=== PATIENT | female | born 1950 | race Caucasian/White ===

== ENCOUNTER 2018-04-19 16:10 | Emergency (ER) | payer MEDICARE, OTHER ==
--- OUTSIDE RECORDS SUMMARY | 2018-04-19 16:13 | XMS REPORT ---
:1950 Author Organization [facility] Address [address] [place] [address] Care Team Providers Name Role Phone RENZO MELGAR Primary Care Provider Unavailable RENZO MELGAR M.D. Unavailable Unavailable Problems This patient has no known problems. Allergies, Adverse Reactions, Alerts This patient has no known allergies or adverse reactions. Medications This patient has no known medications. Encounters Start End Encounter Admission Attending Care Care Encounter Date/Time Date/Time Type Type Clinicians Facility Department ID 2018-02-04 2018-02-04 Outpatient C [facility] [id number] 10:19:00 10:19:00 Juan MULLER Results Test Description Test Time Test Comments Text Results Atomic Results Result Comments Sed Rate ESR ([place]) 2017-09-03 02:32:00 Test Item Value Reference Range Comments ESR (test code=HESR) 24 mm/Hr 0-20 Thyroid Stimulating Hormone (TSH)2017-09-02 23:41:00 Test Item Value Reference Range Comments TSH (test code=TSH) 3.68 mIU/mL 0.270-4.200 Thyroxine (T4)2017-09-02 23:41:00 Test Item Value Reference Range Comments T4, Total (test code=TT4) 7.3 ug/dL 4.6-12.0 Lipid [id number] 23:34:00 Test Item Value Reference Range Comments Cholesterol (test 172 mg/dL 0-200 code=CHOL) Triglycerides (test 129 mg/dL 9-200 code=TRIG) HDL (test code=HDL) 39 mg/dL 50-60 Chol/HDL (test 4.4 Ratio 0.0-4.4 code=CHOLPHDL) LDL, Calculated (test 107 0-130 (NOTE)RISK OF HEART code=LDLC) DISEASEPublished by Faro[place] Heart AssociationAnalyte Optimal Boderline Increased RiskCHOL <200 200-239 >240TRIG <150 150-199 >200HDL Male: >60 <40HDL Female: >60 <50LDL <100 130-159 >160LDL NEAR OPTIMAL IS 100-129 VLDL (test code=VLDL) 26 mg/dL 5-40 LDL/HDL (test code=LDLPHDL) 3 Comprehensive Metabolic [id number] 23:34:00 Test Item Value Reference Range Comments Sodium (test code=NA) 138 mmol/L 135-145 Potassium (test code=K) 4.1 mmol/L 3.5-5.1 Chloride (test code=CL) 99 mmol/L 98-105 Carbon Dioxide (test 28 mmol/L 22-29 code=CO2) Glucose (test code=GLU) 135 mg/dL 70-115 Blood Urea Nitrogen (test 38 mg/dL 8-23 code=BUN) Creatinine (test 1.5 mg/dL 0.5-0.9 code=CREAT) Calcium (test code=CA) 9.7 mg/dL 8.3-10.5 Prot Total (test code=TP) 6.4 g/dL 6.4-8.3 Albumin (test code=ALB) 3.9 g/dL 3.5-5.2 A/G Ratio (test 1.6 Ratio code=AGRATIO) Globulin (test code=GLOB) 2.5 2.9-3.1 Bili Total (test 0.3 mg/dL 0.1-0.9 code=TBIL) Alk Phos (test 92 U/L 35-104 code=APHOS) AST (test code=AST) 24 U/L 1-32 ALT (test code=ALT) 21 U/L 1-33 BUN/Creatinine Ratio 25.3 (test code=BCRATIO) Anion Gap (test 11 mmol/L 7-16 code=AGAP) Estimated GFR (test 37 mL/min/1.73m2 eGFR (estimated Glomerular code=GFR) Filtration Rate) is an estimated value,calculated from the patient's serum creatinine using the MDRD equation.It is NOT the patient's actual GFR. The eGFR provides a more clinicallyuseful measure of kidney disease than serum creatinine alone.This calculation takes sex and race into account, if the informationis provided. If the race is not provided, and the patient isAfrican-Faroese, multiply by 1.212. If sex is not provided, and thepatient is female, multiply by 0.742. Results for patients <18 years ofage have not been validated by the MDRD study and should be interpretedwith caution.eGFR Result Interpretation:eGFR > or=60 is in the Normal RangeeGFR < 60 may mean kidney diseaseeGFR < 15 may mean kidney failureRanges recommended by the National Kidney Foundation,http://nkdep.nih .gov T3 [id number] 23:06:00 Test Item Value Reference Range Comments T3, Uptake (test code=T3U) 34 % 28-41 CBC with [id number] 22:32:00 Test Item Value Reference Range Comments WBC (test code=WBC) 8.5 K/cumm 4.4-10.5 RBC (test code=RBC) 4.32 M/cumm 3.75-5.20 Hemoglobin (test code=HGB) 12.7 gm/dL 12.2-14.8 Hematocrit (test code=HCT) 40.0 % 36.5-44.4 MCV (test code=MCV) 92.6 fL 80-100 MCH (test code=MCH) 29.3 pg 27.0-32.5 MCHC (test code=MCHC) 31.7 g/dL 32.0-37.5 RDW (test code=RDW) 13.4 % 11.5-14.5 Platelet Count (test code=PLTCT) 221 K/cumm 140-440 MPV (test code=MPV) 9.8 fL Diff Method (test code=DIFFM) Auto Neutrophil (test code=NEUT) 74.7 % 36-70 Lymphocyte (test code=LYMPH) 16.0 % 12-44 Monocyte (test code=MONO) 5.5 % 0-11 Eosinophil (test code=EOS) 3.2 % 0-7 Basophil (test code=BASO) 0.6 % 0-2 Neutro Abs (test code=ANEUT) 6.3 K/cumm 1.6-7.4 Lymph Abs (test code=ALYMPH) 1.4 K/cumm 0.5-4.6 Shannon Abs (test code=AMONO) 0.5 K/cumm 0.0-1.2 Eos Abs (test code=AEOS) 0.27 K/cumm 0.00-0.74 Baso Abs (test code=ABASO) 0.1 K/cumm 0.00-0.21
--- OUTSIDE RECORDS SUMMARY | 2018-04-19 16:13 | XMS REPORT | Clinical Summary ---
:1950 Author Organization [facility] Address [address] [place] [address] Care Team Providers Name Role Phone Gia Hayes [facility] Primary Care Provider Allergies No Known Allergies Current Medications Prescription Sig. Disp. Refills Start End Date Status Date aspirin (ECOTRIN) Take 81 mg by Active 81 MG enteric mouth daily. coated tablet atorvastatin Take 40 mg by Active (LIPITOR) 40 MG mouth daily. tablet levothyroxine Take 25 mcg by Active (SYNTHROID, mouth every LEVOXYL) 25 mcg morning. tablet magnesium oxide Take 250 mg by Active 250 mg tablet mouth daily. nitroglycerin Place 0.4 mg Active (NITROSTAT) 0.4 MG under the tongue SL tablet every 5 (five) minutes as needed for chest pain. omeprazole Take 40 mg by Active (PriLOSEC) 40 MG mouth daily. capsule primidone Take 50 mg by Active (MYSOLINE) 50 MG mouth 4 (four) tablet times a day. levETIRAcetam Take 750 mg by Active (KEPPRA) 750 MG mouth 2 (two) tablet times a day. ondansetron Take 4 mg by Active (ZOFRAN) 4 MG mouth every 8 tablet (eight) hours as needed for nausea or vomiting. sertraline Take 50 mg by Active (ZOLOFT) 50 MG mouth daily. tablet MULTIVITAMIN ORAL Take by mouth Active daily. budesonide-formote Inhale 2 puffs 2 10.2 Inhaler 0 Active rol (SYMBICORT) (two) times a 8 80-4.5 day. mcg/actuation inhaler ipratropium Take 2.5 mL (0.5 75 mL 6 01/15/20 Active (ATROVENT) 0.02 % mg total) by 8 19 nebulizer solution nebulization 4 (four) times a day. simvastatin Take 5 mg by Active (ZOCOR) 5 MG mouth nightly. tablet gabapentin Take 100 mg by Active (NEURONTIN) 100 mg mouth 2 (two) capsule times a day. budesonide Take 2 mL (0.5 mg 360 mL 2 09/07/20 Active (PULMICORT) 0.5 total) by 8 18 mg/2 mL nebulizer nebulization 2 solution (two) times a day for 180 days. budesonide Take 2 mL (0.5 mg 60 mL 6 01/15/20 Discontinued (PULMICORT) 0.5 total) by 8 18 mg/2 mL nebulizer nebulization once solution daily for 183 days. ipratropium Take 2.5 mL (0.5 75 mL 6 01/15/20 Discontinued (ATROVENT) 0.02 % mg total) by 8 18 nebulizer solution nebulization 4 (four) times a day. budesonide Take 2 mL (0.5 mg 60 mL 6 03/09/20 Discontinued (PULMICORT) 0.5 total) by 8 18 mg/2 mL nebulizer nebulization once solution daily for 183 days. budesonide Take 2 mL (0.5 mg 360 mL 2 03/09/20 Discontinued (PULMICORT) 0.5 total) by 8 18 mg/2 mL nebulizer nebulization 2 solution (two) times a day for 180 days. budesonide Take 2 mL (0.5 mg 360 mL 2 03/11/20 Discontinued (PULMICORT) 0.5 total) by 8 18 mg/2 mL nebulizer nebulization 2 solution (two) times a day for 180 days. budesonide Take 2 mL (0.5 mg 360 mL 2 03/11/20 Discontinued (PULMICORT) 0.5 total) by 8 18 mg/2 mL nebulizer nebulization 2 solution (two) times a day for 180 days. Active Problems Problem Noted Date Reactive airway disease 03/09/2018 Movement disorder 03/09/2018 Extrinsic asthma without complication 02/09/2018 Gastroesophageal reflux disease 12/31/2017 Chronic seasonal allergic rhinitis due to pollen 12/31/2017 Weight loss 12/31/2017 Dyspnea on exertion Encounters Date Type Specialty Care Team Description 03/11/2018 Orders Only Pulmonology Maty Long MA 03/09/2018 Office Visit Pulmonology Leobardo Lainez, Severe persistent reactive airway disease without complication (Primary Dx); Movement disorder; Chronic seasonal allergic rhinitis due to pollen; Gastroesophageal reflux disease, esophagitis presence not specified 03/03/2018 Orders Only Pulmonology Emre Pearson MD 02/21/2018 Orders Only Pulmonology Manuel Harmon MD 02/18/2018 Orders Only Pulmonology Dimitry Baldwin MD 02/09/2018 Office Visit Pulmonology Leobardo Lainez, Dyspnea on exertion ( Primary Dx); Chronic seasonal allergic rhinitis due to pollen; Extrinsic asthma without complication, unspecified asthma severity, unspecified whether persistent; Gastroesophageal reflux disease, esophagitis presence not specified 02/08/2018 Telephone Pulmonology Maty Long MA 02/01/2018 Orders Only Pulmonology Diana, Moderate persistent ARMIDA Da Silva reactive airway disease without complication 01/21/2018 Telephone Pulmonology Maty Long MA 01/19/2018 Telephone Pulmonology Maty Long MA 01/19/2018 Telephone Pulmonology Rekha Ortiz MA 01/12/2018 Orders Only Pulmonology Leobardo Lainez, Moderate persistent reactive airway disease without complication (Primary Dx); Chronic seasonal allergic rhinitis due to pollen; Dyspnea on exertion 01/11/2018 Orders Only Pulmonology Maty Long MA Dyspnea on exertion 12/31/2017 Clinical Support Pulmonology Agnieszka Lucero Dyspnea on exertion 12/31/2017 Clinical Support Pulmonology Agnieszka Lucero Dyspnea on exertion 12/31/2017 Office Visit Pulmonology Leobardo Lainez, Dyspnea on exertion ( Primary Dx); Gastroesophageal reflux disease, esophagitis presence not specified; Chronic seasonal allergic rhinitis due to pollen; Weight loss after 04/18/2017 Immunizations Name Dates Previously Given Next Due FLUZONE HIGH-DOSE PF 07/16/2017 Pneumococcal Polysaccharide 03/07/2018 Tdap 03/07/2018 Family History Medical History Relation Name Comments Diabetes Father Heart failure Father Diabetes Mother Heart failure Mother Relation Name Status Comments Father Mother Social History Tobacco Use Types Packs/Day Years Used Date Never Smoker Smokeless Tobacco: Never Used Alcohol Use Drinks/Week oz/Week Comments No Sex Assigned at Date Recorded Not on file Last Filed Vital Signs Vital Sign Reading Time Taken Blood Pressure 120/60 03/09/2018 10:10 AM CDT Pulse 83 03/09/2018 10:10 AM CDT Temperature 36.9 C (98.5 F) 02/09/2018 11:00 AM CDT Respiratory Rate - - Oxygen Saturation 98% 03/09/2018 10:10 AM CDT Inhaled Oxygen Concentration - - Weight 59.4 kg (131 lb) 03/09/2018 10:10 AM CDT Height - - Body Mass Index - - Plan of Treatment Date Type Specialty Care Team Description 05/11/2018 [place] [address] [facility] [address] [place] [address] [phone] Health Maintenance Due Date Last Done Comments CERVICAL CANCER SCREENING 1973 BREAST CANCER SCREENING 2002 COLON CANCER SCREENING 2002 SHINGRIX VACCINE (#1) 2002 ZOSTER VACCINE 2012 PNEUMOCOCCAL-13 2017 INFLUENZA VACCINE 06/15/2018 07/16/2017, 07/16/2017 (Previously completed) PNEUMOCOCCAL POLYSACCHARIDE VACCINE Completed 03/07/2018 AGE 65 AND OVER Procedures Procedure Name Priority Date/Time Associated Diagnosis Comments CV RIGHT HEART CATH Routine 02/04/2018 12:00 AM CDT SELECTIVE CORONARY COLONOSCOPY-EXTERNAL Routine 10/15/2017 12:00 AM [employer]PER[employer] after 04/18/2017 Results Cv right heart cath with coronary angiography (02/04/2018)Case Request GI (12/17)Miscellaneous Lab Result (11/19/2017) Specimen Performing Laboratory Blood Surgical pathology request (10/20/2017) Specimen Performing Laboratory Tissue COLONOSCOPY-EXTERNAL (10/15/2017)NM Brain Scan W Vascular Flow (09/21/2017)MRI Brain Wo Contrast (08/17/2017)after 04/18/2017 Insurance Payer Benefit Plan / Group Subscriber ID Type Phone Address MEDICAID MEDICAID xxxxxxxxx Medicaid [facility] MEDICARE AARP MEDICARE COMPLETE MCR xxxxxxxxx HMO Home: [phone] BRUNIL[address]IETO [id number]
[2018-04-19] MEDS ORDERED: MEPERIDINE HCL 25 MG/0.5 ML ONE ×2 (16:46→16:53)
[2018-04-19] MEDS ORDERED: NA CHLORIDE 0.9% 500 ML ONE (16:46)
[2018-04-19] MEDS ORDERED: ONDANSETRON 4 MG/2 ML VIAL ONE (16:56)
--- NOTE | 2018-04-19 17:14 | RAD REPORT ---
EXAM DESCRIPTION: CT - Head Brain Wo Cont - 04/19/2018 5:06 pm CLINICAL HISTORY: Headache COMPARISON: 03/15/2017 TECHNIQUE: All CT scans are performed using dose optimization technique as appropriate and may inclu de automated exposure control or mA/KV adjustment according to patient size. FINDINGS: No intracranial hemorrhage, hydrocephalus or extra-axial fluid collection.No areas of brai n edema or evidence of midline shift. The paranasal sinuses and mastoids are clear. Two screws are noted in the frontal calvarium. Vertebra l arteries are calcified. IMPRESSION: No acute intracranial abnormality.
--- NOTE | 2018-04-19 18:55 | EDPHYS ---
Physician Documentation [facility] Name: Kailey Mcdermott Age: 67 yrs Sex: Female : 1950 Arrival Date: 04/19/2018 Time: 16:14 Bed 6 Private MD: Out, [facility] ED Physician Ted Yap HPI: 04/19 17:01 This 67 yrs old Female presents to ER via Ambulatory with complaints of rn headache. Historical: - Allergies: 16:23 No Known Allergies; aj - Home Meds: 16:23 aspirin 81 mg Oral TbEC 1 tab once daily [Active]; Keppra 750 mg Oral tab 1 tab 2 times aj per day [Active]; levothyroxine 25 mcg tab once daily [Active]; gabapentin oral oral [Active]; Zocor Oral [Active]; Primidone Oral [Active]; - PMHx: 16:23 Anxiety; benign tremors; GERD; Hernia; High Cholesterol; Hypertension; Hypothyroidism; aj narrowed throat; Seizures; - PSHx: 16:23 Deep brain stimulator; aj - Immunization history:: Adult Immunizations up to date. - Social history:: Smoking status: Patient/guardian denies using tobacco. - Ebola Screening: : Patient negative for fever greater than or equal to 101.5 degrees Fahrenheit, and additional compatible Ebola Virus Disease symptoms Patient denies exposure to infectious person Patient denies travel to an Ebola-affected area in the 21 days before illness onset No symptoms or risks identified at this time. - Family history:: not pertinent. - Hospitalizations: : No recent hospitalization is reported. ROS: 18:09 Constitutional: Negative for fever, chills, and weight loss, Eyes: Negative for injury, rn pain, redness, and discharge, Neck: Negative for injury, pain, and swelling, Cardiovascular: Negative for chest pain, palpitations, and edema, Respiratory: Negative for shortness of breath, cough, wheezing, and pleuritic chest pain, Abdomen/GI: Negative for abdominal pain, nausea, vomiting, diarrhea, and constipation, Back: Negative for injury and pain, MS/Extremity: Negative for injury and deformity, Skin: Negative for injury, rash, and discoloration, Neuro: Negative for numbness, tingling, and seizure. Exam: 18:09 Constitutional: This is a well developed, well nourished patient who is awake, alert, rn and in no acute distress. Head/Face: Normocephalic, 4 sutured surgical wounds on scalp, no active bleeding, no crepitus or sign of infection Eyes: Pupils equal round and reactive to light, extra-ocular motions intact. Lids and lashes normal. Conjunctiva and sclera are non-icteric and not injected. Cornea within normal limits. Periorbital areas with no swelling, redness, or edema. Neuro: Awake and alert, GCS 15, oriented to person, place, time, and situation. Cranial nerves II-XII grossly intact. Motor strength 4+/5 in all extremities. Sensory grossly intact. Vital Signs: 16:23 BP 145 / 79; Pulse 91; Resp 16; Temp 98.7; Pulse Ox 95% ; Weight 58.06 kg; Height 5 ft. aj 8 in. (172.72 cm); 17:23 BP 148 / 76; Pulse 57; Resp 17; Pulse Ox 95% on R/A; tw2 18:24 BP 148 / 77; Pulse 78; Resp 16; Pulse Ox 95% on R/A; tw2 16:23 Body Mass Index 19.46 (58.06 kg, 172.72 cm) aj Simpson Coma Score: 18:09 Eye Response: spontaneous(4). Verbal Response: oriented(5). Motor Response: obeys rn commands(6). Total: 15. MDM: 16:35 Patient medically screened. rn 18:09 Differential diagnosis: migraine, post-surgical pain, post-surgical complication. Data rn reviewed: vital signs, nurses notes, radiologic studies, CT scan, and as a result, I will discharge patient. Counseling: I had a detailed discussion with the patient and/or guardian regarding: the historical points, exam findings, and any diagnostic results supporting the discharge/admit diagnosis, radiology results, the need for outpatient follow up, to return to the emergency department if symptoms worsen or persist or if there are any questions or concerns that arise at home. 18:11 Special discussion: I discussed with the patient/guardian in detail that at this point rn there is no indication for admission to the hospital. It is understood, however, that if the symptoms persist or worsen the patient needs to return immediately for re-evaluation. 04/19 16:42 Order name: CT Head Brain wo Cont; Complete Time: 17:25 rn 06/05 16:42 Order name: IV Start; Complete Time: 16:59 rn Administered Medications: 16:50 Drug: NS 0.9% 500 ml Route: IV; Rate: bolus; Site: right antecubital; tw2 16:53 Drug: Demerol 25 mg Route: IVP; Site: right antecubital; tw2 16:57 Drug: Zofran 4 mg Route: IVP; Site: right antecubital; 2 Disposition: 04/19/18 18:54 Discharged to Home. Impression: Headache, Post-operative pain. - Condition is Stable. - Discharge Instructions: General Headache Without Cause. - Prescriptions for Zofran ODT 4 mg Oral tablet,disintegrating - place 1 tablet by TRANSLINGUAL route every 8-10 hours As needed; 20 tablet. Tylenol- Codeine #3 300-30 mg Oral Tablet - take 1 tablet by ORAL route every 6 hours As needed; 20 tablet. - Medication Reconciliation Form, Thank You Letter, Antibiotic Education, Prescription Opioid Use form. - Follow up: Private Physician; When: As needed; Reason: Recheck today's complaints, Re-evaluation by your physician. - Problem is new. - Symptoms have improved. Signatures: Dispatcher [employer] EDMS Migel Grimm RN RN sg Myers, Amanda RN Ted Storey MD MD rn Wise, Tara, RN RN tw2 Corrections: (The following items were deleted from the chart) 19:04 18:54 04/19/2018 18:54 Discharged to Home. Impression: Headache; Post-operative pain. sg Condition is Stable. Forms are Medication Reconciliation Form, Thank You Letter, Antibiotic Education, Prescription Opioid Use. Follow up: Private Physician; When: As needed; Reason: Recheck today's complaints, Re-evaluation by your physician. Problem is new. Symptoms have improved. rn
--- NOTE | 2018-04-19 18:55 | ER ---
Nurse's Notes [facility] Name: Kailey Mcdermott Age: 67 yrs Sex: Female : 1950 Arrival Date: 04/19/2018 Time: 16:14 Bed 6 Private MD: Out, [facility] Diagnosis: Headache;Post-operative pain Presentation: 04/19 16:20 Presenting complaint: Patient states: Deep brain stimulator placed this AM. Reports aj small amount of bleeding from insertion sites with pain to site on left side of head. Transition of care: patient was not received from another setting of care. Onset of symptoms was April 19, 2018. Risk Assessment: Do you want to hurt yourself or someone else? Patient reports no desire to harm self or others. Care prior to arrival: None. 16:20 Method Of Arrival: Ambulatory aj 16:20 Acuity: MERYL 3 aj 18:26 Initial Sepsis Screen: Does the patient meet any 2 criteria? No. Patient's initial tw2 sepsis screen is negative. Does the patient have a suspected source of infection? No. Patient's initial sepsis screen is negative. Triage Assessment: 16:23 General: Appears in no apparent distress. comfortable, Behavior is calm, cooperative, aj appropriate for age. Pain: Complains of pain in face and scalp. Neuro: Level of Consciousness is awake, alert, obeys commands, Oriented to person, place, time, situation, Appropriate for age. Respiratory: Airway is patent Respiratory effort is even, unlabored, Respiratory pattern is regular, symmetrical. GI: Reports nausea. Derm: Skin is intact, is healthy with good turgor, Skin is pink, warm \\T\\ dry. normal. Historical: - Allergies: 16:23 No Known Allergies; aj - Home Meds: 16:23 aspirin 81 mg Oral TbEC 1 tab once daily [Active]; Keppra 750 mg Oral tab 1 tab 2 times aj per day [Active]; levothyroxine 25 mcg tab once daily [Active]; gabapentin oral oral [Active]; Zocor Oral [Active]; Primidone Oral [Active]; - PMHx: 16:23 Anxiety; benign tremors; GERD; Hernia; High Cholesterol; Hypertension; Hypothyroidism; aj narrowed throat; Seizures; - PSHx: 16:23 Deep brain stimulator; aj - Immunization history:: Adult Immunizations up to date. - Social history:: Smoking status: Patient/guardian denies using tobacco. - Ebola Screening: : Patient negative for fever greater than or equal to 101.5 degrees Fahrenheit, and additional compatible Ebola Virus Disease symptoms Patient denies exposure to infectious person Patient denies travel to an Ebola-affected area in the 21 days before illness onset No symptoms or risks identified at this time. - Family history:: not pertinent. - Hospitalizations: : No recent hospitalization is reported. Screenin:26 Abuse screen: Denies threats or abuse. Nutritional screening: No deficits noted. tw2 Tuberculosis screening: No symptoms or risk factors identified. Fall Risk None identified. Assessment: 15:23 General: Appears uncomfortable, Behavior is calm, cooperative, appropriate for age. tw2 Pain: Complains of pain in scalp. Neuro: Level of Consciousness is awake, alert, obeys commands, Oriented to person, place, time, situation. Cardiovascular: Denies chest pain, shortness of breath, Heart tones S1 S2 Capillary refill < 3 seconds Patient's skin is warm and dry. Respiratory: Airway is patent Respiratory effort is even, unlabored, Respiratory pattern is regular, symmetrical, Breath sounds are clear. GI: Abdomen is flat, Bowel sounds present X 4 quads. Reports nausea. : No signs and/or symptoms were reported regarding the genitourinary system. EENT: No signs and/or symptoms were reported regarding the EENT system. Derm: "i had probes placed in my scalp today and they sent me home with no discharge papers". Musculoskeletal: Range of motion: intact in all extremities. 17:23 Reassessment: Patient appears in no apparent distress at this time. No changes from tw2 previously documented assessment. Patient and/or family updated on plan of care and expected duration. Pain level reassessed. Patient is alert, oriented x 3, equal unlabored respirations, skin warm/dry/pink. 18:24 Reassessment: Patient appears in no apparent distress at this time. No changes from tw2 previously documented assessment. Patient and/or family updated on plan of care and expected duration. Pain level reassessed. Patient is alert, oriented x 3, equal unlabored respirations, skin warm/dry/pink. Patient states feeling better. Vital Signs: 16:23 BP 145 / 79; Pulse 91; Resp 16; Temp 98.7; Pulse Ox 95% ; Weight 58.06 kg; Height 5 ft. aj 8 in. (172.72 cm); 17:23 BP 148 / 76; Pulse 57; Resp 17; Pulse Ox 95% on R/A; tw2 18:24 BP 148 / 77; Pulse 78; Resp 16; Pulse Ox 95% on R/A; tw2 16:23 Body Mass Index 19.46 (58.06 kg, 172.72 cm) aj [place] Coma Score: 18:09 Eye Response: spontaneous(4). Verbal Response: oriented(5). Motor Response: obeys rn commands(6). Total: 15. ED Course: 16:14 Patient arrived in ED. sb2 16:15 Out, [facility] is Private Physician. sb2 16:22 Triage completed. aj 16:23 Arm band placed on right wrist. Patient placed in an exam room. aj 16:24 Placed in gown. Bed in low position. Side rails up X2. Adult w/ patient. Cardiac tw2 monitor on. Pulse ox on. NIBP on. Warm blanket given. 16:27 Migel Grimm, RN is Primary Nurse. sg 16:35 Ted Yap MD is Attending Physician. rn 16:[address] 16:50 Inserted saline lock: 22 gauge in right antecubital area, using aseptic technique. tw2 Blood collected. 17:06 CT Head Brain wo Cont In Process Unspecified. EDMS 17:06 CT completed. Patient tolerated procedure well. Patient moved back from CT. vr 18:27 No provider procedures requiring assistance completed. tw2 Administered Medications: 16:50 Drug: NS 0.9% 500 ml Route: IV; Rate: bolus; Site: right antecubital; tw2 16:53 Drug: Demerol 25 mg Route: IVP; Site: right antecubital; tw2 16:57 Drug: Zofran 4 mg Route: IVP; Site: right antecubital; tw2 Outcome: 18:54 Discharge ordered by . rn 19:04 Patient left the ED. sg Signatures: Dispatcher [employer] EDMS Migel Grimm RN RN sg Myers, Amanda, RN RN aj Jones, Susan sj Nieto, Roman, MD MD rn Davis, Victoria Raquel Valentine RN RN tw2 Cecilia Gaines sb2
[2018-04-19 20:13] VITALS: TEMP 98.7; O2SAT 95
[2018-04-19 20:15] VITALS: BP 148/77
== END 2018-04-19 19:04 | disposition home or self-care (01) ==
LOC: ER 16:10
DX: R51 Headache (principal); I10 Essential (primary) hypertension; E03.9 Hypothyroidism, unspecified; R56.9 Unspecified convulsions; E78.00 Pure hypercholesterolemia, unspecified
CPT/HCPCS: 70450; 96374; 96375; 99285; J2175 ×2; J2405

== ENCOUNTER 2020-07-07 20:04 | Inpatient (IN) | payer OTHER ==
--- OUTSIDE RECORDS SUMMARY | 2020-07-07 20:05 | XMS REPORT | Clinical Summary ---
:1950 Author Organization [facility] Address [address] [place] [address] Care Team Providers Name Role Phone Gia Hayes LIS Primary Care Provider Allergies No Known Allergies Medications Medication Sig Dispensed Refills Start Date End Date Status aspirin (ECOTRIN) 81 Take 81 mg by 0 Active MG enteric coated mouth daily. tablet atorvastatin (LIPITOR) Take 40 mg by 0 Active 40 MG tablet mouth daily. levothyroxine Take 25 mcg by 0 A ctive (SYNTHROID, LEVOXYL) mouth every 25 mcg tablet morning. magnesium oxide 250 mg Take 250 mg by 0 Active tablet mouth daily. nitroglycerin Place 0.4 mg under 0 Active (NITROSTAT) 0.4 MG SL the tongue every 5 tablet (five) minutes as needed for chest pain. omeprazole (PriLOSEC) Take 40 mg by 0 Active 40 MG capsule mouth daily. primidone (MYSOLINE) Take 50 mg by 0 Active 50 MG tablet mouth 4 (four) times a day. levETIRAcetam (KEPPRA) Take 750 mg by 0 Active 750 MG tablet mouth 2 (two) times a day. ondansetron (ZOFRAN) 4 Take 4 mg by mouth 0 Active MG tablet every 8 (eight) hours as needed for nausea or vomiting. sertraline (ZOLOFT) 50 Take 50 mg by 0 Active MG tablet mouth daily. MULTIVITAMIN ORAL Take by mouth 0 Active daily. simvastatin (ZOCOR) 5 Take 5 mg by mouth 0 Active MG tablet nightly. gabapentin (NEURONTIN) Take 100 mg by 0 Active 100 mg capsule mouth 2 (two) times a day. ipratropium (ATROVENT) Take 2.5 mL (0.5 75 mL 3 12/07/2018 0.02 % nebulizer mg total) by 0 solutionIndications: nebulization 4 Severe persistent (four) times a day reactive airway as needed for disease without wheezing or complication, Chronic shortness of seasonal allergic breath. rhinitis due to pollen, Gastroesophageal reflux disease, esophagitis presence not specified Active Problems Problem Noted Date S/P deep brain stimulator placement 05/12/2018 Reactive airway disease 03/09/2018 Movement disorder 03/09/2018 Extrinsic asthma without complication 02/09/2018 Gastroesophageal reflux disease 12/31/2017 Chronic seasonal allergic rhinitis due to pollen 12/31 Weight loss 12/31/2017 Dyspnea on exertion Immunizations Name Administration Dates Next Due FLUZONE HIGH-DOSE PF 07/16/2017 Pneumococcal Conjugate 13-Valent 12/07/2018 Pneumococcal Polysaccharide 03/07/2018 Tdap 03/07/2018 Family History Medical History Relation Name Comments Diabetes Father Heart failure Father Diabetes Mother Heart failure Mother Relation Name Status Comments Father Mother Social History Tobacco Use Types Packs/Day Years Used Date Never Smoker Smokeless Tobacco: Never Used Alcohol Use Drinks/Week oz/Week Comments No Sex Assigned at Date Recorded Not on file Job Start Date Occupation Industry Not on file Not on file Not on file Travel History Travel Start Travel End No recent travel history available. Last Filed Vital Signs Not on file Plan of Treatment Health Maintenance Due Date Last Done Comments BREAST CANCER SCREENING 2002 COLONOSCOPY SCREENING 2002 SHINGLES VACCINES (#1) 2002 INFLUENZA VACCINE 08/15/2020 07/16/2017, 07/16/2017 (Previo usly completed) 65+ PNEUMOCOCCAL VACCINE Completed 12/07/2018, 03/07/2018 Results Not on fileafter 07/07/2019 Insurance Payer Benefit Plan / Subscriber ID Effective Dates Phone Addre ss Type Group MEDICAID MEDICAID xxxxxxxxx 2017-Present Med icaid AETNA MEDICARE AETNA MEDICARE xxxxxxxx 2018-Present HMO HMO/PPO [facility] Advance Directives For more information, please contact: [phone] 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
--- OUTSIDE RECORDS SUMMARY | 2020-07-07 20:06 | XMS REPORT | Summary of Care ---
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 [place], [place] [id number] [phone] Allergies No Known Allergiesdocumented as of this encounter (statuses as of 04/09/2020) Medications Medication Sig Dispensed Refills Start Date End Date Status aspirin 81 mg EC tablet Take 81 mg by 0 Active mouth. gabapentin 100 mg Take 100 mg by 0 Active capsule mouth. levETIRAcetam 750 mg 0 12/08/2019 Active tablet levothyroxine 25 mcg Take 25 mcg by 0 Active tablet mouth. Magnesium Oxide 250 mg Take 250 mg by 0 Active magnesium Tab mouth. Nitrofurantoin&Nit. 0 12/28/2019 Active Macrocryst 100 mg capsule omeprazole 40 mg Take 40 mg by 0 Active capsule mouth. primidone 50 mg tablet Take 50 mg by 0 Active mouth. SERTraline 50 mg tablet Take 50 mg by 0 Active mouth. simvastatin 5 mg tablet Take 5 mg by 0 Active mouth. topiramate 50 mg tablet 0 12/08/2019 Active traMADol 50 mg tablet 0 12/02/2019 Active dicyclomine 20 mg 0 03/25/2020 A ctive tablet alendronate 70 mg 0 02/20/2020 A ctive tablet cyclosporine (RESTASIS Place in each 0 Active OPHTHALMIC) eye. cholecalciferol, Take 1,000 Units 0 Active vitamin D3, (VITAMIN by mouth daily. D3) 25 mcg (1,000 unit) tablet ondansetron 4 mg Take 4 mg by 0 Active disintegrating tablet mouth every 8 (eight) hours as needed. nitroglycerin 0.[address] 0.4 mg 0 Active sublingual tablet under the tongue every 5 (five) minutes as needed for Chest pain. cephALEXin 250 mg Take 1 capsule 28 capsule 0 04/05/2020 Active capsuleIndications: by mouth every 6 Recurrent UTI (six) hours. documented as of this encounter (statuses as of 04/09/2020) Active Problems No known active problemsdocumented as of this encounter (statuses as of 04/09/2020) Social History Tobacco Use Types Packs/Day Years Used Date Never Smoker Smokeless Tobacco: Never Used Alcohol Use Drinks/Week oz/Week Comments Never Alcohol Habits Answer Date Recorded How often do you have a drink containing alcohol? Never 03/25/2020 How many drinks containing alcohol do you have on a typical Not asked day when you are drinking? How often do you have six or more drinks on one occasion? No t asked Sex Assigned at Date Recorded Not on file Job Start Date Occupation Industry Not on file Not on file Not on file Travel History Travel Start Travel End No recent travel history available. COVID-19 Exposure Response Date Recorded In the last month, have you been in contact with No / Unsure 04/05/2020 3:06 PM CDT someone who was confirmed or suspected to have Coronavirus / COVID-19? documented as of this encounter Last Filed Vital Signs Not on filedocumented in this encounter Plan of Treatment Date Type Specialty Care Team Description 04/11/2020 Nurse Visit Urology Nurse, Adc Surgery Gu Name Type Priority Associated Diagnoses Order S chedule CT ABDOMEN PELVIS WO IMAGING Routine Recurrent U TI Expected: 04/09/2020, CONTRAST Incomplete bladder Expires: 04/09/2021 emptying Health Maintenance Due Date Last Done Comments HEPATITIS C (HCV) SCREEN 1950 DTaP,Tdap,and Td Vaccines (1 - Tdap) 1963 Breast Cancer Screening (MAMMOGRAM) 1992 COLONOSCOPY 2002 Zoster Recombinant Vaccine (SHINGRIX) (1 of 2) 2002 Medicare Wellness Visit 2017 Osteoporosis Screening 2017 PNEUMOCOCCAL VACCINES 65+ (1 of 2 - PCV13) 2017 INFLUENZA VACCINE (Season Ended) 2020 07/16/2017 documented as of this encounter Results Not on filedocumented in this encounter Visit Diagnoses Diagnosis Recurrent UTI - Primary Urinary tract infection, site not specif ied Incomplete bladder emptying documented in this encounter Insurance Payer Benefit Plan / Subscriber ID Effective Dates Phone Addre ss Type Group MEDICARE MEDICARE PART xxxxxxxxxxx 2017-Kennedi [id number] [place] [id number] [facility] MEDICAID OF xxxxxxxxx 2018-Gunnar [phone] Medicaid [place] [id number] [place] [address] documented as of this encounter
--- OUTSIDE RECORDS SUMMARY | 2020-07-07 20:06 | XMS REPORT | Continuity of Care Document ---
:1950 Author Organization Formerly [facility] t Address [address] [place] [address] Care Team Providers Name Role Phone TALIA Primary Care Physician Unavailable Doctor Unassigned, Name Attending Clinician Unavailable Mike GUZMÁN, L Attending Clinician RENZO MELGAR M.D. Attending Clinician Unavailable RENZO MELGAR M.D. 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 4-25 Method i 00:00: st 00 Extrinsic Extrinsic Disease Active [facility] ston asthma asthma 3-28 [facility] without without 00:00: st complicati complicati 00 on on Gastroesop Gastroesop Disease Active [place] hageal hageal 2-16 [facility] reflux reflux 00:00: st disease disease 00 Chronic Chronic Disease Active [place] seasonal seasonal 2-16 Method i allergic allergic 00:00: st rhinitis rhinitis 00 due to due to pollen pollen Weight Weight Disease Active [place] loss loss 2-16 Methodi 00:00: st 00 Right Right Diagnosis Active [facility] sci[facility]atic [facility] pain nerve pain Me alex[facility] Pain, Pain, Diagnosis Active [facility] joint, joint, [facility] - hip, right hip, right Me moria l [facility] Pain, Pain, Diagnosis Active [facility] joint, joint, [facility] - knee, knee, Memoria right right l [facility] Dyspnea on Dyspnea on Disease Active [place] exertion exertion Method i st Allergies, Adverse Reactions, Alerts Allergy Allergy Status Severity Reaction(s) Onset Inactive Treating Comm ents Source Name Type Date Date Clinician No Known DA Active U 2011-11 [facility] All[facility]ie 12[facility]08 [place] [facility] Family History Family Member Diagnosis Comments Start Date Stop Date Source Natural father Diabetes [facility] thodi Natural father Heart failure [place] Caodaism [facility] mother Heart [facility] Social History Social Habit Start Date Stop Date Quantity Comments Source Sex Assigned At [facility] ethodist Alcohol intake 2018-12-07 2018-12-07 [facility] 00[facility]00:00 non-drinker of alcohol (finding) Smoking Status Start Date Stop Date Source Never smoker [place] [facility] Medications Ordered Filled Start Stop Current Ordering Indication Dosage Frequency Signature Comments Components Source Medication Medication Date Date Medication? Clinician (SIG) Name Name aspirin Yes 81mg QD Take 81 mg [place] (ECOTRIN) 23 by mouth Method i 81 MG 11:31: daily. st enteric 12 coated tablet atorvastati Yes 40mg QD Take 40 mg [place] n (LIPITOR) 23 by mouth Meth emmanuel 40 MG 11:31: daily. st tablet 12 levothyroxi Yes 25ug QD Take 25 [facility] ston ne 1-23 mcg by [facility] (SYNTHROID, 11:31: mouth st LEVOXYL) 25 12 every mcg tablet morning. magnesium Yes 250mg QD Take 250 [place] ston oxide 250 1-23 mg by [facility]i mg tablet 11:31: mouth st 12 daily. nitroglycer Yes .4mg Place 0.4 [place] in 1-23 mg under [facility] (NITROSTAT) 11:31: the tongue st 0.4 MG SL 12 every 5 tablet (five) minutes as needed for chest pain. omeprazole 2019-0 Yes 40mg QD Take 40 mg [place] (PriLOSEC) 23 by mouth Metho di 40 MG 11:31: daily. st capsule 12 primidone 2019-0 Yes 50mg Q.25D Take 50 mg [place] (MYSOLINE) -23 by mouth 4 Met hodi 50 MG 11:31: (four) st tablet 12 times a day. levETIRAcet 2019-0 Yes 750mg Q.5D Take 750 [place] am (KEPPRA) 1-23 mg by Methodi 750 MG 11:31: mouth 2 st tablet 12 (two) times a day. ondansetron 2019-0 Yes 4mg Q8H Take 4 mg [place] (ZOFRAN) 4 23 by mouth Metho di MG tablet 11:31: every 8 st 12 (eight) hours as needed for nausea or vomiting. sertraline 2019-0 Yes 50mg QD Take 50 mg [place] (ZOLOFT) 50 23 by mouth Meth emmanuel MG tablet 11:31: daily. st 12 MULTIVITAMI 2019-0 Yes QD Take by Juanjo ston N ORAL 23 mouth Methodi 11:31: daily. st 12 simvastatin 2019-0 Yes 5mg QD Take 5 mg [place] (ZOCOR) 5 23 by mouth Method i MG tablet 11:31: nightly. st 12 gabapentin 2019-0 Yes 100mg Q.5D Take 100 [place] (NEURONTIN) 1-23 mg by Methodi 100 mg 11:31: mouth 2 st capsule 12 (two) times a day. ipratropium 20190 2020- No Gastroesoph .5mg Q.25D Take 2.5 [place] (ATROVENT) 23 23 ageal mL (0.5 mg M ethodi 0.02 % 00:00: 23:59 reflux total) by st nebulizer 00 :00 disease, nebulizati solution esophagitis on 4 presence (four) not times a specified day as needed for wheezing or shortness of breath. Alendronate Alendronate Yes Greg not [facility] Sodium Sodium Gonsalves defined [facility] Levothyroxi Levothyroxi Yes Greg not [facility] ne Sodium ne Sodium Gonsalves defined [facility] Ondansetron Ondansetron Yes Greg not [facility] Gonsalves defined [facility] Simvastatin Simvastatin Yes Greg not [facility]alves defined [facility] Sertraline Sertraline Yes Greg not [facility] HCl HCl Gonsalves defined [facility] Gabapentin Gabapentin Yes Greg not [facility]ons[facility] Naproxen Naproxen Yes Greg not [facility] Primidone Primidone Yes Greg not [facility] Levetiracet Levetiracet Yes Greg not [facility] am am Gonsalves defined [facility] Ciprofloxac Ciprofloxac Yes Greg not [facility] in HCl in HCl [facility]onsalves defined [facility] Diphenoxyla Diphenoxyla Yes Greg not [facility] te-Atropine te-Atropine Gonsalves defined [facility] Immunizations Ordered Immunization Filled Immunization Date Status Commen ts Source Name Name Pneumococcal 2018-12-07 Completed [place] Conjugate 13-Valent 00:00:00 [facility] dist Pneumococcal 2018-03-07 Completed [place] Polysaccharide 00:00:00 Caodaism Tdap 2018-03-07 Completed [place] 00:00:00 Caodaism FLUZONE HIGH-DOSE PF 2017-07-16 Completed [facility] ton 00:00:00 Caodaism Procedures This patient has no known procedures. Plan of Care Planned Activity Planned Date Details Comments Source Future Scheduled 2020-08-15 INFLUENZA VACCINE [place] [facility] Test 00:00:00 [code = INFLUENZA VACCINE] Future Scheduled 2002 BREAST CANCER [facility] thodist Test 00:00:00 SCREENING [code = BREAST CANCER SCREENING] Future Scheduled 2002 COLONOSCOPY SCREENING [facility] Caodaism Test 00:00:00 [code = COLONOSCOPY SCREENING] Future Scheduled 2002 SHINGLES VACCINES [place] [facility] Test 00:00:00 (#1) [code = SHINGLES VACCINES (#1)] Encounters Start End Encounter Admission Attending Care Care Encounter Source Date/Time Date/Time Type Type Clinicians Facility Department ID 2020-06-06 2020-06-06 Orders Doctor DAVEY [id number] 15 00:00:00 00:00:00 Only Unassigned, JUNI [id number] [facility] [id number] 2020-03-25 2020-03-25 Office ERIKA Mckeon [id number] 14:10:07 15:22:21 Visit En [facility] [id number] Surgical [id number] Specialti [id number] es [address] [place] 2019-06-22 2019-06-22 Outpatient Sahara [place] [id number] 08:00:00 08:00:00 t [facility] 2018-02-04 2018-02-04 [facility] [id number] 10:19:00 10:19:00 [facility] Test Description Test Time Test Comments Results Result Comments Source COMPREHENSIVE METABOLIC PANEL 2020-05-12 09:59:00 Test Item Value Reference Range Interpretation Comme nts SODIUM (test code = NA) 140 mmol/L 134-147 N POTASSIUM (test code = K) 4.3 mmol/L 3.4-5.0 N CHLORIDE (test code = CL) 108 mmol/L 100-108 N CARBON DIOXIDE (test code = CO2) 29 mmol/L 21-32 N ANION GAP (test code = GAP) 3.0 GAP calc 4.0-15.0 L GLUCOSE (test code = GLU) 138 MG/DL 70-110 H BLOOD UREA NITROGEN (test code = BUN) 24 MG/DL 7-18 H GLOMERULAR FILTRATION RATE (test code = GFR) 40 estGFR >60 L CREATININE (test code = CREAT) 1.4 MG/DL 0.6-1.0 H TOTAL PROTEIN (test code = PROT) 6.2 G/DL 6.4-8.2 L ALBUMIN (test code = ALB) 2.5 G/DL 3.4-5.0 L GLOBULIN (test code = GLOB) 3.7 GM/dL ALBUMIN/GLOBULIN RATIO (test code = A/G) 0.7 RATIO 1.2-2.2 L CALCIUM (test code = CA) 8.2 MG/DL 8.5-10.1 L BILIRUBIN TOTAL (test code = BILT) 0.20 MG/DL 0.2-1.2 N SGOT/AST (test code = AST) 15 Unit/L 15-37 N SGPT/ALT (test code = ALT) 13 Unit/L 12-78 N ALKALINE PHOSPHATASE TOTAL (test code = ALKP) 92 Unit/L 45-117 N CBC W/AUTO [id number] 09:46:00 Test Item Value Reference Range Interpretation Comments WHITE BLOOD CELL (test code = 5.6 K/mm3 3.5-11.0 N WBC) RED BLOOD CELL (test code = 4.20 M/mm3 4.70-6.10 L RBC) HEMOGLOBIN (test code = HGB) 11.7 G/DL 10.4-14.9 N HEMATOCRIT (test code = HCT) 37.5 % 31.5-44.1 N MEAN CELL VOLUME (test code = 89.3 Fl 84.5-98.6 N MCV) MEAN CELL HGB (test code = MCH) 27.9 pg 27.0-34.2 N MEAN CELL HGB CONCETRATION 31.2 G/DL 31.5-34.0 L (test code = MCHC) RED CELL DISTRIBUTION WIDTH 13.2 SD 11.5-14.5 N (test code = RDW) PLATELET COUNT (test code = 226 K/mm3 150-450 N PLT) MEAN PLATELET VOLUME (test code 10.70 fL 7.0-10.5 H = MPV) NEUTROPHIL % (test code = NT%) 71.9 % 40-76 N LYMPHOCYTE % (test code = LY%) 12.5 % 20.5-51.1 L MONOCYTE % (test code = MO%) 6.6 % 1.7-9.3 N EOSINOPHIL % (test code = EO%) 7.8 % 0.0-6.0 H BASOPHIL % (test code = BA%) 0.7 % 0.0-2.0 N NUCLEATED RBC % (test code = 0.0 /100WBC% 0.0-1.0 N NRBC%) NEUTROPHIL # (test code = NT#) 4.0 K/mm3 1.8-7.6 N IMMATURE GRANULOCYTE # (test 0.03 x10 3/uL 0.00-0.03 N code = IG#) LYMPHOCYTE # (test code = LY#) 0.7 K/mm3 0.6-3.2 N MONOCYTE # (test code = MO#) 0.4 K/mm3 0.3-1.1 N EOSINOPHIL # (test code = EO#) 0.4 K/mm3 0.0-0.4 N BASOPHIL # (test code = BA#) 0.0 K/mm3 0.0-0.1 N NUCLEATED RBC # (test code = 0.0 K/mm3 0.0-0.1 N NRBC#) MANUAL DIFF REQUIRED (test code NO DIFF/SCN CRITERIA = MDIFF) GLUCOSE BEDSIDE [id number] 20:26:00 Test Item Value Reference Range Interpretation Comments GLUCOSE BEDSIDE TESTING (test code = 75 mg/dL 70-110 N GLUBED) GLUCOSE BEDSIDE [id number] 17:40:00 Test Item Value Reference Range Interpretation Comments GLUCOSE BEDSIDE TESTING (test code = 93 mg/dL 70-110 N GLUBED) BASIC METABOLIC [id number] 06:12:00 Test Item Value Reference Range Interpretation Comments SODIUM (test code = NA) 140 mmol/L 134-147 N POTASSIUM (test code = K) 4.4 mmol/L 3.4-5.0 N CHLORIDE (test code = CL) 107 mmol/L 100-108 N CARBON DIOXIDE (test code = CO2) 28 mmol/L 21-32 N ANION GAP (test code = GAP) 5.0 GAP calc 4.0-15.0 N GLUCOSE (test code = GLU) 100 MG/DL 70-110 N BLOOD UREA NITROGEN (test code = 28 MG/DL 7-18 H BUN) GLOMERULAR FILTRATION RATE (test 37 estGFR >60 L code = GFR) CREATININE (test code = CREAT) 1.5 MG/DL 0.6-1.0 H CALCIUM (test code = CA) 8.7 MG/DL 8.5-10.1 N CBC W/AUTO [id number] 06:03:00 Test Item Value Reference Range Interpretation Comments WHITE BLOOD CELL (test code = 7.8 K/mm3 3.5-11.0 N WBC) RED BLOOD CELL (test code = 4.22 M/mm3 4.70-6.10 L RBC) HEMOGLOBIN (test code = HGB) 11.7 G/DL 10.4-14.9 N HEMATOCRIT (test code = HCT) 37.3 % 31.5-44.1 N MEAN CELL VOLUME (test code = 88.4 Fl 84.5-98.6 N MCV) MEAN CELL HGB (test code = MCH) 27.7 pg 27.0-34.2 N MEAN CELL HGB CONCETRATION 31.4 G/DL 31.5-34.0 L (test code = MCHC) RED CELL DISTRIBUTION WIDTH 13.1 SD 11.5-14.5 N (test code = RDW) PLATELET COUNT (test code = 213 K/mm3 150-450 N PLT) MEAN PLATELET VOLUME (test code 10.90 fL 7.0-10.5 H = MPV) NEUTROPHIL % (test code = NT%) 74.5 % 40-76 N LYMPHOCYTE % (test code = LY%) 12.1 % 20.5-51.1 L MONOCYTE % (test code = MO%) 7.2 % 1.7-9.3 N EOSINOPHIL % (test code = EO%) 5.1 % 0.0-6.0 N BASOPHIL % (test code = BA%) 0.6 % 0.0-2.0 N NUCLEATED RBC % (test code = 0.0 /100WBC% 0.0-1.0 N NRBC%) NEUTROPHIL # (test code = NT#) 5.8 K/mm3 1.8-7.6 N IMMATURE GRANULOCYTE # (test 0.04 x10 3/uL 0.00-0.03 H code = IG#) LYMPHOCYTE # (test code = LY#) 0.9 K/mm3 0.6-3.2 N MONOCYTE # (test code = MO#) 0.6 K/mm3 0.3-1.1 N EOSINOPHIL # (test code = EO#) 0.4 K/mm3 0.0-0.4 N BASOPHIL # (test code = BA#) 0.1 K/mm3 0.0-0.1 N NUCLEATED RBC # (test code = 0.0 K/mm3 0.0-0.1 N NRBC#) MANUAL DIFF REQUIRED (test code NO DIFF/SCN CRITERIA = MDIFF) Coronavirus 2019 nCoV [id number] 00:39:00 Test Item Value Reference Range Interpretation Comments Coronavirus 2019 nCoV Negative NEGATIVE Per ma nufacturer, Bedside (test code = negativ e results should COVNONPUIBED) be treated aspresumptive a nd, if inconsistent wi th clinical signs andsymptoms or necessary for p atient management, cm uld betested with a n alternative mol ecular assay. Negative resultsdo not p reclude SARS-CoV-2 infe ction and should not be usedas the sole basis for patient man agement decisions. Neg ative results should be considered in t he context of apat ient's recent exposure s, history, prese nce of clinicalsigns a nd symptoms consis tent with COVID-19. - XR CHEST 2 [id number] 18:58:00 Name: CARMEN BARNETT [facility]ly [facility] : 1950 Age/S: 70 / F [address] [address] Unit #: [id number] Loc: [place] [address] Phys: Candi Burris MD Acct: [id number] Dis Date: 20200512 Status: DIS IN PHONE #: [phone] Exam Date: 05/10/2020 1840 FAX #: Reason: syncope EXAMS: CPT: [id number] XR CHEST 2 V 65028 Fluoro Time: DAP (Gy m2): Air Kerma (mGy): Location code: H5 Chest 1 view Indication: syncope. Comparison: 05/10/2020 Findings: The heart and mediastinum are not remarkable. Pacemaker device projects over the left heart, leads extending into the left jugular region. Costophrenic angles are clear. Lungs are clear. Bone is unremarkable for age. Impression: 1. No radiographic evidence of acute cardiopulmonary disease. The area of the irregular density projecting over the left chest on prior exam is covered by the elec tronic device on the current exam. at 1858 Reported and signed by: Jose Corona M.D. CC: Candi Burris MD PAGE 1 Signed Report [facility] 1950 Age/S: 70 / F [address] [address] Unit #: [id number] Loc: [place] [address] Phys: Candi Burris MD Acct: [id number] Dis Date: 20200512 Status: DIS IN PHONE #: [phone] Exam Date: 05/10/20201839 FAX #: Reason: syncope EXAMS: CPT: [id number] XR CHEST 2 V 53438 Fluoro Time: DAP (Gy m2): Air Kerma (mGy): <Continued> Technologist: Justino Borjas, RT(R)(CT); ... Trnscb Date/Time: 05/10/2020 (1857) [email or web address] Orig Print D/T: S: 05/10/2020 (1901) PAGE 2 Signed Report- XR CHEST 2 [id number] 18:58:00 Name: CARMEN BARNETT [facility]ly [facility] : 1950 Age/S: 70 / F [address] [address] Unit #: [id number] Loc: [place] [address] Phys: Candi Burris MD Acct: [id number] Dis Date: Status: REG ER PHONE #: [phone] Exam Date: 05/10/20201839 FAX #: Reason: syncope EXAMS: CPT: [id number] XR CHEST 2 V 27940 Fluoro Time: DAP (Gy m2): Air Kerma (mGy): Location code: H5 Chest 1 view Indication: syncope. Comparison: 05/10/2020 Findings: The heart and mediastinum are not remarkable. Pacemaker device projects over the left heart, leads extending into the left jugular region. Costophrenic angles are clear. Lungs are clear. Bone is unremarkable for age. Impression: 1. No radiographic evidence of acute cardiopulmonary disease. The area of the irregular density projecting over the left chest on prior exam is covered by the electronic device on the current exam. at 1858 Reported and signed by: Jose Corona M.D. CC: Candi Burris MD PAGE 1 Signed Report Name: Lizet BARNETT : 1950 Age/S: 70 / F [address] [address] Unit #: [id number] Loc: [place] [address] Phys: Candi Burris MD Acct: [id number] Dis Date: Status: REG ER PHONE #: [phone] Exam Date: 05/10/2020 1840 FAX #: Reason: syncope EXAMS: CPT: [id number] XR CHEST 2 V 13690 Fluoro Time: DAP (Gy m2): Air Kerma (mGy): <Continued> Technologist: Justino Borjas, RT(R)(CT); ... Trnscb Date/Time: 05/10/2020 (1857) [email or web address] Orig Print D/T: S: 05/10/2020 (1901) PAGE 2 Signed [id number] 18:25:00 Test Item Value Reference Range Interpretation Comments TROPONIN-I (test < 0.015 NG/ML 0.000-0.045 N Negative: </= 0.045 code = TROPI) Positive: >/= 0.046 Correlation wit h serial results, other cardiac markers, and cl inical findings is nec essary to determine the c linical significance of this result. Quantit ative results using d ifferent methodologies s hould not be compared to one another as nume rical results may kris yby method. Completed by Nursing: DANO RFLX MICR CULT IF [id number] 18:04:00 Test Item Value Reference Range Interpretation Comments UA COLOR (test code = LIGHT YELLOW YEL/STRAW COLU) discript UA APPEARANCE (test code SLIGHTLY CLOUDY CLEAR = APPU) discript UA GLUCOSE DIPSTICK (test NEGATIVE mg/dL NEG code = DGLUU) UA BILIRUBIN DIPSTICK NEG mg/dL NEG (test code = BILU) UA KETONE DIPSTICK (test NEGATIVE mg/dL NEG code = KETU) UA SPECIFIC GRAVITY (test 1.010 SG 1.005-1.030 code = SGU) UA BLOOD DIPSTICK (test 2+ mg/DL NEG A code = GEORGE) UA PH DIPSTICK (test code 7.5 pH UNITS 5.0-7.0 A = BRYCE) UA PROTEIN DIPSTICK (test NEGATIVE mg/dL NEG code = PROU) UA UROBILINIOGEN DIPSTICK NORMAL mg/dL <2.0 (test code = URO) UA NITRITE DIPSTICK (test NEGATIVE SCREEN NEG code = YAMILKA) UA LEUKOCYTE ESTERASE 2+ Leuk/mcL NEGATIVE A DIPSTICK (test code = LEUU) UA WBC (test code = WBCU) 10-20 #WBC/HPF 0-3 A UA RBC (test code = RBCU) 5-10 #RBC/HPF 0-3 A UA BACTERIA (test code = 1+ /HPF NONE-TRACE A BACU) UA SQUAMOUS CELLS (test TRACE /HPF NONE code = SQU) UA CULTURE NEEDED? (test YES,WBC>10 & EPI<25 Culture CHK code = UACULT) Criteria SOURCE OF URINE: MIDSTREAMIndication for culture: Suprapubic PainBASIC METABOLIC [id number] 17:05:00 Test Item Value Reference Range Interpretation Comments SODIUM (test code = NA) 137 mmol/L 134-147 N POTASSIUM (test code = K) 4.4 mmol/L 3.4-5.0 N CHLORIDE (test code = CL) 106 mmol/L 100-108 N CARBON DIOXIDE (test code = CO2) 24 mmol/L 21-32 N ANION GAP (test code = GAP) 7.0 GAP calc 4.0-15.0 N GLUCOSE (test code = GLU) 154 MG/DL 70-110 H BLOOD UREA NITROGEN (test code = 29 MG/DL 7-18 H BUN) GLOMERULAR FILTRATION RATE (test 32 estGFR >60 L code = GFR) CREATININE (test code = CREAT) 1.7 MG/DL 0.6-1.0 H CALCIUM (test code = CA) 8.8 MG/DL 8.5-10.1 N CBC W/AUTO [id number] 16:54:00 Test Item Value Reference Range Interpretation Comments WHITE BLOOD CELL (test code = 7.4 K/mm3 3.5-11.0 N WBC) RED BLOOD CELL (test code = 4.31 M/mm3 4.70-6.10 L RBC) HEMOGLOBIN (test code = HGB) 12.1 G/DL 10.4-14.9 N HEMATOCRIT (test code = HCT) 37.7 % 31.5-44.1 N MEAN CELL VOLUME (test code = 87.5 Fl 84.5-98.6 N MCV) MEAN CELL HGB (test code = MCH) 28.1 pg 27.0-34.2 N MEAN CELL HGB CONCETRATION 32.1 G/DL 31.5-34.0 N (test code = MCHC) RED CELL DISTRIBUTION WIDTH 13.1 SD 11.5-14.5 N (test code = RDW) PLATELET COUNT (test code = 261 K/mm3 150-450 N PLT) MEAN PLATELET VOLUME (test code 11.10 fL 7.0-10.5 H = MPV) NEUTROPHIL % (test code = NT%) 71.2 % 40-76 N LYMPHOCYTE % (test code = LY%) 15.7 % 20.5-51.1 L MONOCYTE % (test code = MO%) 6.4 % 1.7-9.3 N EOSINOPHIL % (test code = EO%) 5.5 % 0.0-6.0 N BASOPHIL % (test code = BA%) 0.8 % 0.0-2.0 N NUCLEATED RBC % (test code = 0.0 /100WBC% 0.0-1.0 N NRBC%) NEUTROPHIL # (test code = NT#) 5.3 K/mm3 1.8-7.6 N IMMATURE GRANULOCYTE # (test 0.03 x10 3/uL 0.00-0.03 N code = IG#) LYMPHOCYTE # (test code = LY#) 1.2 K/mm3 0.6-3.2 N MONOCYTE # (test code = MO#) 0.5 K/mm3 0.3-1.1 N EOSINOPHIL # (test code = EO#) 0.4 K/mm3 0.0-0.4 N BASOPHIL # (test code = BA#) 0.1 K/mm3 0.0-0.1 N NUCLEATED RBC # (test code = 0.0 K/mm3 0.0-0.1 N NRBC#) MANUAL DIFF REQUIRED (test code NO DIFF/SCN CRITERIA = MDIFF) - XR [id number] 16:35:00 Name: HARI BARNETTRA HOLLOWAY Formerly [facility] : 1950 Age/S: 70 / F [address] [facility] [place] Unit #: [id number] Loc: [place] [address] Phys: Candi Burris MD Acct: [id number] Dis Date: 20200512 Status: DIS IN PHONE #: [phone] Exam Date: 05/10/2020 1620 FAX #: Reason: pelvic pain EXAMS: CPT: [id number] XR PELVIS 64680 Fluoro Time: DAP (Gy m2): Air Kerma (mGy): Location code: H5 Pelvis: Single frontal view Indication: pelvic pain. Comparison: None Findings: No evidence of acute fracture. 3 right hip and lag screws. The sacroiliac joints and pubic symphysis are unremarkable. Hip joints are unremarkable. Visualized aspects of the sacrum are normal in appearance. The lowermost lumbar spine is unremarkable. Soft tissues are normal in appearance. Noabnormal masses or calcifications are seen. Impression: 1. No evidence of acute pathology. at 1635 Reported and signed by: Jose Corona M.D. CC: Candi Burris MD PAGE 1 Signed Report Name: NAA BRIONESCARMEN AMIE [facility]ly [facility] : 1950 Age/S: 70 / F [address] [facility] Unit #: [id number] Loc: [place] [address] Phys: Candi Burris MD Acct: [id number] Dis Date: 20200512 Status: DIS IN PHONE #: [phone] Exam Date: 05/10/2020 1620 FAX #: Reason: pelvic pain EXAMS: CPT: [id number] XR PELVIS 81034 Fluoro Time: DAP (Gy m2): Air Kerma (mGy): <Continued> Technologist: RT Stephen(R)(CT) Trnscb Date/Time: 05/10/2020 (1635) Mary Orig Print D/T: S: 05/10/2020 (1631) PAGE 2 Signed Report- XR [id number] 16:35:00 Name: CARMEN BARNETT [facility]ly [facility] : 1950 Age/S: 70 / F [address] [facility] Unit #: [id number] Loc: [place] [address] Phys: Candi Burris MD Acct: [id number] Dis Date: Status: PRE ER PHONE #: [phone] Exam Date: 05/10/2020 1620 FAX #: Reason: pelvic pain EXAMS: CPT: [id number] XR PELVIS 07073 Fluoro Time: DAP (Gy m2): Air Kerma (mGy): Location code: H5 Pelvis: Single frontal view Indication: pelvic pain. Comparison: None Findings: No evidence of acute fracture. 3 right hip and lag screws. The sacroiliac joints and pubic symphysis are unremarkable. Hip joints are unremarkable. Visualized aspects of the sacrum are normal in appearance. The lowermost lumbar spine is unremarkable. Soft tissues are normal in appearance. Noabnormal masses or calcifications are seen. Impression: 1. No evidence of acute pathology. at 1635 Reported and signed by: Jose Corona M.D. CC: Candi Burris MD PAGE 1 Signed Report Name: CARMEN NARAYANAN [facility]ly [facility] : 1950 Age/S: 70 / F [id number] [place] [address] Unit #: [id number] Loc: [place] [address] Phys: Candi Burris MD Acct: [id number] Dis Date: Status: PRE ER PHONE #: [phone] Exam Date: 05/10/2020 1620 FAX #: Reason: pelvic pain EXAMS: CPT: [id number] XR PELVIS [id number] Fluoro Time: DAP (Gy m2): Air Kerma (mGy): <Continued> Technologist: Dean Cruz RT(R)(CT) Trnscb Date/Time: 05/10/2020 (1635) [email or web address] Orig Print D/T: S: 05/10/2020 (7436) PAGE 2 Signed Report- XR FEMUR MIN 2 VWS [id number] 16:31:00 Name: CARMEN BARNETT [facility] : 1950 Age/S: 70 / F [id number] Unit #: [id number] Loc: [place] [address] Phys: Candi Burris MD Acct: [id number] Dis Date: [id number] Status: DIS IN PHONE #: [phone] Exam Date: 05/10/2020 1624 FAX #: Reason: fall ? syncopal episode EXAMS: CPT: [id number] XR FEMUR MIN [address] [place] [id number] Fluoro Time: DAP (Gy m2): Air Kerma (mGy): EXAMINATION: - XR FEMUR MIN 2 VWS RT. LOCATION: B2. HISTORY: fall ? syncopal episode. COMPARISON: None. TECHNIQUE: AP and lateral views of the right femur were obtained. FINDINGS: There is a remote- appearing fracture of the right femoral neck with sclerosis along the fracture line and evidence of prior internal fixation. There is no evidence of hardware failure or loosening. Soft tissue structures appear intact. IMPRESSION: Remote-appearing fracture of the right femoral neck with sclerosis along the fracture line and evidence of prior internal fixation. at 1631 Reported and signed by: Blue Sinha M.D. CC: Candi Burris MD PAGE 1 Signed Report [facility] [place] : 0 1950 Age/S: 70 / F [address] [facility] Unit #: [id number] Loc: [place] [address] Phys: Candi Burris MD Acct: [id number] Dis Date: 20200512 Status: DIS IN PHONE #: [phone] Exam Date: 05/10/2020 1624 FAX #: Reason: fall ? syncopal episode EXAMS: CPT: [id number] XR FEMUR MIN 2 [place] [address] Fluoro Time: DAP (Gy m2): Air Kerma (mGy): <Continued> Technologist: Dean Cruz RT(R)(CT) Trnscb Date/Time: 05/10/2020 (1631) [email or web address] Orig Print D/T: S: 05/10/2020 (1634) PAGE 2 Signed Report- XR FEMUR MIN 2 VWS [id number] 16:31:00 Name: CARMEN BARNETT [place] : 1950 Age/S: 70 / F [address] [facility] Unit #: [id number] Loc: [place] [address] Phys: Candi Burris MD Acct: [id number] Dis Date: Status: PRE ER PHONE #: [phone] Exam Date: 05/10/2020 1622 FAX #: Reason: fall ? syncopal episode EXAMS: CPT: [id number] XR FEMUR MIN [address] [place] [address] Fluoro Time: DAP (Gy m2): Air Kerma (mGy): EXAMINATION: - XR FEMUR MIN 2 VWS RT. LOCATION: B2. HISTORY: fall ? syncopal episode. COMPARISON: None. TECHNIQUE: AP and lateral views of the right femur were obtained. FINDINGS: There is a remote-appearing fracture of the right femoral neck with sclerosis along the fracture line and evidence of prior internal fixation. There is no evidence of hardware failure or loosening. Soft tissue structures appear intact. IMPRESSION: Remote-appearing fracture of the right femoral neck with sclerosis along the fracture line and evidence of prior internal fixation. at 1631 Reported and signed by: Blue Sinha M.D. CC: Candi Burris MD PAGE 1 Signed Report Name: CARMEN BARNETT [place] : 1950 Age/S: 70 / F [id number] [place] [address] Unit #: [id number] Loc: [place] [address] Phys: Candi Burris MD Acct: [id number] Dis Date: Status: PRE ER PHONE #: [phone] Exam Date: 05/10/2020 162 FAX #: Reason: fall ? syncopal episode EXAMS: CPT: [id number] XR FEMUR MIN [address] [place] [address] Fluoro Time: DAP (Gy m2): Air Kerma (mGy): <Continued> Technologist: Dean Cruz RT(R)(CT) Trnscb Date/Time: 05/10/2020 (1631) [email or web address] Orig Print D/T: S: 05/10/2020 (1338) PAGE 2 Signed Report- XR CHEST 1 [id number] 16:30:00 Name: CARMEN BARNETT [place] : 1950 Age/S: 70 / F [address] [facility] Unit #: [id number] Loc: [place] [address] Phys: Candi Burris MD Acct: [id number] Dis Date: 20200512 Status: DIS IN PHONE #: [phone] Exam Date: 05/10/20205 FAX #: Reason: chest pain EXAMS: CPT: [id number] XR CHEST 1 V 90446 Fluoro Time: DAP (Gy m2): Air Kerma (mGy): Location code: H5 Chest 1 view Indication: chest pain. Comparison: None Findings: Cardiomegaly. Pacing device projects over the left chest. Leads extend into the left neck. Costophrenic angles are clear. No evidence of pulmonary infiltrate. Limited inspiration. Symmetrical biapical pleural thickening. Irregular density projects over the left retrocardiac region and measures approximately 33 x 23 mm. Bone is unremarkable for age. Impression: 1. Cardiomegaly. Pacemaker. 2. Irregular 33 x 23 mm left retrocardiac density may lie within the heart, pericardium, pleura, or lung. Consider lateral view to evaluate further. at 1630 Reported and signed by: Jose Corona M.D. CC: El Burris MD PAGE 1 Signed Report Name: CARMEN BARNETT [place] : 1950ge/S: 70 / F [address] [facility] Unit #: [id number] Loc: [place] [address] Phys: Candi Burris MD Acct: [id number] Dis Date: 20200512 Status: DIS IN PHONE#: [phone] Exam Date: 05/10/2020 1615 FAX #: Reason: chest pain EXAMS: CPT: [id number] XR CHEST 1 V 95089 Fluoro Time: DAP (Gy m2): Air Kerma (mGy): <Continued> Technologist: Dean Cruz RT(R)(CT) Trnscb Date/Time: 05/10/2020 (1630) [email or web address] Orig Print D/T: S: 05/10/2020 (7393) PAGE 2 Signed Report- XR CHEST 1 [id number] 16:30:00 [facility] [place] : 1950 Age/S: 70 / F [address] [address] [facility] Unit #: [id number] Loc: [place] [address] Phys: Candi Burris MD Acct: [id number] Dis Date: Status: PRE ER PHONE #: [phone] Exam Date: 05/10/2020 1613 FAX #: Reason: chest pain EXAMS: CPT: [id number] XR CHEST 1 V 57595 Fluoro Time: DAP (Gy m2): Air Kerma (mGy): Location code: H5 Chest 1 view Indication: chest pain. Comparison: None Findings: Cardiomegaly. Pacing device projects over the left chest. Leads extend into the left neck. Costophrenic angles are clear. No evidence of pulmonary infiltrate. Limited inspiration. Symmetrical biapical pleural thickening. Irregular density projects over the left retrocardiac region and measures approximately 33 x 23 mm. Bone is unremarkable for age. Impression: 1. Cardiomegaly. Pacemaker. 2. Irregular 33 x 23 mm left retrocardiac density may lie within the heart, pericardium, pleura, or lung. Consider lateral view to evaluate further. at 1630 Reported and signed by: Jose Corona M.D. CC: El Burris MD PAGE 1 Signed Report Name: CARMEN BARNETT [place] : 1950ge/S: 70 / F [address] [address] [facility] Unit #: [id number] Loc: [place] [address] Phys: Candi Burris MD Acct: [id number] Dis Date: Status: PRE ER PHONE#: [phone] Exam Date: 05/10/2020 1615 FAX #: Reason: chest pain EXAMS: CPT: [id number] XR CHEST 1 V 92686 Fluoro Time: DAP (Gy m2): Air Kerma (mGy): <Continued> Technologist: Dean Cruz RT(R)(CT) Trnscb Date/Time: 05/10/2020 (1629) [email or web address] Orig Print D/T: S: 05/10/2020 (4822) PAGE 2 Signed Report- CT HEAD/BRAIN W/O [id number] 16:14:00 Name: CARMEN BARNETT : 1950 Age/S: 70 / F [address] [address] [facility] Unit #: [id number] Loc: [place] [address] Phys: Candi Burris MD Acct: [id number] Dis Date: 05/12/2020 Status: DIS IN PHONE #: [phone] Exam Date: 05/10/2020 1605 FAX #: Reason: headache EXAMS: CPT: [id number] CT HEAD/BRAIN W/O CONT 78896 EXAM: - CTHEAD/BRAIN W/O CONT Location code:C3 HISTORY: 70 years -old Female with headache TECHNIQUE: Axial CT images from the skull base to the vertex without intr avenous contrast. Coronal and sagittal reformatted images were created from the data set. One or more of the following dose reduction techniques were used: Automated exposurecontrol, adjustment of the mA and/or kV according to patient size, and/or utilization of iterative reconstruction technique. COMPARISON: 10/08/2012 FINDINGS: Intracranial: Bifrontal approach neurostimulator devices have been placed since prior study. No evidence of acute infarction, intracranial hemorrhage, mass or mass effect, or abnormal extra-axial fluid collection. The ventricular system and sulci are prominent compatible cerebral volume loss. There is mild diminished attenuation involving the periventricular and subcortical white matter compatible with mild microvascular chronic ischemic changes. The density in the larger dural sinuses is grossly normal. Vascular calcifications are noted. Bones: There is no evidence of acute displaced calvarial fracture. Sinuses: The visualized portions of the paranasal sinuses demonstrate no significant opacification.The mastoid air cells are clear. Orbits/Soft Tissues: The visualized orbits show no significant abnormalities. The visualized soft tissues are unremarkable. IMPRESSION: 1. Bifrontal approach stimulator devices are noted. No intracranial hemorrhage or other acute intracranial abnormality. PAGE 1 Signed Report (CONTINUED) Name: CARMEN BARNETT [place] : 1950 Age/S: 70 / F [address] [address] [facility] Unit #: [id number] Loc: [place] [address] Phys: Candi Burris MD Acct: [id number] Dis Date: 05/12/2020 Status: DIS IN PHONE #: [phone] Exam Date: 05/10/2020 1602 FAX #: Reason: headache EXAMS: CPT: [id number] CT HEAD/BRAIN W/O CONT 78782 <Continued> at 1614 Reported and signed by: Dhaval Hernandez M.D. CC: Candi Burris MD Technologist:Dean Cruz, RT(R)(CT); ... CTDI: DLP: Trnscb Date/Time: 05/10/2020 (1614) [email or web address] Orig Print D/T: S: 05/10/2020 (1617) PAGE2 Signed Report- CT HEAD/BRAIN W/O [id number] 16:14:00 Name: CARMEN BARNETT [facility] : 1950 Age/S: 70 / F [address] [address] Unit #: [id number] Loc: [place] [address] Phys: Candi Burris MD Acct: [id number] Dis Date: Status: PRE ER PHONE #: [phone] Exam Date: 05/10/2020 1607 FAX #: Reason: headache EXAMS: CPT: [id number] CT HEAD/BRAIN W/O CONT 03044 EXAM: - CTHEAD/BRAIN W/O CONT Location code:C3 HISTORY: 70 years -old Female with headache TECHNIQUE: Axial CT images from the skull base to the vertex without intravenous contrast. Coronal and sagittal reformatted images were created from the data set. One or more of the following dose reduction techniques were used: Automated exposurecontrol, adjustment of the mA and/or kV according to patient size, and/or utilization of iterative reconstruction technique. COMPARISON: 10/08/2012 FINDINGS: Intracranial: Bifrontal approach neurostimulator devices have been placed since prior study. No evidence of acute infarction, intracranial hemorrhage, mass or mass effect, or abnormal extra-axial fluid collection. The ventricular system and sulci are prominent compatible cerebral volume loss. There is mild diminished attenuation involving the periventricular and subcortical white matter compatible with mild microvascular chronic ischemic changes. The density in the larger dural sinuses is grossly normal. Vascular calcifications are noted. Bones: There is no evidence of acute displaced calvarial fracture. Sinuses: The visualized portions of the paranasal sinuses demonstrate no significant opacification.The mastoid air cells are clear. Orbits/Soft Tissues: The visualized orbits show no significant abnormalities. The visualized soft tissues are unremarkable. IMPRESSION: 1. Bifrontal approach stimulator devices are noted. No intracranial hemorrhage or other acute intracranial abnormality. PAGE 1 Signed Report (CONTINUED) Name: CARMEN BARNETT [facility] : 1950 Age/S: 70 / F [address] [address] Unit #: [id number] Loc: [place] [address] Phys: Candi Burris MD Acct: [id number] Dis Date: Status: PRE ER PHONE #: [phone] Exam Date: 05/10/2020 1604 FAX #: Reason: headache EXAMS: CPT: [id number] CT HEAD/BRAIN W/O CONT 09077 <Continued> at 1614 Reported and signed by: Dhaval Hernandez M.D. CC: Candi Burris MD Technologist:RT Stephen(R)(CT); ... CTDI: DLP: Trnscb Date/Time: 05/10/2020 (1614) [email or web address] Orig Print D/T: S: 05/10/2020 (5167) PAGE2 Signed ReportBASIC METABOLIC [id number] 13:48:00 Test Item Value Reference Range Interpretation Comments SODIUM (test code = NA) 141 mmol/L 134-147 N POTASSIUM (test code = K) 4.4 mmol/L 3.4-5.0 N CHLORIDE (test code = CL) 106 mmol/L 100-108 N CARBON DIOXIDE (test code = CO2) 28 mmol/L 21-32 N ANION GAP (test code = GAP) 7.0 GAP calc 4.0-15.0 N GLUCOSE (test code = GLU) 96 MG/DL 70-110 N BLOOD UREA NITROGEN (test code = 29 MG/DL 7-18 H BUN) GLOMERULAR FILTRATION RATE (test 32 estGFR >60 L code = GFR) CREATININE (test code = CREAT) 1.7 MG/DL 0.6-1.0 H CALCIUM (test code = CA) 8.8 MG/DL 8.5-10.1 N [id number] 13:48:00 Test Item Value Reference Range Interpretation Comments MAGNESIUM (test code = MAG) 1.8 MG/DL 1.8-2.4 N CBC W/AUTO [id number] 13:33:00 Test Item Value Reference Range Interpretation Comments WHITE BLOOD CELL (test code = 7.7 K/mm3 3.5-11.0 N WBC) RED BLOOD CELL (test code = 4.23 M/mm3 4.70-6.10 L RBC) HEMOGLOBIN (test code = HGB) 11.8 G/DL 10.4-14.9 N HEMATOCRIT (test code = HCT) 38.6 % 31.5-44.1 N MEAN CELL VOLUME (test code = 91.3 Fl 84.5-98.6 N MCV) MEAN CELL HGB (test code = MCH) 27.9 pg 27.0-34.2 N MEAN CELL HGB CONCETRATION 30.6 G/DL 31.5-34.0 L (test code = MCHC) RED CELL DISTRIBUTION WIDTH 13.2 SD 11.5-14.5 N (test code = RDW) PLATELET COUNT (test code = 240 K/mm3 150-450 N PLT) MEAN PLATELET VOLUME (test code 11.70 fL 7.0-10.5 H = MPV) NEUTROPHIL % (test code = NT%) 74.2 % 40-76 N LYMPHOCYTE % (test code = LY%) 13.1 % 20.5-51.1 L MONOCYTE % (test code = MO%) 7.3 % 1.7-9.3 N EOSINOPHIL % (test code = EO%) 4.3 % 0.0-6.0 N BASOPHIL % (test code = BA%) 0.7 % 0.0-2.0 N NUCLEATED RBC % (test code = 0.0 /100WBC% 0.0-1.0 N NRBC%) NEUTROPHIL # (test code = NT#) 5.7 K/mm3 1.8-7.6 N IMMATURE GRANULOCYTE # (test 0.03 x10 3/uL 0.00-0.03 N code = IG#) LYMPHOCYTE # (test code = LY#) 1.0 K/mm3 0.6-3.2 N MONOCYTE # (test code = MO#) 0.6 K/mm3 0.3-1.1 N EOSINOPHIL # (test code = EO#) 0.3 K/mm3 0.0-0.4 N BASOPHIL # (test code = BA#) 0.1 K/mm3 0.0-0.1 N NUCLEATED RBC # (test code = 0.0 K/mm3 0.0-0.1 N NRBC#) MANUAL DIFF REQUIRED (test code NO DIFF/SCN CRITERIA = MDIFF) Sed Rate ESR ([place])2017-09-03 02:32:00 Test Item Value Reference Range Interpretation Comments ESR (test code = HESR) 24 mm/Hr 0-20 H Thyroid Stimulating Hormone (TSH)2017-09-02 23:41:00 Test Item Value Reference Range Interpretation Comments TSH (test code = TSH) 3.68 mIU/mL 0.270-4.200 N Thyroxine (T4)2017-09-02 23:41:00 Test Item Value Reference Range Interpretation Comments T4, Total (test code = TT4) 7.3 ug/dL 4.6-12.0 N Lipid [id number] 23:34:00 Test Item Value Reference Range Interpretation Comments Cholesterol (test 172 mg/dL 0-200 N code = CHOL) Triglycerides (test 129 mg/dL 9-200 N code = TRIG) HDL (test code = 39 mg/dL 50-60 L HDL) Chol/HDL (test code 4.4 Ratio 0.0-4.4 N = CHOLPHDL) LDL, Calculated 107 0-130 N (NOTE)RISK O F HEART (test code = LDLC) DISEASEPu blished by [place] Heart AssociationAnal yte Optim al Boderline Increased RiskC HOL <200 200-239 >240TRI G <150 150-199 >200HDL Male: >60 <40HDL Female: >60 <50 LDL < 100 130-15 9 >160 LDL NEAR OPTIMAL IS 100- 129 VLDL (test code = 26 mg/dL 5-40 N VLDL) LDL/HDL (test code = 3 LDLPHDL) Comprehensive Metabolic [id number] 23:34:00 Test Item Value Reference Range Interpretation Comments Sodium (test code = 138 mmol/L 135-145 N NA) Potassium (test 4.1 mmol/L 3.5-5.1 N code = K) Chloride (test code 99 mmol/L 98-105 N = CL) Carbon Dioxide 28 mmol/L 22-29 N (test code = CO2) Glucose (test code 135 mg/dL 70-115 H = GLU) Blood Urea Nitrogen 38 mg/dL 8-23 H (test code = BUN) Creatinine (test 1.5 mg/dL 0.5-0.9 H code = CREAT) Calcium (test code 9.7 mg/dL 8.3-10.5 N = CA) Prot Total (test 6.4 g/dL 6.4-8.3 N code = TP) Albumin (test code 3.9 g/dL 3.5-5.2 N = ALB) A/G Ratio (test 1.6 Ratio code = AGRATIO) Globulin (test code 2.5 2.9-3.1 L = GLOB) Bili Total (test 0.3 mg/dL 0.1-0.9 N code = TBIL) Alk Phos (test code 92 U/L 35-104 N = APHOS) AST (test code = 24 U/L 1-32 N AST) ALT (test code = 21 U/L 1-33 N ALT) BUN/Creatinine 25.3 Ratio (test code = BCRATIO) Anion Gap (test 11 mmol/L 7-16 N code = AGAP) Estimated GFR (test 37 eGFR (es timated code = GFR) mL/min/1.73m2 Glomerular Dimas tration Rate) is an est imated value,calculate d from the patient's s puneet creatinine usin g the MDRD equation.I t is NOT the patient 's actual GFR. The eGFR provides a more clinicallyusefu l measure of kidn ey disease than se rum creatinine alone.This calculation rashel es sex and race into account, if the informationis provided. If th e race is not provided , and the patient isAfrican-Ameri can, multiply by 1.2 12. If sex is not prov ided, and thepatient is female, multipl y by 0.742. Results for patients <18 ye ars ofage have not been validated by th e MDRD study and gin d be interpretedwith caution.eGFR Re sult Interpretation: eGFR > or = 60 is in t he Normal RangeeGF R < 60 may mean kidney diseaseeGFR < 1 5 may mean kidney failureRange s recommended by the National Kidney Foundation,http ://nkd ep.nih.gov T3 [id number] 23:06:00 Test Item Value Reference Range Interpretation Comments T3, Uptake (test code = T3U) 34 % 28-41 N CBC with [id number] 22:32:00 Test Item Value Reference Range Interpretation Comments WBC (test code = WBC) 8.5 K/cumm 4.4-10.5 N RBC (test code = RBC) 4.32 M/cumm 3.75-5.20 N Hemoglobin (test code = HGB) 12.7 gm/dL 12.2-14.8 N Hematocrit (test code = HCT) 40.0 % 36.5-44.4 N MCV (test code = MCV) 92.6 fL 80-100 N MCH (test code = MCH) 29.3 pg 27.0-32.5 N MCHC (test code = MCHC) 31.7 g/dL 32.0-37.5 L RDW (test code = RDW) 13.4 % 11.5-14.5 N Platelet Count (test code = 221 K/cumm 140-440 N PLTCT) MPV (test code = MPV) 9.8 fL Diff Method (test code = DIFFM) Auto Neutrophil (test code = NEUT) 74.7 % 36-70 H Lymphocyte (test code = LYMPH) 16.0 % 12-44 N Monocyte (test code = MONO) 5.5 % 0-11 N Eosinophil (test code = EOS) 3.2 % 0-7 N Basophil (test code = BASO) 0.6 % 0-2 N Neutro Abs (test code = ANEUT) 6.3 K/cumm 1.6-7.4 N Lymph Abs (test code = ALYMPH) 1.4 K/cumm 0.5-4.6 N Jenkins Abs (test code = AMONO) 0.5 K/cumm 0.0-1.2 N Eos Abs (test code = AEOS) 0.27 K/cumm 0.00-0.74 N Baso Abs (test code = ABASO) 0.1 K/cumm 0.00-0.21 N - CT HEAD/BRAIN W/O [id number] 10:07:00 FAX: Agusto Hurst MD [place]: St: [facility] Name: CARMEN BARNETT [facility] : 1950 Age/S: 62/F [address] [facility] Unit: [id number] Loc: [place], [place]: [place] [address] Acct: [id number] Dis Date: Status: [facility] PHONE #: [phone] Exam Date: 10/08/20121958 FAX #: [phone] Reason: seizure EXAMS: CPT CODE: [id number] CT HEAD/BRAIN W/O CONT 53694 CT HEAD WITHOUT CONTRAST. HISTORY: seizure COMPARISON: No comparison is available. FINDINGS: No intracranial abnormalities such as hemorrhage, mass, mass effect, hydrocephalus, midline shift, extra-axial fluid collection or secondary signs of an acute infarct are noted. Atherosclerotic calcifications affect the carotid siphons. The calvarium and skull base are intact. The paranasal sinus and mastoid air cells are clear. IMPRESSION: No evidence of acute intracranial abnormality. at 1007 Reported and signed by: Dave Charlton M.D. CC: Agusto Hurst MD Technologist: DAO GALINDO Trnscrd Dt/Tm: 10/09/2012 (1007) [email or web address] Orig Print D/T: S: 10/09/2012 (1010 PAGE 1 Signed Report
--- OUTSIDE RECORDS SUMMARY | 2020-07-07 20:06 | XMS REPORT | Summary of Care ---
:1950 Author Organization [facility] Address [address] [place] [address] Care Team Providers Name Role Phone Pcp, Does Not Have A Primary Care Provider Reason for Visit Reason Comments Results Encounter Details Date Type Department Care Team Description 04/09/2020 Telephone [facility] Urology- Deloris Cooper STUDIO ASSISTANT Results [place] [address] [facility] [address] [place] [address] [place] [address] [phone] Allergies No Known Allergiesdocumented as of this [...] Team Description 04/11/2020 Nurse Visit Urology Nurse, [facility] Surgery Gu Health Maintenance Due Date Last Done Comments [...] Results Not on filedocumented in this encounter Insurance Payer Benefit Plan / Subscriber ID Effective Dates Phone Addre ss Type Group MEDICARE MEDICARE PART xxxxxxxxxxx 2017-[place] [phone] Medicare A & B t 2 [id number] [place] [id number] [place] MEDICAID OF xxxxxxxxx 2018-Prese [phone] [address] Medicaid [place] nt 0 [id number] [place] [address] documented as of this encounter
--- OUTSIDE RECORDS SUMMARY | 2020-07-07 20:06 | XMS REPORT | Summary of Care ---
:1950 Author Organization [facility] - Health Address [address] [place] [address] Care Team Providers Name Role Phone Pcp, Does Not Have A Primary Care Provider Encounter Details Date Type Department Care Team Description 04/09/2020 Orders Only [facility] Doctor Unassigned, No [address] [facility] [address] [address] [place] [address] Allergies No Known Allergiesdocumented as of this [...] Team Description 04/11/2020 Nurse Visit Urology Nurse, [facility] Surgery Gu Health Maintenance Due Date Last Done Comments HEPATITIS C (HCV) SCREEN 1950 DTaP,Tdap,and Td Vaccines (1 - Tdap) 1963 Breast Cancer Screening (MAMMOGRAM) 1992 COLONOSCOPY 2002 Zoster Recombinant Vaccine (SHINGRIX) (1 of 2) 2002 Medicare Wellness Visit 2017 Osteoporosis Screening 2017 PNEUMOCOCCAL VACCINES 65+ (1 of 2 - PCV13) 2017 INFLUENZA VACCINE (Season Ended) 2020 07/16/2017 documented as of this encounter Procedures Procedure Name Priority Date/Time Associated Diagnosis 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 Medicare A & B t 2 [id number] [place] [id number] [place] MEDICAID OF xxxxxxxxx 2018-[place] [phone] [address] Medicaid [place] nt 0 [id number] [place] [address] documented as of this encounter
--- OUTSIDE RECORDS SUMMARY | 2020-07-07 20:06 | XMS REPORT | Summary of Care ---
:1950 Author Organization [facility] Address [address] [place] [address] Care Team Providers Name Role Phone Pcp, Does Not Have A Primary Care Provider Reason for Visit Reason Comments Results Encounter Details Date Type Department Care Team Description 04/09/2020 Telephone [facility] Urology- Deloris Cooper NAVAL AIRCREWMAN MECHANICAL Results [place] [address] [facility] [address] [place] [address] [place] [address] [phone] Allergies No Known Allergiesdocumented as of this [...] Team Description 04/11/2020 Nurse Visit Urology Nurse, [facility] Surgery Gu Health Maintenance Due Date Last [...] BOX Medicare A & B t 2 [id number] [place] [id number] [place] MEDICAID OF xxxxxxxxx 2018-Prese [phone] [address] Medicaid [place] nt 0 [id number] [place] [address] documented as of this encounter
--- OUTSIDE RECORDS SUMMARY | 2020-07-07 20:07 | XMS REPORT | Summary of Care ---
:1950 [address] [facility] - Health Address [address] [place] [address] Care Team Providers Name Role Phone Pcp, Does Not Have A Primary Care Provider Encounter Details Date Type Department Care Team Description 06/06/[address] [facility] Doctor Unassigned, No [address] [facility] [place] [address] [address] [place] [address] Allergies No Known Allergiesdocumented as of this encounter (statuses as of 06/12/2020) Medications Medication Sig Dispensed Refills Start Date [...] as of this encounter (statuses as of 06/12/2020) Active Problems No known active problemsdocumented as of this encounter (statuses as of 06/12/2020) Social History Tobacco Use Types Packs/Day Years [...] Travel End No recent travel history available. documented as of this encounter Last Filed Vital Signs Not on filedocumented in this encounter Plan of Treatment Health Maintenance Due Date Last Done Comments HEPATITIS C (HCV) SCREEN 1950 DTaP,Tdap,and Td Vaccines (1 - Tdap) 1963 Breast Cancer Screening (MAMMOGRAM) 1992 COLONOSCOPY 2002 Zoster Recombinant Vaccine (SHINGRIX) (1 of 2) 2002 Medicare Wellness Visit 2017 Osteoporosis Screening 2017 PNEUMOCOCCAL VACCINES 65+ (1 of 2 - PCV13) 2017 INFLUENZA VACCINE (#1) 2020 07/16/2017 Depression Screening 04/05/2021 04/05/2020 documented as of this encounter Procedures Procedure Name Priority Date/Time Associated Diagnosis Comme nts HOME HEALTH - OTHER Routine 06/06/2020 12:01 AM CDT documented in this encounter Results Not on filedocumented in this encounter Insurance Payer Benefit Plan / Subscriber ID Effective Dates Phone Addre ss Type Group MEDICARE MEDICARE PART xxxxxxxxxxx 2017-Kennedi [phone] [address] Medicare A & B t 2 [id number] [place] [id number] [facility] MEDICAID OF xxxxxxxxx 2018-Prese [phone] [address] Medicaid [place] nt 0 [id number] [place] [address] documented as of this encounter
--- OUTSIDE RECORDS SUMMARY | 2020-07-07 20:07 | XMS REPORT | Summary of Care ---
:1950 Author Organization [facility] Address [address] [place] [address] Care Team Providers Name Role Phone Pcp, Does Not Have A Primary Care Provider Reason for Visit Reason Comments Rx Concern/Question Encounter Details Date Type Department Care Team Description 04/22/2020 Telephone [facility] Urology- Dorina Harper MD Rx Concern/Question [address] [place] [address] [address] [address] [place], [place] [phone] [address] [phone] Allergies No Known Allergiesdocumented as of this encounter (statuses as of 04/22/2020) Medications Medication Sig Dispensed Refills Start Date [...] as of this encounter (statuses as of 04/22/2020) Active Problems No known active problemsdocumented as of this encounter (statuses as of 04/22/2020) Social History Tobacco Use Types Packs/Day Years [...] been in contact with No / Unsure 04/09/2020 3:39 PM CDT someone who was confirmed or [...] 2017 INFLUENZA VACCINE (Season Ended) 2020 07/16/2017 Depression Screening 04/05/2021 04/05/2020 documented as of this encounter Results Not on filedocumented in this encounter Insurance Payer Benefit Plan / Subscriber ID Effective Dates Phone Addre ss Type Group MEDICARE MEDICARE PART xxxxxxxxxxx 2017-[place] [phone] [address] Medicare A & B t 2 [id number] [place] [id number] [facility] MEDICAID OF xxxxxxxxx 2018-[place] [phone] [address] Medicaid [place] 0 [id number] [place] [address] documented as of this encounter
--- OUTSIDE RECORDS SUMMARY | 2020-07-07 20:07 | XMS REPORT | Summary of Care ---
:1950 Author Organization [facility] Address [address] [place] [address] Care Team Providers Name Role Phone Pcp, Does Not Have A Primary Care Provider Reason for Visit Reason Comments NURSE VISIT cath collection Encounter Details Date Type Department Care Team Description 04/11/2020 Nurse Visit [facility] Urology- Dorina Harper MD [address] [place] [address]. [place] [address] Recurrent UTI (Primary Dx); [place] Nurse, [facility] Incomplete bladder emptying [address] [facility] [address] [place] [address] Allergies No Known Allergiesdocumented as of this encounter (statuses as of 04/19/2020) Medications Medication Sig Dispensed Refills Start Date [...] as of this encounter (statuses as of 04/19/2020) Active Problems No known active problemsdocumented as of this encounter (statuses as of 04/19/2020) Social History Tobacco Use Types Packs/Day Years [...] of this encounter Last Filed Vital Signs Vital Sign Reading Time Taken Comments Blood Pressure 108/69 04/11/2020 11:00 AM CDT Pulse 88 04/11/2020 11:00 AM CDT Temperature 36.2 C (97.1 F) 04/11/2020 11:00 AM CDT Respiratory Rate 18 04/11/2020 11:00 AM CDT Oxygen Saturation - - Inhaled Oxygen Concentration - - Weight 59.6 kg (131 lb 6.4 oz) 04/11/2020 11:00 AM CDT Height - - Body Mass Index 21.21 04/05/2020 3:04 PM CDT documented in this encounter Progress Notes Mary Cazares RN - 04/11/2020 11:15 AM CDTScaleb Mcdermott is a 69 year old female comes to clinic with assistive device; cane for cath col lection. Pt comes alone . Pt in NAD w/ pain reported 0/10. Pt preferred language is Maltese. Pt. denies fall in last 12 months. Allergies and medications reviewed and updated. documented in this encounter Plan of Treatment Health [...] Name Priority Date/Time Associated Diagnosis Comme nts URINE CULTURE Routine 04/11/2020 11:46 AM Results for this CDT procedure are i n the results section . documented in this encounter Results URINE CULTURE (04/11/2020 11:46 AM CDT) URINE CULTURE >100,000 CFU/mL [facility] Pseudomonas SERVICES aeruginosa Specimen Urine - URINE, CLEAN CATCH Organism Antibiotic Method Susceptibility Pseudomonas Ceftazidime SUSCEPTIBILITY TESTING 4: Suscep tible aeruginosa Pseudomonas Ciprofloxacin SUSCEPTIBILITY TESTING <=0.25: S usceptible aeruginosa Pseudomonas Levofloxacin SUSCEPTIBILITY TESTING <=0.12: S usceptible aeruginosa Pseudomonas Piperacillin/Tazobacta SUSCEPTIBILITY TESTING 16 : Susceptible aeruginosa m Pseudomonas Tobramycin SUSCEPTIBILITY TESTING <=1: Susc eptible aeruginosa Performing Organization Address City/State/Zipcode Phone Number [facility] CLIA: [id number], [address] [place] [address] [address] [facility] documented in this encounter Visit Diagnoses Diagnosis Recurrent UTI - Primary Urinary tract infection, site not specif ied Incomplete bladder emptying documented in this encounter Insurance Payer Benefit Plan / Subscriber ID Effective Dates Phone Addre ss Type Group MEDICARE MEDICARE PART xxxxxxxxxxx 2017-Kennedi [phone] [address] Medicare A & B t 2 [id number] [place] [id number] [facility] MEDICAID OF xxxxxxxxx 2018-Gunnar [phone] [address] Medicaid [facility] 0 [id number] [place] [address] (Work) documented as of this encounter
--- OUTSIDE RECORDS SUMMARY | 2020-07-07 20:07 | XMS REPORT | Summary of Care ---
:1950 Author Organization [facility] Address [address] [place] [address] Care Team Providers Name Role Phone Pcp, Does Not Have A Primary Care Provider Reason for Visit Reason Comments Notification Michelle from [employer] is requesting the weight bearing status and orders for the patient Encounter Details Date Type Department Care Team Description 04/10/2020 Telephone [facility] Orthopaedic En Mckeon otification (Michelle Surgery- Rosa Solorzano MD from [employer] [address] Reba valverde is requesting the weight [address] [place] [address] [place], [place] orders for the patient) [phone] Allergies No Known Allergiesdocumented as of this encounter (statuses as of 04/12/2020) Medications Medication Sig Dispensed Refills Start Date [...] as of this encounter (statuses as of 04/12/2020) Active Problems No known active problemsdocumented as of this encounter (statuses as of 04/12/2020) Social History Tobacco Use Types Packs/Day Years [...] BOX Medicare A & B t 2 [id number] [place] [phone] [facility] MEDICAID OF xxxxxxxxx 2018-[place] [phone] [address] Medicaid [place] 0 [id number] [place] [address] documented as of this encounter
--- OUTSIDE RECORDS SUMMARY | 2020-07-07 20:07 | XMS REPORT | Summary of Care ---
:1950 Author Organization [facility] Address [address] [place] [address] Care Team Providers Name Role Phone Pcp, Does Not Have A Primary Care Provider Reason for Referral Radiology Services (Routine) Status Reason Specialty Diagnoses / Referred By Referred To Procedures Contact Contact New Request Diagnostic Diagnoses Pain En Mckeon Radiology Procedures XR HIP 1 VW BILATERAL MD Rashad [address] [place] [address] Reason for Visit Reason Comments Follow-up s/p S/P IM Nail to the Right Femur on 01/17/20 Encounter Details Date Type Department Care Team Description 03/25/2020 Office Visit [facility] Orthopaedic En Mckeon L , Pain (Primary Dx) Surgery- Rosa GUZMÁN [address] [facility] [address] [place] [address] [place], [place] [phone] [address] Allergies No Known Allergiesdocumented as of this encounter (statuses as of 04/26/2020) Medications Medication Sig Dispensed Refills Start Date End Date Status aspirin 81 mg EC Take 81 mg 0 Ac tive tablet by mouth. gabapentin 100 mg Take 100 0 Ac tive capsule mg by mouth. levETIRAcetam 750 0 12/08/2019 A ctive mg tablet levothyroxine 25 Take 25 0 Act jelena mcg tablet mcg by mouth. Magnesium Oxide 250 Take 250 0 Active mg magnesium Tab mg by mouth. Nitrofurantoin&Nit. 0 12/28/2019 Active Macrocryst 100 mg capsule omeprazole 40 mg Take 40 mg 0 Ac tive capsule by mouth. primidone 50 mg Take 50 mg 0 Act jelena tablet by mouth. SERTraline 50 mg Take 50 mg 0 Ac tive tablet by mouth. simvastatin 5 mg Take 5 mg 0 Act jelena tablet by mouth. topiramate 50 mg 0 12/08/2019 Ac tive tablet traMADol 50 mg 0 12/02/2019 Acti ve tablet cephALEXin 500 mg 0 12/28/2019 04/05/2020 Discontinued capsule (Alternate therapy) documented as of this encounter (statuses as of 04/26/2020) Active Problems No known active problemsdocumented as of this encounter (statuses as of 04/26/2020) Social History Tobacco Use Types Packs/Day Years [...] Sign Reading Time Taken Comments Blood Pressure 97/65 03/25/2020 2:15 PM CDT Pulse 91 03/25/2020 2:15 PM CDT Temperature - - Respiratory Rate - - Oxygen Saturation - - Inhaled Oxygen Concentration - - Weight 59 kg (130 lb) 03/25/2020 2:15 PM CDT Height 172.7 cm (5' 8") 03/25/2020 2:15 PM CDT Body Mass Index 19.77 03/25/2020 2:15 PM CDT documented in this encounter Progress Notes En Mckeon MD - 03/25/2020 2:00 PM CDT Cc: Chief Complaint Patient presents with Follow-up s/p S/P IM Nail to the Right Femur on 01/17/20 Kailey Mcdermott is a 69 year old female. S/P IM Nail to the Right Femur Allergies Kailey has No Known Allergies. Medications Outpatient Medications Prior to Visit Medication Sig Dispense Refill aspirin 81 mg EC tablet Take 81 mg by mouth. cephALEXin 500 mg capsule gabapentin 100 mg capsule Take 100 mg by mouth. levETIRAcetam 750 mg tablet levothyroxine 25 mcg tablet Take 25 mcg by mouth. Magnesium Oxide 250 mg magnesium Tab Take 250 mg by mouth. Nitrofurantoin&Nit. Macrocryst 100 mg capsule omeprazole 40 mg capsule Take 40 mg by mouth. primidone 50 mg tablet Take 50 mg by mouth. SERTraline 50 mg tablet Take 50 mg by mouth. simvastatin 5 mg tablet Take 5 mg by mouth. topiramate 50 mg tablet traMADol 50 mg tablet No facility-administered medications prior to visit. Histories No past medical history on file. No past surgical history on file. Social History Socioeconomic History Marital status: Spouse name: Not on file Number of children: Not on file Years of education: Not on file Highest education level: Not on file Occupational History Not on file Social Needs Financial resource strain: Not on file Food insecurity: Worry: Not on file Inability: Not on file Transportation needs: Medical: Not on file Non-medical: Not on file Tobacco Use Smoking status: Never Smoker Smokeless tobacco: Never Used Substance and Sexual Activity Alcohol use: Never Frequency: Never Drug use: Not on file Sexual activity: Not on file Lifestyle Physical activity: Days per week: Not on file Minutes per session: Not on file Stress: Not on file Relationships Social connections: Talks on phone: Not on file Gets together: Not on file Attends yazdanism service: Not on file Active member of club or organization: Not on file Attends meetings of clubs or organizations: Not on file Relationship status: Not on file Intimate partner violence: Fear of current or ex partner: Not on file Emotionally abused: Not on file Physically abused: Not on file Forced sexual activity: Not on file Other Topics Concern Not on file Social History Narrative Not on file No family history on file. Review of Systems Constitutional: Positive for activity change. HENT: Negative. Eyes: Negative. Respiratory: Negative. Cardiovascular: Negative. Gastrointestinal: Negative. Genitourinary: Positive for difficulty urinating. Musculoskeletal: Positive for gait problem. Skin: Negative. Psychiatric/Behavioral: Negative. Endocrine: Endocrine negative Vital Signs BP 97/65 | Pulse 91 | Ht 68" (172.7 cm) | Wt 59 kg (130 lb) | BMI 19.77 kg/m Physical Exam Musculoskeletal: General: Well-developed well-nourished oriented to person place and time HEENT normocephalic atraumatic atraumatic pupils equal round reactive to light extraocular muscles intact Cervical thoracic and lumbar spine without focal deficit normal kyphosis and lordosis Chest clear to auscultation and percussion Cardiovascular regular rate and rhythm without gallop rub or murmur soft without organomegaly Normal bowel sounds Neurologic: Focal myotome or dermatomal deficits Vascular: Intact symmetrical bilateral upper and lower extremities Skin without stasis varicosities or breakdown Extremities without cyanosis clubbing or edema Lymphatics no peripheral lymphedema Psych normal mood and affect. Neurovascular function is intact. To include brisk capillary refill warm pink skin active motor function and sensory function intact. Nursing note and vitals reviewed. Assessment/Plan S/P IM Nail to the Right Femur Patient is able to wbat. Fracture healing well. Follow up 6 months. documented in this encounter Plan of Treatment [...] 04/05/2020 documented as of this encounter Results XR HIP 1 VW BILATERAL (03/25/2020 3:04 PM CDT) Specimen Narrative Performed At This result has an attachment that is no t available. Fracture in acceptable position with hardware intact PACS Performing Organization Address City/State/Zipcode Phone Number PACS documented in this encounter Visit Diagnoses Diagnosis Pain - Primary Generalized pain documented in this encounter Insurance Payer Benefit Plan / Subscriber ID Effective Dates Phone Addre ss Type Group MEDICARE MEDICARE PART xxxxxxxxxxx 2017-Kennedi [phone] [address] Medicare A & B t 2 [id number] [place] [id number] [facility] MEDICAID OF xxxxxxxxx 2018-Gunnar [phone] [address] Medicaid [facility] 0 [id number] [place] [address] (Work) documented as of this encounter
--- OUTSIDE RECORDS SUMMARY | 2020-07-07 20:07 | XMS REPORT | Summary of Care ---
:1950 Author Organization [facility] Address [address] [place] [address] Care Team Providers Name Role Phone Pcp, Does Not Have A Primary Care Provider Reason for Referral Radiology Services (Routine) Status Reason Specialty Diagnoses / Referred By Referred To Procedures Contact Contact New Request Diagnostic Diagnoses Pain En Mckeon Radiology Procedures XR HIP 1 VW BILATERAL MD Rashad [address] [place] [address] Reason for Visit Reason Comments Follow-up s/p S/P IM Nail to the Right Femur on 01/17/20 Encounter Details Date Type Department Care Team Description 03/25/2020 Office Visit [facility] Orthopaedic En Mckeon L , Pain (Primary Dx) Surgery- Rosa GUZMÁN [address] [facility] [address] [place] [address] [place], [place] [phone] [address] Allergies No Known Allergiesdocumented as of [...] file Gets together: Not on file Attends christianity service: Not on file Active member of [...] BOX Medicare A & B t 2 [id number] [place] [address] [facility] MEDICAID OF xxxxxxxxx 2018-Gunnar [phone] [address] Medicaid [facility] 0 [id number] [place] [address] (Work) documented as of this encounter
[2020-07-07] MEDS ORDERED: NA CHLORIDE 0.9% 500 ML ONE (20:29)
[2020-07-07 20:55] LABS: Absolute Lymphocytes (CBC) 1.4 K/uL (0.7-4.9); Basophils % 0.7 % (0-1.3); Hematocrit 37.8 % (36.0-45.0); Lymphocytes % 14.9 % (15.3-44.8); MPV 9.4 fL (7.6-11.3)
[2020-07-07 21:15] LABS: ALT/SGPT 13 U/L (12-78); AST/SGOT 16 U/L (15-37); Albumin 2.9 g/dL (3.4-5.0); Alkaline Phosphatase 103 U/L (45-117); BUN Blood Urea Nitrogen 28 mg/dL (7-18); Bicarbonate 25 mmol/L (21-32); Bilirubin Direct 0.1 mg/dL (0-0.2); Bilirubin Total 0.3 mg/dL (0.2-1.0); Glucose Level 100 mg/dL (74-106); Lipase 77 U/L (73-393); Magnesium 1.8 mg/dL (1.8-2.4); Protein, Total 6.9 g/dL (6.4-8.2); Protime INR 1.07; Sodium Level 141 mmol/L (136-145); Troponin (Emerg Dept Use Only) < 0.02 ng/mL (0.0-0.045)
[2020-07-07] MEDS ORDERED: HYDROCODONE/APAP 5/325 MG TAB ONE (21:22)
[2020-07-07 21:33] LABS: Urine Bacteria >50 /HPF (<20); Urine Culture Reflex Order NOT NEEDED; Urine RBC <5 /HPF (NONE SEEN)
[2020-07-07 21:37] LABS: Urine Blood TRACE (NEG); Urine Glucose NEGATIVE (NEG); Urine Protein TRACE (NEG); Urine pH 5.5 (5.0-7.0)
[2020-07-07] MEDS ORDERED: CEFTRIAXONE/SWI 1gm 1 GM/10 ML SYR ONE (21:49)
--- NOTE | 2020-07-07 22:46 | EDPHYS ---
Physician Documentation [facility] Name: Kailey Mcdermott Age: 70 yrs Sex: Female : 1950 Arrival Date: 07/07/2020 Time: 20:10 Bed 5 Private MD: ED Physician Ted Yap HPI: 07/07 20:17 This 70 yrs old Female presents to ER via EMS with complaints of syncope, rn dizziness. 20:17 The patient has experienced syncope. Onset: The symptoms/episode began/occurred just rn prior to arrival. Duration: This was a single episode. Associated injury: The patient did not suffer any apparent associated injury. Current symptoms: Currently, the patient is not experiencing any symptoms. It is unknown whether or not the patient has had similar symptoms in the past. Reports at birthday alliance party, having anxiety, shaking like she usually does around a lot of people. Was seated, thinks passed out, no injury. Reports since leaving hospital a month or 2 ago, has felt weak, no appetite, not eating as well. Also reports mild bladder spasm and discomfort, has indwelling iniguez. Has hx of seizures, takes keppra, no post-ictal period today per EMS or bystanders, patient does not feel like had a seizure.. Historical: - Allergies: 20:16 Bactrim; mg2 20:16 Cipro; mg2 - Home Meds: 20:16 levothyroxine 25 mcg tab once daily [Active]; Keppra 750 mg Oral tab 1 tab 2 times per mg2 day [Active]; 23:16 aspirin 81 mg Oral TbEC 1 tab once daily [Active]; mg2 - PMHx: 20:16 Anxiety; benign tremors; GERD; Hernia; High Cholesterol; Hypothyroidism; narrowed mg2 throat; Hypertension; Seizures; - Immunization history:: Flu vaccine status is unknown. - Social history:: Smoking status: unknown. - Family history:: not pertinent. - Hospitalizations: : No recent hospitalization is reported. ROS: 20:17 Constitutional: Negative for fever, chills, and weight loss, Eyes: Negative for injury, rn pain, redness, and discharge, Cardiovascular: Negative for chest pain, palpitations, and edema, Respiratory: Negative for shortness of breath, cough, wheezing, and pleuritic chest pain, Abdomen/GI: Negative for vomiting, diarrhea, and constipation, : Negative for injury, bleeding, discharge, and swelling, MS/Extremity: Negative for injury and deformity, Skin: Negative for injury, rash, and discoloration, Neuro: Negative for numbness, tingling, and seizure. Exam: 20:17 Constitutional: This is a well developed, well nourished patient who is awake, alert, rn and in no acute distress. Head/Face: Normocephalic, atraumatic. ENT: dry MM Neck: Trachea midline, no masses palpated, and no cervical lymphadenopathy. Supple, full range of motion without nuchal rigidity, or vertebral point tenderness. No Meningismus. Cardiovascular: Regular rate and rhythm. No pulse deficits. Respiratory: No increased work of breathing, no retractions or nasal flaring. Abdomen/GI: soft, non-tender Skin: Warm, dry MS/ Extremity: Pulses equal, no cyanosis. Neurovascular intact. Full, normal range of motion. Equal circumference. Neuro: Awake and alert, GCS 15, oriented to person, place, time, and situation. Cranial nerves II-XII grossly intact. Motor strength 4/5 in all extremities. Sensory grossly intact. + coarse bilateral upper ext tremor 20:57 ECG was reviewed by the Attending Physician. rn Vital Signs: 20:11 BP 140 / 108; Pulse 73; Resp 18; Pulse Ox 99% on R/A; Weight 58.06 kg; Height 5 ft. 8 mg2 in. (172.72 cm); 20:36 Temp 98.4; mg2 21:17 BP 127 / 70; Pulse 88; Resp 18; Pulse Ox 99% ; ea 23:09 BP 137 / 83; Pulse 65; Resp 18; Pulse Ox 95% on R/A; mg2 20:11 Body Mass Index 19.46 (58.06 kg, 172.72 cm) mg2 MDM: 20:14 Patient medically screened. rn 22:43 Differential Diagnosis: cardiac arrhythmia, emotional response, idiopathic syncope, rn seizure, transient ischemic attack, vasovagal episode. Data reviewed: vital signs, nurses notes, lab test result(s), EKG, radiologic studies, CT scan, and as a result, I will admit patient. Counseling: I had a detailed discussion with the patient and/or guardian regarding: the historical points, exam findings, and any diagnostic results supporting the discharge/admit diagnosis, lab results, radiology results, the need for further work-up and treatment in the hospital. Response to treatment: There is no appreciated change of the patient's symptoms at this time, and as a result, I will admit patient. Admission orders: after a detailed discussion of the patient's condition and case, the admit orders are written by me. ED course: Pt still doesn't feel well, will obs overnight in hospital to Dr. Lira for UTI, weakness, syncope vs seizure. Per report, patient out "20 minutes", but EMS unable to verify. Seems more like syncope than seizure. CT head no acute findings. . 22:43 ED course: Anxiety and hyperventilation possibly playing a role as well. . rn 07/07 20:15 Order name: Basic Metabolic Panel; Complete Time: : rn 07/07 20:15 Order name: CBC with Diff; Complete Time: : rn 07/07 20:15 Order name: Hepatic Function; Complete Time: : 07/07 20:15 Order name: Lipase; Complete Time: : rn 07/07 20:15 Order name: Magnesium; Complete Time: : rn 07/07 20:15 Order name: Protime (+inr); Complete Time: : rn 07/07 20:15 Order name: Troponin (emerg Dept Use Only); Complete Time: : rn 07/07 20:16 Order name: Urine Culture rn 07/07 20:16 Order name: Urine Microscopic Only; Complete Time: 21: 07/07 20:16 Order name: Procalcitonin; Complete Time: 21: rn 07/07 20:16 Order name: COVID-19 rn 07/07 20:17 Order name: Blood Culture Adult (2) rn 07/07 20:30 Order name: PTT, Activated Partial Thromb; Complete Time: 21:23 EDMS 07/07 20:15 Order name: EKG; Complete Time: 20:16 rn 07/07 20:15 Order name: Cardiac monitoring; Complete Time: 20:33 rn 07/07 20:15 Order name: EKG - Nurse/Tech; Complete Time: 20:33 rn 07/07 20:15 Order name: IV Saline Lock; Complete Time: 20:36 rn 07/07 20:15 Order name: Labs collected and sent; Complete Time: 20:36 rn 07/07 20:15 Order name: O2 Per Protocol; Complete Time: 20:36 rn 07/07 20:15 Order name: O2 Sat Monitoring; Complete Time: 20:36 rn 07/07 20:16 Order name: Urine Dipstick-Ancillary (obtain specimen); Complete Time: 21:24 rn 07/07 21:33 Order name: Urine Dipstick--Ancillary (enter results); Complete Time: 21:37 mw2 07/07 21:39 Order name: Head Brain Wo Cont EDMS EC:57 Rate is 69 beats/min. Rhythm is regular. QRS [place] is Normal. WV interval is normal. QRS rn interval is normal. QT interval is normal. No Q waves. T waves are Normal. No ST changes noted. Clinical impression: NSR w/ Non-specific ST/T Changes. Interpreted by me. Reviewed by me. Administered Medications: 20:36 Drug: NS 0.9% 500 ml Route: IV; Rate: bolus; Site: right hand; mg2 21:24 Follow up: Response: No adverse reaction; IV Status: Completed infusion; IV Intake: mg2 500ml 22:47 Follow up: Response: No adverse reaction; IV Status: Completed infusion; IV Intake: ea 500ml 21:15 Drug: [employer] 5 mg-325 mg 1 tabs Route: PO; ea 22:47 Follow up: Response: No adverse reaction; RASS: Alert and Calm (0) ea 21:39 Drug: Rocephin 1 grams Route: IV; Rate: calculated rate; Site: right hand; mg2 22:47 Follow up: Response: No adverse reaction; IV Status: Completed infusion ea Disposition: 07/07/20 22:45 Hospitalization ordered by Agustin Lira for Observation. Preliminary diagnosis are Urinary tract infection, site not specified, Weakness, Syncope and collapse. - Bed requested for Telemetry/MedSurg (observation). - Status is Observation. mg2 - Condition is Stable. - Problem is new. - Symptoms are unchanged. Signatures: Dispatcher [employer] EDMS Ted Yap MD MD rn Garcia, Cindy, RN RN cg Antunez, Elena, RN RN ea Gardose, Michele, RN RN mg2 Corrections: (The following items were deleted from the chart) 20:30 20:16 PTT, ACTIVATED+COAG.LAB.BRZ ordered. EDMS EDMS 21:39 20:16 Head Brain Wo Cont+CT.RAD.BRZ ordered. EDNM EDMS 23:37 22:45 Hospitalization Ordered by Agustin Lira MD for Observation. Preliminary cg diagnosis is Urinary tract infection, site not specified; Weakness; Syncope and collapse. Bed requested for Telemetry/MedSurg (observation). Status is Observation. Condition is Stable. Problem is new. Symptoms are unchanged. rn 07/08 00:29 07/07 23:37 07/07/2020 22:45 Hospitalization Ordered by Agustin Lira MD for mg2 Observation. Preliminary diagnosis is Urinary tract infection, site not specified; Weakness; Syncope and collapse. Bed requested for Telemetry/MedSurg (observation). Status is Observation. Condition is Stable. Problem is new. Symptoms are unchanged. cg
--- NOTE | 2020-07-07 22:46 | ER ---
Nurse's Notes [facility] Name: Kailey Mcdermott Age: 70 yrs Sex: Female : 1950 Arrival Date: 07/07/2020 Time: 20:10 Bed 5 Private MD: Diagnosis: Urinary tract infection, site not specified;Weakness;Syncope and collapse Presentation: 07/07 20:11 Chief complaint: EMS states: she was in a birthday democrat today, got upset and passed mg2 out while sitting. on scene patient was AOx4, not post ictal. BGL 135 mg/dl. she is also complaining of bladder spasm, FC in situ, and right leg pain had recent leg FRACTURE. Coronavirus screen: Client denies travel out of the [place] in the last 14 days. At this time, the client does not indicate any symptoms associated with coronavirus-19. Ebola Screen: No symptoms or risks identified at this time. Initial Sepsis Screen: Does the patient meet any 2 criteria? No. Patient's initial sepsis screen is negative. Does the patient have a suspected source of infection? No. Patient's initial sepsis screen is negative. Risk Assessment: Do you want to hurt yourself or someone else? Patient reports no desire to harm self or others. Onset of symptoms was July 07, 2020. 20:11 Method Of Arrival: EMS: [facility] mg2 20:11 Acuity: MERYL 3 mg2 Historical: - Allergies: 20:16 Bactrim; mg2 20:16 Cipro; mg2 - Home Meds: 20:16 levothyroxine 25 mcg tab once daily [Active]; Keppra 750 mg Oral tab 1 tab 2 times per mg2 day [Active]; 23:16 aspirin 81 mg Oral TbEC 1 tab once daily [Active]; mg2 - PMHx: 20:16 Anxiety; benign tremors; GERD; Hernia; High Cholesterol; Hypothyroidism; narrowed mg2 throat; Hypertension; Seizures; - Immunization history:: Flu vaccine status is unknown. - Social history:: Smoking status: unknown. - Family history:: not pertinent. - Hospitalizations: : No recent hospitalization is reported. Screenin:38 Abuse screen: Denies threats or abuse. Denies injuries from another. Nutritional mg2 screening: No deficits noted. Tuberculosis screening: No symptoms or risk factors identified. Fall Risk IV access (20 points). Assessment: 20:37 General: Appears in no apparent distress. comfortable, Behavior is calm, cooperative. mg2 Pain: Complains of pain in right leg. Neuro: Level of Consciousness is awake, alert, obeys commands, Oriented to person, place, time, situation. Neuro: Reports a syncopal episode. Cardiovascular: Capillary refill < 3 seconds Patient's skin is warm and dry. Respiratory: Airway is patent Respiratory effort is even, unlabored, Respiratory pattern is regular, symmetrical. GI: No signs and/or symptoms were reported involving the gastrointestinal system. : No signs and/or symptoms were reported regarding the genitourinary system. EENT: No signs and/or symptoms were reported regarding the EENT system. Derm: Skin is intact, is healthy with good turgor, Skin is pink, warm \T\ dry. normal. Musculoskeletal: Circulation, motion, and sensation intact. Capillary refill < 3 seconds. 21:16 Reassessment: Patient and/or family updated on plan of care and expected duration. Pain ea level reassessed. Patient is alert, oriented x 3, equal unlabored respirations, skin warm/dry/pink. Pt complaining of pain provider notified, medication order obtained, medication administered, pt tolerating well. 21:36 Reassessment: daughter Keron [phone] updated. mg2 22:18 Reassessment: Patient and/or family updated on plan of care and expected duration. Pain ea level reassessed. Patient is alert, oriented x 3, equal unlabored respirations, skin warm/dry/pink. 23:09 Reassessment: Patient appears in no apparent distress at this time. Patient and/or mg2 family updated on plan of care and expected duration. Pain level reassessed. Patient is alert, oriented x 3, equal unlabored respirations, skin warm/dry/pink. 23:32 Reassessment: left a voicemail on the daughter's phone about the plan for admission. mg2 07/08 00:04 Reassessment: primary nurse will call me back for the report. mg2 Vital Signs: 07/07 20:11 BP 140 / 108; Pulse 73; Resp 18; Pulse Ox 99% on R/A; Weight 58.06 kg; Height 5 ft. 8 mg2 in. (172.72 cm); 20:36 Temp 98.4; mg2 21:17 BP 127 / 70; Pulse 88; Resp 18; Pulse Ox 99% ; ea 23:09 BP 137 / 83; Pulse 65; Resp 18; Pulse Ox 95% on R/A; mg2 20:11 Body Mass Index 19.46 (58.06 kg, 172.72 cm) mg2 ED Course: 20:10 Patient arrived in ED. am2 20:11 Jordan Ross, NEGRITA is Primary Nurse. mg2 20:14 Ted Yap MD is Attending Physician. rn 20:15 Triage completed. mg2 20:16 Arm band placed on. mg2 20:30 Missed attempt(s): 22 gauge in right forearm. Bleeding controlled, band aid applied, ea catheter tip intact. 20:38 Patient has correct armband on for positive identification. mg2 20:38 No provider procedures requiring assistance completed. Maintain EMS IV. Dressing mg2 intact. Site clean \T\ dry. Gauge \T\ site: 20 RH. 22:12 Head Brain Wo Cont In Process Unspecified. EDMS 22:45 Agustin Lira MD is Hospitalizing Provider. rn Administered Medications: 20:36 Drug: NS 0.9% 500 ml Route: IV; Rate: bolus; Site: right hand; mg2 21:24 Follow up: Response: No adverse reaction; IV Status: Completed infusion; IV Intake: mg2 500ml 22:47 Follow up: Response: No adverse reaction; IV Status: Completed infusion; IV Intake: ea 500ml 21:15 Drug: [place] 5 mg-325 mg 1 tabs Route: PO; ea 22:47 Follow up: Response: No adverse reaction; RASS: Alert and Calm (0) ea 21:39 Drug: Rocephin 1 grams Route: IV; Rate: calculated rate; Site: right hand; mg2 22:47 Follow up: Response: No adverse reaction; IV Status: Completed infusion ea Intake: 21:24 IV: 500ml; Total: 500ml. mg2 22:47 IV: 500ml; Total: 1000ml. ea Outcome: 22:45 Decision to Hospitalize by Provider. rn 22:46 Instructed on the need for admit, Demonstrated understanding of instructions. ea 07/08 00:29 Patient left the ED. mg2 Signatures: Dispatcher [employer] EDMS Ted Yap MD MD rn Moreno, Amanda am2 Zahira Vu RN RN ea Gardose, Michele, RN RN mg2 Corrections: (The following items were deleted from the chart) 07/07 21:39 20:59 In radiology for Head Brain Wo Cont+CT.RAD.BRZ. EDMS EDMS
--- NOTE | 2020-07-07 23:20 | P.HP ---
Certification for Inpatient Patient admitted to: Observation With expected LOS: <2 Midnights Patient will require the following post-hospital care: None Practitioner: I am a practitioner with admitting privileges, knowledge of patient current condition, hospital course, and medical plan of care. Services: Services provided to patient in accordance with Admission requirements found in Title 42 Section 412.3 of the Code of Federal Regulations Patient History Date of Service: 07/07/20 Primary Care Provider: Keisha Reason for admission: Syncope/UTI History of Present Illness: 62-year-old female with history of seizures, Parkinson's, chronic kidney disease, anxiety, hyperlipidemia, hypothyroidism presented the emergency department an episode of decreased mentation attributed by family to possible seizure activity. Patient states that she did not feel as if this was a seizure. Patient reports that she is at her granddaughter 16-year-old birthday green party and that she does not do well around the groups of people. Patient states that she is emotional and crying prior to the episode where she reportedly lost consciousness and wean down in her chair sideways on to somebody sitting next to her. No postictal state reported by EMS. During her evaluation in the emergency department patient had CT scan of the head which was negative, other labs unremarkable aside from chronic kidney disease, which she has. Patient does have indwelling Vazquez catheter that was placed approximately 1 week ago for urinary retention. Patient found to have urinary tract infection. When I saw the patient in the emergency department she was awake, alert, oriented x4. Patient does not appear septic at this time. Vital signs within normal limits. Will admit under observation for further evaluation and management. Patient reports the last time she had a urinary tract infection she had that the IV antibiotics since she cannot take any oral antibiotics due to allergies and chronic kidney disease. Allergies No Known Allergies Allergy (Verified 04/02/17 03:58) Home Medications: Omeprazole [Prilosec] 40 mg PO DAILY 07/30/16 Aspirin [Aspirin EC 81 MG] 81 mg PO DAILY #30 tablet. 08/04/16 Atorvastatin Calcium [Lipitor] 40 mg PO DAILY AT SUPPER #30 tablet 08/04/16 Ibuprofen 1 tab PO Q4HP PRN 03/16/17 Nitroglycerin [Nitrostat*] 1 tab SL [id number] 03/16/17 traMADol HCL [Ultram*] 1 tab PO Q6HP PRN 03/16/17 Sertraline [Zoloft*] 50 mg PO DAILY #30 tab 03/17/17 levETIRAcetam [Keppra*] 750 mg PO BID #60 tab 03/17/17 Levothyroxine Sodium 25 mcg PO DAILY 04/02/17 Multivit-Min/Iron Fum/Folic AC [Nxgyg-Ekuvvdp-Ipsvrfnn Tablet] 1 tab PO DAILY 04/02/17 Ondansetron HCl [Zofran] 4 mg PO Q4HP 04/02/17 Ciprofloxacin HCl [Cipro 250 MG Tablet*] 250 mg PO BID #14 tab 04/04/17 - Past Medical/Surgical History Diabetic: No -: UTI -: SEIZURES -: HTN -: PARKINSON'S status post deep brain stimulation mostly resolved -: HAND TREMORS -: ANXIETY -: RLS -: ABD PAIN -: CKD stage 3 -: HYSTERECOMY -: CARPAL TUNNEL Psychosocial/ Personal History: Patient currently lives at home with her family - Family History Father -: Heart disease, Diabetes, Kidney disease Mother -: Heart disease, Diabetes Notes: pacemaker Sister -: Diabetes - Social History Smoking Status: Never smoker Alcohol use: No CD- Drugs: No Caffeine use: No Place of Residence: Home Review of Systems 10-point ROS is otherwise unremarkable Genitourinary: Other (Bladder spasming), As per HPI Physical Examination - Physical Exam General: Alert, In no apparent distress, Oriented x3, Other (Patient noted to have tremor.) HEENT: Atraumatic, Normocephalic, PERRLA Neck: Supple Respiratory: Clear to auscultation bilaterally, Normal air movement Cardiovascular: No edema, Normal S1 S2 Capillary refill: <2 Seconds Gastrointestinal: Normal bowel sounds, Soft and benign Musculoskeletal: No swelling, No contractures, No erythema Integumentary: No tenderness/swelling, No erythema Neurological: Normal speech, Normal strength at 5/5 x4 extr, Normal tone - Studies Laboratory Data (last 24 hrs) 07/07/20 20:44: PT 12.6 H, INR 1.07, APTT 24.7 07/07/20 20:44: WBC 9.3, Hgb 12.6, Hct 37.8, Plt Count 166 07/07/20 20:44: Sodium 141, Potassium 4.0, BUN 28 H, Creatinine 1.40 H, Glucose 100, Magnesium 1.8, Total Bilirubin 0.3, AST 16, ALT 13, Alkaline Phosphatase 103, Lipase 77 07/07/20 20:16: APTT Cancelled Assessment and Plan - Plan Assessment Syncope, unknown etiology Urinary tract infection complicated by Vazquez catheter dependence for urinary retention History of seizures Hypothyroidism Hyperlipidemia Anxiety Plan Syncope, unknown etiology: Given the circumstances could likely be related to anxiety. Will obtain echocardiogram and ultrasound of the carotid arteries. Patient to remain on telemetry throughout this hospitalization. Will continue gentle hydration. DVT prophylaxis heparin 5000 units subcutaneous b.i.d.. Urinary tract infection complicated by Vazquez catheter dependence for urinary retention: Urine culture obtained in the emergency department, continue Rocephin at this time. Due to patient's history of CKD and allergies to Cipro she has had to have IV antibiotics in the past for urinary tract infection. Will monitor micro for culture report. History of seizures: Seizure precautions, continue patient's seizure medication. Hypothyroidism: Obtain and continue patient's home medications will check TSH and T4 levels with the morning labs. Hyperlipidemia: Obtain and continue patient's home medications. Anxiety: Continue home meds and added p.r.n. medications for anxiety. Discharge Plan: Home Plan to discharge in: 24 Hours - Advance Directives Does patient have a Living Will: No Does patient have a Durable POA for Healthcare: Yes - Code Status/Comfort Care Code Status Assessed: Yes (Patient is full code) Critical Care: No Time Spent Managing Pts Care (In Minutes): 55
[2020-07-08] MEDS ORDERED: ONDANSETRON 4 MG/2 ML VIAL IV PRN (00:47)
[2020-07-08] MEDS ORDERED: LORazepam 2 MG/ML VIAL IV PRN (00:47)
[2020-07-08] MEDS ORDERED: ACETAMINOPHEN 500 MG TAB PO PRN (00:47)
[2020-07-08] MEDS: NA CHLORIDE 0.9% 1,000 ML IV SCH ×2 (00:47→17:27)
[2020-07-08 01:34] VITALS: BMI 19.5
[2020-07-08] MEDS: levETIRAcetam 500 MG TAB PO SCH ×3 (01:35→20:42)
[2020-07-08 04:39] LABS: Absolute Lymphocytes (CBC) 1.1 K/uL (0.7-4.9); Basophils % 1.4 % (0-1.3); Hematocrit 35.5 % (36.0-45.0); Lymphocytes % 15.3 % (15.3-44.8); MPV 10.2 fL (7.6-11.3)
[2020-07-08 05:02] LABS: Magnesium 1.7 mg/dL (1.8-2.4); Thyroid Stimulating Hormone 3.5 uIU/mL (0.360-3.740)
[2020-07-08] MEDS ORDERED: MAGNESIUM SULFATE 1 gm IVPB 1 GM/100 ML BAG IV ONE (05:05)
[2020-07-08] MEDS ORDERED: LORazepam 2 MG/ML VIAL IV ONE (08:21)
[2020-07-08] MEDS ORDERED: levETIRAcetam 500 MG in NA CHLORIDE 0.9% 100 ML IV ONE (08:23)
--- NOTE | 2020-07-08 08:38 | P.PN ---
Subjective Date of Service: 07/08/20 Patient with persistent seizures; patient given Ativan but continued; given dose of Keppra Review of Systems 10-point ROS is otherwise unremarkable Physical Examination - Vital Signs Temperature: 98.1 F Blood Pressure: 115/59 Pulse: 81 Respirations: 16 Pulse Ox (%): 96 - Physical Exam General: Alert, In no apparent distress, Oriented x3 Respiratory: Clear to auscultation bilaterally, Normal air movement Cardiovascular: Regular rate/rhythm, Normal S1 S2 Gastrointestinal: Normal bowel sounds, Soft and benign, Non-distended, No tenderness Musculoskeletal: No tenderness Neurological: Normal strength at 5/5 x4 extr, Normal tone, Sensation intact, Cranial nerves 3-12 intact - Studies Laboratory Data (last 24 hrs) 07/07/20 20:44: PT 12.6 H, INR 1.07, APTT 24.7 07/07/20 20:44: WBC 9.3, Hgb 12.6, Hct 37.8, Plt Count 166 07/07/20 20:44: Sodium 141, Potassium 4.0, BUN 28 H, Creatinine 1.40 H, Glucose 100, Magnesium 1.8, Total Bilirubin 0.3, AST 16, ALT 13, Alkaline Phosphatase 103, Lipase 77 07/07/20 20:16: APTT Cancelled Microbiology Data (last 24 hrs): 07/07/20 20:38 Blood - Blood Anaerobic Blood Culture - Final 07/07/20 20:38 Blood - Blood Anaerobic Blood Culture - Final Medications List Reviewed: Yes Assessment & Plan - Problems (Diagnosis) (1) Convulsions, status epilepticus Current Visit: Yes Status: Acute (2) Urinary tract infectious disease Onset Date: 07/19/15 Current Visit: No Status: Acute (3) Anxiety Current Visit: No Status: Chronic (4) Hypertension Onset Date: 04/22/15 Current Visit: No Status: Chronic Qualifiers: Discharge Plan: Home Plan to discharge in: 24 Hours - Advance Directives Does patient have a Living Will: Yes Does patient have a Durable POA for Healthcare: Yes - Code Status/Comfort Care Code Status Assessed: Yes Code Status: Full Code Critical Care: No Time Spent Managing PTS Care (In Minutes): 30
[2020-07-08] MEDS ORDERED: CEFTRIAXONE 1 GM/NS 50 ML 1 GM/50 ML BAG IV SCH (09:00)
[2020-07-08] MEDS: SERTRALINE HCL 100 MG TAB PO SCH (09:12)
[2020-07-08] MEDS: HEPARIN 5000 UNIT/ML 1 ML VIAL SQ SCH ×2 (09:13→20:36)
--- NOTE | 2020-07-08 09:13 | RAD REPORT ---
EXAM DESCRIPTION: - CP - 07/08/2020 8:39 am CLINICAL HISTORY: syncope Headache, drowsiness COMPARISON: Head C Spine Mpr Wo Con dated 04/01/2017 TECHNIQUE: Real-time sonographic evaluation of the right carotid systems was performed. Doppler inte rrogation was performed with waveform tracing bilaterally. FINDINGS: Patient suffered a seizure during this study, therefore the left side of the assessed. Mild hard plaquing is present in the proximal right carotid bulb region and proximal right ICA. No he modynamically significant stenosis seen. Antegrade flow seen in the right vertebral arteries. IMPRESSION: Mild hard plaquing involving the right carotid bulb and proximal right ICA. No evidence of a hemodynamically significant stenosis on the right. Left carotid system could not be assessed due to a seizure during the study.
--- NOTE | 2020-07-08 09:18 | RAD REPORT ---
EXAM DESCRIPTION: Head Brain Wo Cont CLINICAL HISTORY: SYNCOPAL EPISODE COMPARISON: None Available. TECHNIQUE: Contiguous axial images of the brain were obtained without the administration of intraven ous contrast. This exam was performed according to our departmental dose-optimization program, which includes automated exposure control, adjustment of the mA and/or kV according to patient size and/or use of iterative reconstruction technique. FINDINGS: There is no acute intracranial hemorrhage or mass effect. Bilateral subthalamic electrodes noted. There is atherosclerosis. Ventricular system is within normal limits. There is adequate francis- white matter differentiation. There is no skull fracture. The visualized paranasal sinuses and mastoi d air cells are within normal limits. There is atherosclerosis. IMPRESSION: No acute intracranial abnormalities. Electronically signed by: Gee Long MD 07/07/2020 10:27 PM CDT Due to temporary technical issues with the PACS/Fluency reporting system, reports are being signed by the in house radiologist without review as a courtesy to ensure prompt reporting. The interpreting r adiologist is fully responsible for the content of the report.
[2020-07-08 21:47] VITALS: O2SAT 97
[2020-07-08] MEDS ORDERED: CEFTRIAXONE/SWI 1gm 1 GM/10 ML SYR IV SCH (22:00)
[2020-07-09] MEDS: NA CHLORIDE 0.9% 1,000 ML IV SCH (03:04)
[2020-07-09 04:10] LABS: Magnesium 1.8 mg/dL (1.8-2.4); Potassium 4.2 mmol/L (3.5-5.1)
[2020-07-09] MEDS ORDERED: MAGNESIUM SULFATE 1 gm IVPB 1 GM/100 ML BAG IV ONE (04:49)
[2020-07-09] MEDS: levETIRAcetam 500 MG TAB PO SCH (08:39)
[2020-07-09] MEDS: SERTRALINE HCL 100 MG TAB PO SCH (08:39)
[2020-07-09] MEDS: HEPARIN 5000 UNIT/ML 1 ML VIAL SQ SCH (08:39)
[2020-07-09] MEDS ORDERED: TOPIRAMATE 25 MG TAB PO SCH (09:00)
--- NOTE | 2020-07-09 09:01 | ECHO ---
HEIGHT: 5 ft 8 in WEIGHT: 128 lb 6.4 oz DATE OF STUDY: 07/08/[address]: Justin Cooper NP 2-DIMENSIONAL: YES M.MODE: YES DOPPLER: YES COLOR FLOW: YES TDS: NO PORTABLE: NO DEFINITY: NO BUBBLE STUDY: NO DIAGNOSIS: SYNCOPE CARDIAC HISTORY: CATHERIZATION: NO SURGERY: NO PROSTHETIC VALVE: NO PACEMAKER: NO MEASUREMENTS (cm) DIASTOLIC (NORMALS) SYSTOLIC (NORMALS) IVSd 1.0 (0.6-1.2) LA Diam 3.1 (1.9-4.0) LVEF 69% LVIDd 4.0 (3.5-5.7) LVIDs 2.5 (2.0-3.5) %FS 39% LVPWd 1.0 (0.6-1.2) Ao Diam 2.7 (2.0-3.7) 2 DIMENSIONAL ASSESSMENT: RIGHT ATRIUM: NORMAL LEFT ATRIUM: NORMAL RIGHT VENTRICLE: NORMAL LEFT VENTRICLE: NORMAL TRICUSPID VALVE: NORMAL MITRAL VALVE: PULMONIC VALVE: AORTIC VALVE: NORMAL PERICARDIAL EFFUSION: NONE AORTIC ROOT: NORMAL LEFT VENTRICULAR WALL MOTION: NORMAL DOPPLER/COLOR FLOW: NORMAL COMMENTS: NORMAL LEFT VENTRICULAR EJECTION FRACTION 55-60% WITH NORMAL WALL MOTION. MILD PULMONARY INSUFFIENCY. MILD MITRAL REGURGITATION. TECHNOLOGIST: Nicola CLEANING
[2020-07-09 12:44] VITALS: BP 142/72; TEMP 97
--- NOTE | 2020-07-10 12:33 | EEG ---
CHART: [id number] TEST ID#: 07/08/[id number] DATE OF STUDY: THE EEG WAS RECORDED PORTABLE IN THE PATIENT'S ROOM ON A 17 CHANNEL MACHINE. ELECTRODES WERE APPLIED IN THE USUAL MANNER USING THE INTERNATIONAL 10-20 SYSTEM. THE WAKING BACKGROUND RHYTHM IN THIS RECORD CONSISTS OF FAIRLY WELL DEVELOPED AND FAIRLY WELL ORGANIZED WAVES OF 10 HZ., MAXIMAL IN THE POSTERIOR HEAD REGIONS WHICH ATTENUATE NORMALLY WITH EYE OPENING. IN DROWSINESS THE BACKGROUND DROPS TO 9 HZ. THERE ARE NO FOCAL OR LATERALIZING FEATURES. NO EPILEPTIFORM ACTIVITY APPEARS. SLEEP NOT PERFORMED. HYPERVENTILATION WAS NOT PERFORMED. PHOTIC STIMULATION PRODUCED FAIR DRIVING BILATERALLY. IMPRESSION: NORMAL EEG FOR THE AGE OF THE PATIENT IN WAKE AND DROWSINESS.
== END 2020-07-09 13:36 | disposition home or self-care (01) | DRG 699 ==
LOC: ER 20:04 → ERHOLD 23:08 → 4TH 07-08 00:22 → OBSVTOIN 07-09 09:38
PROVIDERS: ADMIT Hospitalist; ATTEND Hospitalist
DX: T83.518A Infection and inflammatory reaction due to other urinary catheter, initial encounter (principal); N39.0 Urinary tract infection, site not specified; G40.901 Epilepsy, unspecified, not intractable, with status epilepticus; K21.9 Gastro-esophageal reflux disease without esophagitis; E03.9 Hypothyroidism, unspecified; G20 Parkinson's disease; I12.9 Hypertensive chronic kidney disease with stage 1 through stage 4 chronic kidney disease, or unspecified chronic kidney disease; E78.5 Hyperlipidemia, unspecified; N18.3 Chronic kidney disease, stage 3 (moderate); R33.9 Retention of urine, unspecified; F41.9 Anxiety disorder, unspecified; Z79.82 Long term (current) use of aspirin; Z79.899 Other long term (current) drug therapy; Z90.710 Acquired absence of both cervix and uterus; Z88.1 Allergy status to other antibiotic agents; Z79.890 Hormone replacement therapy; Z11.59 Encounter for screening for other viral diseases
CPT/HCPCS: 36415; 70450; 80048; 80076; 81003; 81015; 83690; 83735; 84145; 84439; 84443; 84484; 85025; 85610; 85730; 87040; 87077; 87086; 87088; 87186; 93306; 93880; 95816; 96361; 96365; 99283; G0378; J0696; J1644; J1953; J3475; J7030; J7040; U0003

== ENCOUNTER 2021-04-03 15:17 | Observation (INO) | payer OTHER ==
--- OUTSIDE RECORDS SUMMARY | 2021-04-03 15:23 | XMS REPORT | Continuity of Care Document ---
:1950 Author Organization [facility] t Address [address] [place] [address] Care Team Providers Name Role Phone TALIA Primary Care Physician Unavailable Gramm Randy HAYS Attending Clinician Rodrigo Townsend Attending Clinician Trever Montes MD Attending Clinician Mary Youssef MD Attending Clinician RODRIGO TOWNSEND Attending Clinician Unavailable TREVER MONTES Attending Clinician Unavailable RENZO MELGAR M.D. Attending Clinician Unavailable MARY YOUSSEF Admitting Clinician Unavailable TREVER MONTES Admitting Clinician Unavailable RENZO MELGAR M.D. Admitting Clinician Unavailable Payers Payer Name Policy Type Policy Effective Date Expiration Date Sour ce Number MEDICAREMEDICARE A [id number] 2017 AYANA Smith [id number] 2016-P 00:00:00 - Medical resentMedicare Center MEDICAIDMEDICAID OF [id number] 2018 AYANA Smith [id number] 00:00:00 - Medical 8-PresentMedicaid Center Problems Condition Condition Condition Status Onset Resolution Last Treating Co mments Source Name Details Category Date Date Treatment Clinician Date Seizure Seizure Disease Active 2019-[address] [facility] 00 Center Status Status Disease Active 2019-[address] [facility] epilepticu epilepticu 2-14 Melania kes - s s 00:00: Medical 00 Center Right Right Diagnosis Active [facility] sci[facility] nerve pain nerve pain [facility] Pain, Pain, Diagnosis Active [facility] joint, joint, [facility] - hip, right hip, right [facility] Pain, Pain, Diagnosis Active [facility] joint, joint, [facility] - knee, knee, [facility]oria right right l [facility] Allergies, Adverse Reactions, Alerts Allergy Allergy Status Severity Reaction(s) Onset Inactive Treating Comm ents Source Name Type Date Date Clinician No Known DA Active U 2011-11 [facility] All[facility]ie 24 [place] s 00:00: d [address] [facility] Social History Social Habit Start Date Stop Date Quantity Comments Source Sex Assigned At [facility] Alcohol intake 2020-11-04 2020-11-04 Ex-drinker [facility] es - 00:00:00 00:00:00 (finding) [facility] Tobacco use and 2020-11-04 2020-11-04 Never used [facility] exposure 00:00:00 00:00:[address] [facility] Smoking Status Start Date Stop Date Source Never smoker [facility] Medications Ordered Filled Start Stop Current Ordering Indication Dosage Frequency Signature Comments Components Source Medication Medication Date Date Medication? Clinician (SIG) Name Name aspirin 81 2019-11 Yes 81mg QD Take [address] MG EC 2-24 by mouth [facility] - tablet 22:57: daily. Medical 03 Center HYDROcodone 2019-11 Yes 1{tbl} Take [address] -acetaminop 2-24 tablet by Sudhakar es - hen (NORCO 22:57: mouth Medica l 5-325) 03 every 6 Center 5-325 mg (six) per tablet hours as needed for Pain. primidone 2019-11 Yes 50mg Q.25D Take [address] (MYSOLINE) 2-24 by mouth 4 Sudhakar es - 50 MG 22:57: (four) Medical tablet 03 times Center daily. sertraline 2019-11 Yes 50mg QD Take [address] (ZOLOFT) 50 2-24 by mouth Luke s - MG tablet 22:57: daily. Medica l 03 Center MAGNESIUM 2019-11 Yes 400mg QD Take [address] OXIDE ORAL 2-24 mg by [facility] - 22:57: mouth Medical 03 daily . Center levothyroxi 2019-11 Yes 50ug Take [address] ne 2-24 mcg by [facility] - (SYNTHROID, 22:57: mouth Medic al LEVOTHROID) 03 Every Center 50 MCG morning on tablet an empty stomach. topiramate 2019-11 Yes 50mg Q.5D Take [address] (TOPAMAX) 2-24 by mouth 2 Luke s - 50 MG 22:57: (two) Medical tablet 03 times Center daily. enoxaparin 2019-11 Yes deep vein 30mg QD Inject [address] (LOVENOX) 2-24 thrombosis mg Luke s - 30 mg/0.3 22:57: prevention subcutaneo Medical mL Syrg 03 ly Center daily. B-complex 2019-11 Yes vitamin 1{tbl} QD Take [address] with 2-24 deficiency tablet by Luke s - vitamin C 22:57: prevention mouth M edical tablet 03 daily. [place] thiamine 2019-11 Yes thiamine 50mg QD Take [address] (VITAMIN 2-24 deficiency by mouth L ukes - B-1) 50 MG 22:57: daily. Medic al tablet 03 Center LORazepam 2019-11 Yes 1mg Take [address] (ATIVAN) 1 2-24 by mouth [facility] - MG tablet 22:57: every 4 Medic al 03 (four) Center hours as needed for Anxiety (seizures) . nitroglycer 2019-11 Yes pre-exertio .4mg Place 0.[address] in 2-24 nal mg under [facility] - (NITROSTAT) 22:57: prophylaxis the tongue Medical 0.4 MG SL 03 of anginal every 5 C enter tablet pain (five) minutes as needed for Chest pain Put 1 pill under tongue every 5min as needed for chest pain.No more than 3 doses in 15min.Call 911 if pain unrelieved 5min after 1st dose . melatonin 3 2019-11 Yes 3mg Take [address] mg Tab 2-24 by mouth [facility] - tablet 22:57: every Medical 03 night as Center needed. ondansetron 2019-11 Yes 4mg Take [address] (ZOFRAN) 4 2-24 by mouth [facility] - MG tablet 22:57: every 6 Medic al 03 (six) Center hours as needed for Nausea. polyethylen 2019-11 Yes constipatio 17g Take [address] e glycol 2-24 n by mouth [facility] - (GLYCOLAX) 22:57: daily as Med ical 17 gram 03 needed Center packet (constipat ion). pantoprazol 2019-11 Yes gastroesoph 40mg QD Take [address] e 2-24 ageal by mouth [facility] - (PROTONIX) 22:57: reflux daily. Med ical 40 MG 03 disease Center tablet pravastatin 2019-11 Yes hypertrigly 10mg QD Take [address] (PRAVACHOL) 2-24 ceridemia by mouth [facility] - 10 MG 22:57: daily. Medical tablet 03 Center omeprazole 2019-11- No 40mg QD Take [address] (PriLOSEC) 2-21 12-21 by mouth Luke s - 40 MG 23:22: 00:00 daily. Medical capsule 58 :00 Center simvastatin 2019-11 2020- No 5mg QD Take [address] (ZOCOR) 5 2-21 12-21 by mouth [facility] - MG tablet 23:22: 00:00 nightly. Med ical 31 :00 [place] gabapentin 2019-11 2020- No 200mg QD Take [address] (NEURONTIN) 2-18 12-18 mg by [facility] - 100 MG 17:29: 00:00 mouth Medical capsule 26 :00 nightly. Center levETIRAcet 2019-11 2020- No 500mg Q.5D Take [address] am (KEPPRA) 2-18 12-18 mg by [facility] - 500 MG 17:29: 00:00 mouth 2 Medical tablet 26 :00 (two) Center times daily. insulin 2019-11 Yes 5U QD Inject [address] glargine 2-18 Units [facility]ukes - (LANTUS) 00:00: subcutaneo Med ical 100 unit/mL 00 usly every Ce nter injection morning Use as directed. levETIRAcet 2019-11 Yes 1000mg Inject [facility] am (KEPPRA) 2-18 1,000 mg Luke s - IVPB 00:00: intravenou Medical 00 sly every Center 12 (twelve) hours. gabapentin 2019-11- No 300mg QD Take [address] (NEURONTIN) 01-02 capsule Luke s - 300 MG 00:00: 23:59 (300 mg Medical capsule 00 :00 total) by Center mouth nightly. insulin 2019-11- No 0U Inject [facility] lispro 01-02 0-16 Units [facility]ukes - (HumaLOG) 00:00: 23:59 subcutaneo M edical 100 unit/mL 00 :00 usly 4 Center injection (four) times daily before meals and nightly. phenytoin 2019-11- No 100mg Q.[id number] Take [address] (DILANTIN) 01-02 [id number] capsule [facility] - 100 MG ER 00:00: 23:59 3D (100 mg Medi lou capsule 00 :00 total) by Center mouth 3 (three) times daily. acetaminoph 2019-11 No 650mg Take [address] en 01-02- tablets [facility] - (TYLENOL) 00:00: 23:59 (650 mg Medi lou 325 MG 00 :00 total) by Center tablet mouth every 4 (four) hours as needed for up to 360 days. amoxicillin 2019-11- No 1{tbl} Q.5D Take [address] -clavulanat 01-02 12- tablet by Melania kes - e 00:00: 23:59 mouth 2 Medical (AUGMENTIN) 00 :00 (two) Center 875-125 mg times per tablet daily for 7 days. Alendronate Alendronate Yes Greg not [facility] Sodium Sodium Gonsalves defined [facility] Levothyroxi Levothyroxi Yes Greg not [...] Gabapentin Yes Greg not [facility] Major defined [facility] Naproxen Naproxen Yes Greg not [facility] Primidone Primidone Yes Greg not [facility] Gonsalves defined [facility] Levetiracet Levetiracet Yes Greg not [facility] am am Major defined [facility] Ciprofloxac Ciprofloxac Yes Greg not [facility] in HCl in HCl Gonsalves defined [facility] Diphenoxyla Diphenoxyla Yes Greg not [facility] te-Atropine te-Atropine Major defined [facility] Vital Signs Vital Name Observation Time Observation Value Comments Source Systolic blood 2020-11-07 19:46:00 162 mm[Hg] [facility] Diastolic blood 2020-11-07 19:46:00 96 mm[Hg] [facility] Heart rate 2020-11-07 19:46:00 96 /min [facility] Body temperature 2020-11-07 19:46:00 36.44 Nishi [facility] Respiratory rate 2020-11-07 19:46:00 20 /min [facility] Oxygen saturation in 2020-11-07 19:46:00 96 /min [facility] - Arterial blood by Medical Ce nter Pulse oximetry Body height 2020-11-04 10:05:00 168 cm [facility] Body weight 2020-11-04 10:05:00 58.5 kg [facility] BMI 2020-11-04 10:05:00 20.73 kg/m2 [facility] Procedures Procedure Date / Time Performed Performing Clinician Angelique potts POCT-GLUCOSE METER 2020-11-07 16:56:00 Edith Montes [facility] POCT-GLUCOSE METER 2020-11-07 11:26:00 Edtih Montes [facility] POCT-GLUCOSE METER 2020-11-07 06:22:00 Edith Montes [facility] POCT-GLUCOSE METER 2020-11-06 21:48:00 Edith Montes [facility] POCT-GLUCOSE METER 2020-11-06 12:03:00 Simon Edith [facility] LEVETIRACETAM LEVEL 2020-11-05 15:34:00 JuniorbabatundeThang peter [facility] 2D ECHO W/ DOPPLER 2020-11-05 09:17:35 Tarik Mckeon [facility] (CW/PW/COLOR) [facility] C. DIFFICILE GDH TOXIN 2020-11-04 18:21:00 Larissa Youssef [facility] SARS-COV2/RT-PCR ([facility] & 2020-11-04 13:57:00 Oscar Townsend [facility] - REF LABS) [facility] LEVETIRACETAM LEVEL 2020-11-04 13:54:00 Oscar Townsend [facility] PHENYTOIN LEVEL, TOTAL 2020-11-04 13:54:00 Oscar Townsend [facility] XR CHEST 1 VIEW 2020-11-04 12:15:00 Oscar Townsend [facility] PORTABLE/BEDSIDE Medical Center URINALYSIS W/ REFLEX 2020-11-04 11:41:00 Oscar Townsend [facility] URINE CULTURE [facility] URINE CULTURE 2020-11-04 11:41:00 Oscar Townsend [facility] CBC W/PLT COUNT & AUTO 2020-11-04 10:15:00 Oscar Townsend [facility] DIFFERENTIAL [facility] COMPREHENSIVE METABOLIC 2020-11-04 10:15:00 Oscar Townsend [facility] TROPONIN I 2020-11-04 10:15:00 Oscar Townsend [facility] ECG 12-LEAD 2020-11-04 10:13:48 Unknown, Hl7 [facility] ECG 12-LEAD 2020-11-04 10:13:17 Unknown, Hl7 Doctor [facility] REPORT OF PROCEDURE - 2020-11-04 00:00:00 Provider, Default [facility] POCT-GLUCOSE METER 2020-11-01 16:21:00 [facility]SE [facility]ER 2020-11-01 11:55:00 Edith Montes [facility] POCT-GLUCOSE METER 2020-11-01 07:32:00 Edith Montes [facility] CBC W/PLT COUNT & AUTO 2020-11-01 04:25:00 Mehreen Bauer [facility] COMPREHENSIVE METABOLIC 2020-11-01 04:25:00 Mehreen Bauer [facility] POCT-GLUCOSE METER 2020-10-31 20:35:00 Edith Montes [facility] LEVETIRACETAM LEVEL 2020-10-31 16:48:00 Yani Lira I [facility] PHENYTOIN LEVEL, TOTAL 2020-10-31 16:48:00 Yani Lira [facility] BASIC METABOLIC PANEL (7) 2020-10-31 16:48:00 Yani Lira [facility] POCT-GLUCOSE METER 2020-10-31 11:30:00 Edith Montes [facility] POCT-GLUCOSE METER 2020-10-31 07:53:00 [facility] POCT-GLUCOSE METER 2020-10-30 21:34:00 Edith Montes [facility] POCT-GLUCOSE METER 2020-10-30 15:50:00 [facility] POCT-GLUCOSE METER 2020-10-30 11:40:00 Simon [facility] POCT-GLUCOSE METER 2020-10-30 07:54:00 Simon [facility] POCT-GLUCOSE METER 2020-10-29 21:31:00 Edith Montes [facility] URINALYSIS WITH 2020-10-29 17:40:00 Mehreen Bauer [facility] - MICROSCOPIC IF INDICATED [facility] URINALYSIS MICROSCOPIC 2020-10-29 17:40:[address] [facility] ECG 12-LEAD 2020-10-29 16:45:09 Unknown, Hl7 Doctor [facility] ECG 12-LEAD 2020-10-29 16:44:43 Unknown, Hl7 Doctor [facility] POCT-GLUCOSE METER 2020-10-29 16:29:00 [facility] WITHOUT IV 2020-10-29 15:12:00 Thang Figueroa [facility] POCT-GLUCOSE METER 2020-10-29 12:38:00 [facility] CBC W/PLT COUNT & AUTO 2020-10-29 05:31:00 GeovannikalpanaafricaMehreen [facility] BASIC METABOLIC PANEL (7) 2020-10-29 05:31:[address] [facility] POCT-GLUCOSE METER 2020-10-28 21:42:00 Edith Montes [facility] POCT-GLUCOSE METER 2020-10-28 16:36:00 Edith Montes [facility] COMPREHENSIVE METABOLIC 2020-10-28 12:39:00 Edith Montes I [facility] LIPID PANEL 2020-10-28 12:39:00 Edith Montes [facility] MAGNESIUM 2020-10-28 12:39:00 [facility]SE [facility]ER 2020-10-28 11:42:00 [facility] CBC W/PLT COUNT & AUTO 2020-10-28 11:42:00 Edith Montes [facility] - DIFFERENTIAL [facility] LEVETIRACETAM LEVEL 2020-10-28 11:35:00 Thang Figueroa [facility] XR CHEST 1 VIEW 2020-10-28 06:21:00 [facility]red [facility]IDE [facility] HEMOGLOBIN A1C 2020-10-28 06:08:00 [facility] TROPONIN I 2020-10-28 06:08:00 [facility] REPORT OF PROCEDURE - 2020-10-28 00:00:00 Provider, Franco [facility] - ENDOSCOPY SCAN Scanning [facility] Plan of Care Planned Activity Planned Date Details Comments Source Future Scheduled 2028-03-07 DTAP/TDAP/TD VACCINES [facility] Test 00:00:00 (2 - Td) [code = Medical [address] ter DTAP/TDAP/TD VACCINES (2 - Td)] Future Scheduled 2021-07-[address] [facility] - Test 00:00:00 (Season Ended) [code Medical Center = INFLUENZA VACCINE (Season Ended)] Future Scheduled 2020-11-[address] [facility] - Test 00:00:00 (12+) [code = Medical Center DEPRESSION SCREENING (12+)] Future Scheduled 2018-04-[address] [facility] - Test 00:00:00 WELLNESS (YEAR 2 or Medical Center FIRST YEAR if no IPPE) [code = MEDICARE ANNUAL WELLNESS (YEAR 2 or FIRST YEAR if no IPPE)] Future Scheduled 2002 SHINGLES VACCINES ([address] [facility] - Test 00:00:00 of 2) [code = Medical Center SHINGLES VACCINES (1 of 2)] Future Scheduled 1970 HEPATITIS C SCREENING [facility] Test 00:00:00 [code = HEPATITIS C Medical Center SCREENING] Future Scheduled [address] [facility] - Test 00:00:00 malignant neoplasm of Medica l Center breast (procedure) [code = 313964142] Future Scheduled [address] [facility] [facility]ar [facility] - Test 00:00:00 malignant neoplasm of Medica l Center colon (procedure) [code = 655650572] Encounters Start End Encounter Admission Attending Care Care Encounter Source Date/Time Date/Time Type Type Clinicians Facility Department ID 2020-12-25 2020-12-25 Office Kenneth [facility] [id number] 10:15:26 10:51:18 Visit Lucy Lee [id number] [place] [id number] samuel [id number] [address] 2019-06-22 2019-06-22 Outpatient Sahara [place] [id number] [facility] 08:00:00 08:00:00 [facility] ent Clinics 2018-02-04 2018-02-[address] [facility] [id number] 10:19:00 10:19:00 [facility] Results Test Description Test Time Test Comments Results Result Comments Source Levetiracetam level 2020-11-12 09:04:00 Test Item Value Reference Range Interpretation Comme nts Levetiracetam 35.6 mcg/mL Ref erence Range: 12.0-46.0 Toxic (test code = level is not we ll established. Interpretation ) should include a clinical evaluation. For additional information, please refer [email or web address](This link is being p rovided forinformational/educational purposes only.) This test was developed and its analytical perf ormance characteristics have been determined by [employer]. It has not been cleared or approved by theA. This assay has been validated pursuant to the CLIA regulations and is used for clinical purpos es. HUMAIRA (test code Perform = HUMAIRA) ing Lab *S[facility] Valentina Moreno te, [address] KITA Pepper 41200-2 386 T Nicolette granger MD [facility] [id number] 17:51:00 Test Item Value Reference Range Interpretation Comments POC-Glucose Meter (test 136 mg/dL 70-110 H : TE STED AT [facility] code = 1538) [address] [address]448: Skilled Trades Teacher/Techni arlene ID = [id number] for Tolo, Chisa Lab Interpretation (test Abnormal code = 93998-3) [facility]SE [id number] 17:51:00 Test Item Value Reference Range Interpretation Comments POC-GLUCOSE METER 136 mg/dL 70-110 H : [facility] (BEAKER) (test [facility], = 1538) [place] [address]: Skilled Trades Teacher/Techni arlene ID = [id number] for Tolo , Chisa POCT-GLUCOSE [id number] 12:29:00 Test Item Value Reference Range Interpretation Comments POC-GLUCOSE METER 177 mg/dL 70-110 H : [facility] (BEAKER) (test code [facility], = 1538) [place] [address]: Skilled Trades Teacher/Techni arlene ID = [id number] for Bhupendra Starrira POCT-GLUCOSE [id number] 06:55:00 Test Item Value Reference Range Interpretation Comments POC-GLUCOSE METER 110 mg/dL 70-110 : Notified RN/MD: TESTED ([facility]) (test code AT [address] = 1538) [place] [address]: Skilled Trades Teacher/Techni arlene ID = [id number] for Keen , Bela POCT-GLUCOSE [id number] 22:07:00 Test Item Value Reference Range Interpretation Comments POC-GLUCOSE METER 163 mg/dL 70-110 H : Notified RN/MD: [facility] (test code AT [address] = 1538) [place] [address]: Skilled Trades Teacher/Techni arlene ID = [id number] for Keen , Bela POCT-GLUCOSE [id number] 12:24:00 Test Item Value Reference Range Interpretation Comments POC-GLUCOSE METER 126 mg/dL 70-110 H : [facility] T [facility] (BEAKER) (test code [facility], = 1538) [place] [address]: Skilled Trades Teacher/Techni arlene ID = [id number] for Clair Wolfe 2D Echo W/Doppler(CW/PW/Color)2020-11-05 10:49:18Ejection FractionSLEH ECHO HEARTLAB MKCKESSON CPACSInterface, External Ris In - 11/05/2020 10:49 AM C STTransthoracic Echocardiography Report (TTE) Demographics Patient Name CARMEN BARNETT Date of Study 11/05/2020 Gender Female Visit Number [id number] Race Unknown Room Number AS404 Number Date of 1950 Referring Physician Age 70 year(s) Telecommunications Consultant Nat WYNN Interpreting Jeri. MD Liliana. Physician Procedure Type of Study TTE procedure:2DECHO W DOPPLER(CW/PW/COLOR) (Routine) Indications:Chest pain.Clinical HistorythyroidrenalhtnhldcadHeight: 66 inches Weight: 58.06 kg (128 lbs) BSA: 1.65 m^2 BMI: 20.66 kg/m^2HR: 86 bpm BP: 130/70 mmHg Summary Technically difficult study with poor endocardial delineation. Normal LV systolic function withan estimated LVEF of 60-64%. Grade 1 diastolic dysfunction. Normal RV size and systolic function. Mild mitral regurgitation. No evidence of pulmonary hypertension; estimated PA systolic pressure of 23 mm Hg, assuming an RA pressure of 3 mm Hg.. No pericardial effusion. No previous study to compare from . Signature Electronically signedby Kristie Ford MD.(Interpreting physician) on 11/05/2020 10:49 AM Findings Technical Quality: Poor visualization due to lung interface. Left Ventricle The left ventricle is normal in size, wall thickness, and contractility. The visual ejection fraction was estimated 60-64 %. Grade 1 diastolic dysfunction (impaired relaxation and low-normal LA pressure). Left Atrium The left atrium is not well visualized. The left atrium appears normal. Right Ventricle The right ventricular chamber size and systolic function are within normal limits. Right Atrium RA sizeis normal. Aortic Valve Normal AoV structure. There is no aortic stenosis. There is no aortic regurgitation. Mitral Valve Normal MV structure. Mild mitral regurgitation. Tricuspid Valve The tricuspid valve is not well visualized. A trace of tricuspid regurgitation. Estimated peak systolic PA pressure is 20-25 mmHg (normal range) . Pulmonic Valve No evidence of pulmonary regurgitation. Aorta Aortic root size(SInus of Valsalva diameter) is normal . Pericardium No pericardial effusion is visualized. IVC/SVC/PA/PV/Pleural The inferior vena cava size is normal . Chambers/St ructures Left Atrium LA Dimension: 2.95 cm Left Ventricle LVOT Diameter: 1.42 cm Right Atrium RA Systolic Pressure: 10 mmHg Right Ventricle RV Systolic Pressure: 30.94 mmHg Aorta Ao Root S of [place].: 3.08 cm Doppler/Quantitative Measurements Mitral Valve MV Peak E-Wave: 0.41 m/s MV Peak A-Wave: 0.72 m/s P1/2t: 32 msec E/A Ratio: 0.57 Peak Velocity: 0.78 m/s Peak Gradient: 0.67 mmHg Mean Velocity: 0.35 m/s Deceleration Time: 111.4 msec Mean Gradient: 0.75 mmHg Area (continuity): 2 cm^2 MV Area (PHT): 6.88 cm^2 MV VTI: 8.84 cm MV Marcelo. Peak: Aortic Valve Peak Velocity: 1.16 m/s Mean Velocity: 0.78 m/s Peak Gradient: 5.41 mmHg Mean Gradient: 2.97 mmHg AV Area (continuity): 0.84 cm^2 AV VTI: 21.04 cm Cusp Separation: 1.17 cm AV DVI: 0.53 LVOT Peak Velocity: 0.65 m/s Peak Gradient: 1.69 mmHg Mean Velocity: 0.42 m/s Mean Gradient: 0.87 mmHg LVOT Diameter: 1.42 cm LVOT VTI: 11.19 cm LVOT Area: 1.58 cm^2 LVOT SV:17.71 ml LVOT CO: 1.52 l/min LVOT CI: 0.92 l/min/m^2 Tricuspid Valve Estimated RVSP: 30.94 mmHg Estimated RAP: 10 mmHg TR Velocity: 2.29 m/s TR Gradient: 20.94 mmHg Pulmonic Valve Estimated PASP: 30.94 mmHgWestern Medical CenterClostridium difficile GDH [id number] 19:18:00 Test Item Value Reference Range Interpretation Comments C. Difficle Toxin Negative Negative (test code = 7960564688) C. Difficile GDH Positive Negative A C. difficil e Antigen (test code = present but toxin [id number]) not detected. Indicates colonization wi th non-toxigenic strain or level of toxin below detectable levels. No nee d for enteric isolation. Treatment is rarely needed (only when stro ng clinical suspicion for Clostridium difficile infection) HUMAIRA (test code = Testing performed HUMAIRA) by [employer] Rapid Cassette Assay. For GDH, published sensitivity of the assay is 98.7% compared to cytotoxicity testing. For Toxin AB, published sensitivity is 87.8% and specificity 99.4% compared to cytotoxicity testing.Verificati on of kit performance was done by the [facility] Microbiology Lab prior to clinical use. Lab Interpretation Abnormal (test code = 96070-8) [facility] CenterC. DIFFICILE GDH [id number] 19:18:00 Test Item Value Reference Range Interpretation Comments CDT TOXIN (test code Negative Negative = [id number]) CDT GDH ANTIGEN Positive Negative A C. difficile present but (test code = toxin not detec vangie. [id number]) Indicates colon ization with non-toxige ruben strain or level of tox in below detectable leve ls. No need for enteri c isolation. Cecil atment is rarely needed ( only when strong clinical suspicion for Clostridium difficile infection) Testing performed by Alere Rapid Cassette Assay. For GDH, published sensitivity of the assay is 98.7% compared to cytotoxicity testing. For Toxin AB, published sensitivity is 87.8% and specificity 99.4% compared to cytotoxicity testing.Verification of kit performance was done by the [facility] Microbiology Lab prior to clinical use.SARS-CoV2/RT-PCR (Asymptomatic ONLY)2020-11-04 14:58:00 Test Item Value Reference Range Interpretation Comments SARS-COV2/RT-PCR (test code Negative Not Detected, Negative, = 24930-8) See external report for linked test SARS-COV-2 PERFORMING LAB [facility] (test code = 38316-8) [facility])2020-11-04 14:58:00 Test Item Value Reference Range Interpretation Comments SARS-COV2/RT-PCR (test code Negative Not Detected, Negative, = 8011778) See external report for linked test SARS-COV-2 PERFORMING LAB [facility] (test code = 4736547) Phenytoin level, total (dilantin)2020-11-04 14:35:00 Test Item Value Reference Range Interpretation Comments Phenytoin (test code = 13.8 ug/mL 10-20 3968-5) HUMAIRA (test code = HUMAIRA) Skilled Trades Teacher ID - [id number] Lab Interpretation (test Normal code = 36760-1) [facility] [id number] 14:35:00 Test Item Value Reference Range Interpretation Comments PHENYTOIN (DILANTIN) (BEAKER) 13.8 ug/mL 10.0-20.0 (test code = 605) Skilled Trades Teacher ID - [id number], CHEST, 1 VIEW, NON [id number] 12:24:00Reason for exam:->SEIZURESReason for exam:->CHEST PAINShould this be performed at the bedside?->YesS[facility] : 1950 Sex: FFINAL REPORT INDICATION: SEIZURESCHEST PAIN COMPARISON: October 28, 2020 TECHNIQUE: Single frontal view of the chest. FINDINGS: Lungs and pleura: Clear lungs. No effusion.Heart and mediastinum: Normal heart size. Unremarkable mediastinal contours.Osseous structures: No acute abnormality.Other: Stable stimulator apparatus. IMPRESSION: No acute intrathoracic abnormality. Signed: JR Wesley Robert MDReport Verified Date/Time: 11/04/2020 12:24:46 Reading Location: [facility] Reading Room XR chest 1 view portable / [id number] 12:24:00Interface, External Ris In - 11/04/2020 12:32 PM CSTFINAL REPORT INDICATION: SEIZURESCHEST PAIN COMPARISON: October 28, 2020 TECHNIQUE: Single frontal view of the chest. FINDINGS: Lungs and pleura: Clear lungs. No effusion.Heart and mediastinum: Normal heart size. Unremarkable mediastinal contours.Osseous structures: No acute abnormality.Other: Stable stimulator apparatus. IMPRESSION: No acute intrathoracic abnormality. Signed: JR Wesley Robert MDReport Verified Date/Time: 11/04/2020 12:24:46 Reading Location: [facility] + Reflex to [id number] 11:59:00 Test Item Value Reference Range Interpretation Comments Color, UA (test code = Yellow 5778-6) Clarity, UA (test code = Clear 5767-9) Specific Hopkins, UA 1.020 1.001-1.035 (test code = 5811-5) pH, UA (test code = 6.0 5.0-8.0 5803-2) Protein, UA (test code = Negative Negative 05831-9) Glucose, UA (test code = Negative Negative 365) Ketones, UA (test code = Negative Negative 2514-8) Bilirubin, UA (test code Negative Negative = 96162-6) Blood, UA (test code = Negative Negative 56808-6) Nitrite, UA (test code = Positive Negative A 5802-4) Leukocytes, UA (test Moderate Negative A code = 5799-2) Urobilinogen, UA (test 0.2 mg/dL 0.2-1 code = 51579-8) Bacteria, UA (test code Few = 29490-8) RBC, UA (test code = <5 See_Comment [Autom ated message] 799-7) The system Iqua generated this result transmit vangie reference range : /HPF. The refer ence range was not u sed to interpret th is result as normal/abnormal . WBC, UA (test code = 20-50 See_Comment [Autom ated message] 75175-6) The system [employer] generated this result transmit vangie reference range : /HPF. The refer ence range was not u sed to interpret th is result as normal/abnormal . SQUAMOUS EPITHELIAL 5-10 See_Comment [Automa vangie message] (test code = 78678-4) The sy stem which generated this result transmit vangie reference range : /HPF. The refer ence range was not u sed to interpret th is result as normal/abnormal . Specimen Source (test code = 2795) Lab Interpretation (test Abnormal code = 34417-5) [facility] UR[facility] [id number] 11:59:00 Test Item Value Reference Range Interpretation Comments COLOR (BEAKER) (test code = 470) Yellow CLARITY (BEAKER) (test code = 469) Clear SPECIFIC GRAVITY UA (BEAKER) (test 1.020 1.001-1.035 code = 468) PH UA (BEAKER) (test code = 467) 6.0 5.0-8.0 PROTEIN UA (BEAKER) (test code = Negative Negative 464) GLUCOSE UA (BEAKER) (test code = Negative Negative 365) KETONES UA (BEAKER) (test code = Negative Negative 371) BILIRUBIN UA (BEAKER) (test code = Negative Negative 462) BLOOD UA (BEAKER) (test code = Negative Negative 461) NITRITE UA (BEAKER) (test code = Positive Negative A 465) LEUKOCYTE ESTERASE UA (BEAKER) Moderate Negative A (test code = 466) UROBILINOGEN UA (BEAKER) (test 0.2 mg/dL 0.2-1.0 code = 463) BACTERIA (BEAKER) (test code = Few 517) RBC UA-MANUAL (BEAKER) (test code <5 /HPF = 1659) WBC UA-MANUAL (BEAKER) (test code 20-50 /HPF = 1661) SQUAMOUS EPITHELIAL MANUAL 5-10 /HPF (BEAKER) (test code = 1663) SOURCE(BEAKER) (test code = 2795) Troponin [id number] 10:45:00 Test Item Value Reference Range Interpretation Comments Troponin I (test code = <0.03 0-0.15 07889-8) HUMAIRA (test code = HUMAIRA) Troponin I (TnI) levels must be interpreted in the context of the presenting symptoms and the clinical findings. Elevated TnI levels indicate myocardial damage, but are not specific for ischemic heart disease. Elevated TnI levels are seen in patients with other cardiac conditions (including myocarditis and congestive heart failure), and slight TnI elevations occur in patients with other conditions, including sepsis, renal failure, acidosis, acute neurological disease, and persistent tachyarrhythmia.Opera tor ID - [id number] Lab Interpretation (test Normal code = 01077-9) [facility]TRMCLE[facility]ENTERNIN [id number] 10:45:00 Test Item Value Reference Range Interpretation Comments TROPONIN I (MARY) (test code = 397) < ng/mL 0.00-0.15 Troponin I (TnI) levels must be interpreted in the context of the presenting symptoms and the clinical findings. Elevated TnI levels indicate myocardial damage, but are not specific for ischemic heart disease. Elevated TnI levels are seen in patients with other cardiac conditions (including myocarditis and congestive heart failure), and slight TnI elevations occur in patients with other conditions, including sepsis, renal failure, acidosis, acute neurological disease, and persistent tachyarrhythmia.Skilled Trades Teacher ID - [id number] metabolic [id number] 10:39:00 Test Item Value Reference Range Interpretation Comments Protein, Total (test 5.9 See_Comment L [Autom ated code = 2885-2) message] The system which generated this result transmit vangie reference range : 6.0 - 8.5 gm/dL . The reference range was not u sed to interpret th is result as normal/abnormal . Albumin (test code = 3.4 g/dL 3.5-5 L 90847-2) Alkaline Phosphatase 92 U/L 30-115 (test code = 6768-6) Total Bilirubin (test 0.2 mg/dL 0.1-1.2 code = 1975-2) Sodium (test code = 137 meq/L 668-552 5189-2) Potassium (test code 4.3 meq/L 3.6-5.5 = 2823-3) Chloride (test code = 108 meq/L 98-106 H 2074-0) CO2 (test code = 20 meq/L -2027-9) BUN (test code = 17 mg/dL - 3094-0) Creatinine (test code 1.55 mg/dL 0.5-1.2 H = 2160-0) Glucose (test code = 151 mg/dL 70-110 H 2345-7) Calcium (test code = 8.2 mg/dL 8.5-10.5 L 70779-7) AST (test code = 45 U/L 5-40 H 1920-8) ALT (test code = 38 U/L 5-50 1742-6) EGFR (test code = 33 mL/min/1.73 [place] [address]-1) NOT ACCURATE CREATININE CLEARANCE IN PREDICTING GLOMERULAR FILTRATION RATE . ESTIMATED GFR I S NOT APPLICABLE FOR DIALYSIS PATIEN TS. HUMAIRA (test code = HUMAIRA) Skilled Trades Teacher ID - [id number] r ID - [id number] r ID - [id number] r ID - [id number] r ID - [id number] r ID - [id number] r ID - [id number] r ID - [id number] r ID - NYINV274Rvinbgk r ID - [id number] r ID - [id number] r ID - GMMOE006Pndaglc r ID - [id number] r ID - FRIXQ958Eszicxa r ID - JJCOF399Jrmvaol r ID - [id number] r ID - [id number] r ID - AQUAU616Uyihtmm r ID - [id number] Lab Interpretation Abnormal (test code = 90864-7) [facility] CenterCOMPRE[facility] METABOLIC [id number] 10:39:00 Test Item Value Reference Range Interpretation Comments TOTAL PROTEIN 5.9 gm/dL 6.0-8.5 L (BEAKER) (test code = 770) ALBUMIN (BEAKER) 3.4 g/dL 3.5-5.0 L (test code = 1145) ALKALINE PHOSPHATASE 92 U/L 30-115 (BEAKER) (test code = 346) BILIRUBIN TOTAL 0.2 mg/dL 0.1-1.2 (BEAKER) (test code = 377) SODIUM (BEAKER) (test 137 meq/L 135-148 code = 381) POTASSIUM (BEAKER) 4.3 meq/L 3.6-5.5 (test code = 379) CHLORIDE (BEAKER) 108 meq/L 98-106 H (test code = 382) CO2 (BEAKER) (test 20 meq/L 20-29 code = 355) BLOOD UREA NITROGEN 17 mg/dL 10-26 (BEAKER) (test code = 354) CREATININE (BEAKER) 1.55 mg/dL 0.50-1.20 H (test code = 358) GLUCOSE RANDOM 151 mg/dL 70-110 H (BEAKER) (test code = 652) CALCIUM (BEAKER) 8.2 mg/dL 8.5-10.5 L (test code = 697) AST (SGOT) (BEAKER) 45 U/L 5-40 H (test code = 353) ALT (SGPT) (BEAKER) 38 U/L 5-50 (test code = 347) EGFR (BEAKER) (test 33 mL/min/1.73 ESTIMA VANGIE GFR IS code = 1092) sq m NOT ACCURATE CREATININE CLEARANCE IN PREDICTING GLOMERULAR FILTRATION RATE . ESTIMATED GFR I S NOT APPLICABLE FOR DIALYSIS PATIEN TS. Skilled Trades Teacher ID - [id number] ID - [id number] ID - [id number] ID - [id number] ID - GUPJL851Gzikltfe ID - REVLR538Dramoefk ID - TRKOC279Rmhngrpx ID - SXRKA648Nvectejk ID - LZVCT040Ddogkqlx ID - WAWBJ816Gdlzolpk ID - QOTSO271Gejnshmg ID - TIAFZ496Yfmqvlxt ID - DGOVM554Cokhhgju ID - UCORE609Nhvgvudc ID - OQYTW927Hbspogex ID - [id number] ID - [id number] ID - [id number] ID - [id number] with platelet count + automated [id number] 10:19:00 Test Item Value Reference Range Interpretation Comments WBC (test code = 6690-2) 7.0 See_Comment [A utomated message] The system Iqua generated this result transmitted ref erence range: 4.0 - 10 .0 K/L. The refe rence range was not u sed to interpret this result as normal/abnor mal. RBC (test code = 789-8) 4.42 See_Comment [Au tomated message] The system [employer] generated this result transmitted ref erence range: 4.00 - 5 .00 M/L. The refe rence range was not u sed to interpret this result as normal/abnor mal. MCHC (test code = 786-4) 31.6 See_Comment L [A utomated message] The system [employer] generated this result transmitted ref erence range: 32.0 - 3 6.0 GM/DL. The refe rence range was not u sed to interpret this result as normal/abnor mal. Hematocrit (test code = 38.6 % 36-46 4544-3) MCV (test code = 787-2) 87.3 fL 82-99 MCH (test code = 785-6) 27.6 pg 27-33 RDW (test code = 788-0) 14.4 % 12-15 Platelets (test code = 202 See_Comment [Aut omated message] 777-3) The system [employer] generated this result transmitted ref erence range: 150 - 43 0 K/CU MM. The referen ce range was not u sed to interpret this result as normal/abnor mal. MPV (test code = 10.8 fL 6-11.5 63082-8) nRBC (test code = 413) 0 See_Comment [Aut omated message] The system [employer] generated this result transmitted ref erence range: 0 - 0 /1 00 WBC. The refere nce range was not u sed to interpret this result as normal/abnor mal. % Neutros (test code = 68 % 429) % Lymphs (test code = 20 % 430) % Monos (test code = 7 % 431) % Eos (test code = 432) 4 % % Baso (test code = 437) 1 % # Neutros (test code = 4.75 See_Comment [Aut omated message] 670) The system [employer] generated this result transmitted ref erence range: 1.80 - 8 .00 K/L. The refe rence range was not u sed to interpret this result as normal/abnor mal. # Lymphs (test code = 1.39 See_Comment L [Auto mated message] 414) The system [employer] generated this result transmitted ref erence range: 1.48 - 4 .50 K/L. The refe rence range was not u sed to interpret this result as normal/abnor mal. # Monos (test code = 0.46 See_Comment [Autom ated message] 415) The system [employer] generated this result transmitted ref erence range: 0.00 - 1 .30 K/L. The refe rence range was not u sed to interpret this result as normal/abnor mal. # Eos (test code = 416) 0.28 See_Comment [Au tomated message] The system [employer] generated this result transmitted ref erence range: 0.00 - 0 .50 K/L. The refe rence range was not u sed to interpret this result as normal/abnor mal. # Baso (test code = 417) 0.07 See_Comment [A utomated message] The system [employer] generated this result transmitted ref erence range: 0.00 - 0 .20 K/L. The refe rence range was not u sed to interpret this result as normal/abnor mal. Immature 0 % 0-0 Granulocytes-Relative (test code = 2801) Lab Interpretation (test Abnormal code = 28059-9) [facility] W/PLT COUNT & AUTO [id number] 10:19:00 Test Item Value Reference Range Interpretation Comments WHITE BLOOD CELL COUNT (BEAKER) 7.0 K/ L 4.0-10.0 (test code = 775) RED BLOOD CELL COUNT (BEAKER) 4.42 M/ L 4.00-5.00 (test code = 761) HEMOGLOBIN (BEAKER) (test code = 12.2 GM/DL 12.0-15.5 410) HEMATOCRIT (BEAKER) (test code = 38.6 % 36.0-46.0 411) MEAN CORPUSCULAR VOLUME (BEAKER) 87.3 fL 82.0-99.0 (test code = 753) MEAN CORPUSCULAR HEMOGLOBIN 27.6 pg 27.0-33.0 (BEAKER) (test code = 751) MEAN CORPUSCULAR HEMOGLOBIN CONC 31.6 GM/DL 32.0-36.0 L (BEAKER) (test code = 752) RED CELL DISTRIBUTION WIDTH 14.4 % 12.0-15.0 (BEAKER) (test code = 412) PLATELET COUNT (BEAKER) (test 202 K/CU MM 150-430 code = 756) MEAN PLATELET VOLUME (BEAKER) 10.8 fL 6.0-11.5 (test code = 754) NUCLEATED RED BLOOD CELLS 0 /100 WBC 0-0 (BEAKER) (test code = 413) NEUTROPHILS RELATIVE PERCENT 68 % (BEAKER) (test code = 429) LYMPHOCYTES RELATIVE PERCENT 20 % (BEAKER) (test code = 430) MONOCYTES RELATIVE PERCENT 7 % (BEAKER) (test code = 431) EOSINOPHILS RELATIVE PERCENT 4 % (BEAKER) (test code = 432) BASOPHILS RELATIVE PERCENT 1 % (BEAKER) (test code = 437) NEUTROPHILS ABSOLUTE COUNT 4.75 K/ L 1.80-8.00 (BEAKER) (test code = 670) LYMPHOCYTES ABSOLUTE COUNT 1.39 K/ L 1.48-4.50 L (BEAKER) (test code = 414) MONOCYTES ABSOLUTE COUNT (BEAKER) 0.46 K/ L 0.00-1.30 (test code = 415) EOSINOPHILS ABSOLUTE COUNT 0.28 K/ L 0.00-0.50 (BEAKER) (test code = 416) BASOPHILS ABSOLUTE COUNT (BEAKER) 0.07 K/ L 0.00-0.20 (test code = 417) IMMATURE GRANULOCYTES-RELATIVE 0 % 0-0 PERCENT (BEAKER) (test code = 2801) [id number] 00:00:00Ordered by an unspecified provider.[facility] [id number] 17:00:00 Test Item Value Reference Range Interpretation Comments POC-GLUCOSE METER 113 mg/dL 70-110 H : TESTED A T [address] (BEAKER) (test code [address], = 1538) [facility] 77 478: Skilled Trades Teacher/Techni arlene ID = [id number] for Patrica Merchant POCT-GLUCOSE [id number] 12:38:00 Test Item Value Reference Range Interpretation Comments POC-GLUCOSE METER 108 mg/dL 70-110 : TESTED A T [address] (BEAKER) (test code [address], = 1538) [place] [address]: Skilled Trades Teacher/Techni arlene ID = [id number] for Patrica Merchant POCT-GLUCOSE [id number] 09:14:00 Test Item Value Reference Range Interpretation Comments POC-GLUCOSE METER 111 mg/dL 70-110 H : TESTED A T [address] (BEAKER) (test code [address], = 1538) [place] [address] 478: Skilled Trades Teacher/Techni arlene ID = [id number] for Patrica Merchant COMPREHENSIVE METABOLIC [id number] 05:26:00 Test Item Value Reference Range Interpretation Comments TOTAL PROTEIN 5.8 gm/dL 6.0-8.5 L (BEAKER) (test code = 770) ALBUMIN (BEAKER) 3.2 g/dL 3.5-5.0 L (test code = 1145) ALKALINE PHOSPHATASE 88 U/L 30-115 (BEAKER) (test code = 346) BILIRUBIN TOTAL 0.2 mg/dL 0.1-1.2 (BEAKER) (test code = 377) SODIUM (BEAKER) (test 141 meq/L 135-148 code = 381) POTASSIUM (BEAKER) 4.8 meq/L 3.6-5.5 (test code = 379) CHLORIDE (BEAKER) 114 meq/L 98-106 H (test code = 382) CO2 (BEAKER) (test 18 meq/L 20-29 L code = 355) BLOOD UREA NITROGEN 9 mg/dL 10-26 L (BEAKER) (test code = 354) CREATININE (BEAKER) 1.22 mg/dL 0.50-1.20 H (test code = 358) GLUCOSE RANDOM 115 mg/dL 70-110 H (BEAKER) (test code = 652) CALCIUM (BEAKER) 7.7 mg/dL 8.5-10.5 L (test code = 697) AST (SGOT) (BEAKER) 18 U/L 5-40 (test code = 353) ALT (SGPT) (BEAKER) 10 U/L 5-50 (test code = 347) EGFR (BEAKER) (test 44 mL/min/1.73 ESTIMA VANGIE GFR IS code = 1092) sq m NOT ACCURATE CREATININE CLEARANCE IN PREDICTING GLOMERULAR FILTRATION RATE . ESTIMATED GFR I S NOT APPLICABLE FOR DIALYSIS PATIEN TS. Skilled Trades Teacher ID - ANSBERTOGOperator ID - ANSBERTOGOperator ID - ANSBERTOGOperator ID - ANSBERTOGOperatorID - ANSBERTOGOperator ID - ANSBERTOGOperator ID - ANSBERTOGOperator ID - ANSBERTOGOperator ID - ANSBERTOGOperator ID - ANSBERTOGOperator ID - ANSBERTOGOperator ID - ANSBERTOGOperator ID - ANSBERTOGOperator ID - ANSBERTOGOperator ID - ANSBERTOGOperator ID - ANSBERTOGOperator ID - ANSBERTOGOperator ID - ANSBERTOGOperator ID - ANSBERTOG CBC W/PLT COUNT & AUTO [id number] 04:44:00 Test Item Value Reference Range Interpretation Comments WHITE BLOOD CELL COUNT (BEAKER) 6.8 K/ L 4.0-10.0 (test code = 775) RED BLOOD CELL COUNT (BEAKER) 4.35 M/ L 4.00-5.00 (test code = 761) HEMOGLOBIN (BEAKER) (test code = 12.1 GM/DL 12.0-15.5 410) HEMATOCRIT (BEAKER) (test code = 38.1 % 36.0-46.0 411) MEAN CORPUSCULAR VOLUME (BEAKER) 87.6 fL 82.0-99.0 (test code = 753) MEAN CORPUSCULAR HEMOGLOBIN 27.8 pg 27.0-33.0 (BEAKER) (test code = 751) MEAN CORPUSCULAR HEMOGLOBIN CONC 31.8 GM/DL 32.0-36.0 L (BEAKER) (test code = 752) RED CELL DISTRIBUTION WIDTH 14.4 % 12.0-15.0 (BEAKER) (test code = 412) PLATELET COUNT (BEAKER) (test 181 K/CU MM 150-430 code = 756) MEAN PLATELET VOLUME (BEAKER) 10.8 fL 6.0-11.5 (test code = 754) NUCLEATED RED BLOOD CELLS 0 /100 WBC 0-0 (BEAKER) (test code = 413) NEUTROPHILS RELATIVE PERCENT 64 % (BEAKER) (test code = 429) LYMPHOCYTES RELATIVE PERCENT 18 % (BEAKER) (test code = 430) MONOCYTES RELATIVE PERCENT 8 % (BEAKER) (test code = 431) EOSINOPHILS RELATIVE PERCENT 8 % (BEAKER) (test code = 432) BASOPHILS RELATIVE PERCENT 2 % (BEAKER) (test code = 437) NEUTROPHILS ABSOLUTE COUNT 4.34 K/ L 1.80-8.00 (BEAKER) (test code = 670) LYMPHOCYTES ABSOLUTE COUNT 1.24 K/ L 1.48-4.50 L (BEAKER) (test code = 414) MONOCYTES ABSOLUTE COUNT (BEAKER) 0.54 K/ L 0.00-1.30 (test code = 415) EOSINOPHILS ABSOLUTE COUNT 0.56 K/ L 0.00-0.50 H (BEAKER) (test code = 416) BASOPHILS ABSOLUTE COUNT (BEAKER) 0.10 K/ L 0.00-0.20 (test code = 417) IMMATURE GRANULOCYTES-RELATIVE 0 % 0-0 PERCENT (BEAKER) (test code = 2801) POCT-GLUCOSE [id number] 21:03:00 Test Item Value Reference Range Interpretation Comments POC-GLUCOSE METER 106 mg/dL 70-110 : TESTED A T [facility] [address] (BEAKER) (test code [facility] [address], = 1538) [facility] 77 478: Skilled Trades Teacher/Techni arlene ID = [id number] for Will ia, [place] PHENYTOIN LEVEL, [id number] 17:21:00 Test Item Value Reference Range Interpretation Comments PHENYTOIN (DILANTIN) (BEAKER) 12.6 ug/mL 10.0-20.0 (test code = 605) Skilled Trades Teacher ID - [id number] Metabolic [id number] 17:13:00 Test Item Value Reference Range Interpretation Comments Sodium (test code = 140 meq/L 083-951 9853-2) Potassium (test code = 5.2 meq/L 3.6-5.5 Speci men slightly 2823-3) hemolyzed Chloride (test code = 113 meq/L 98-106 H 2075-0) CO2 (test code = 18 meq/L 20-29 L 8-9) BUN (test code = 11 mg/dL 10-26 3094-0) Creatinine (test code 1.13 mg/dL 0.5-1.2 Specim en slightly = 2160-0) hemolyzed Glucose (test code = 83 mg/dL 70-110 2345-7) Calcium (test code = 8.0 mg/dL 8.5-10.5 L 84084-4) EGFR (test code = 48 mL/min/1.73 [place] [address]-4) NOT ACCURATE CREATININE CLEARANCE IN PREDICTING GLOMERULAR FILTRATION RATE . ESTIMATED GFR I S NOT APPLICABLE FOR DIALYSIS PATIENTS. HUMAIRA (test code = HUMAIRA) Skilled Trades Teacher ID - [id number] ID - bfha37Exluquum ID - sdiq98Qhqrrvxe ID - wfda62Nggfzntp ID - yirc39Nbwjoxtu ID - dczz26Gjwmwwuo ID - qqpe59Tkzlisnb ID - ffrs80Qtylblex ID - eifh88Knrizcyu ID - jaop82Onelsswl ID - xeba40Xllfyvhg ID - tkdy31Kziirkev ID - zdxs12 Lab Interpretation Abnormal (test code = 21772-8) [facility] METABOLIC [id number] 17:13:00 Test Item Value Reference Range Interpretation Comments SODIUM (BEAKER) 140 meq/L 135-148 (test code = 381) POTASSIUM (BEAKER) 5.2 meq/L 3.6-5.5 Specimen slightly (test code = 379) hemolyzed CHLORIDE (BEAKER) 113 meq/L 98-106 H (test code = 382) CO2 (BEAKER) (test 18 meq/L 20-29 L code = 355) BLOOD UREA NITROGEN 11 mg/dL 10-26 (BEAKER) (test code = 354) CREATININE (BEAKER) 1.13 mg/dL 0.50-1.20 Specimen slightly (test code = 358) hemolyzed GLUCOSE RANDOM 83 mg/dL 70-110 (BEAKER) (test code = 652) CALCIUM (BEAKER) 8.0 mg/dL 8.5-10.5 L (test code = 697) EGFR (BEAKER) (test 48 mL/min/1.73 ESTIMA VANGIE GFR IS code = 1092) sq m NOT ACCURATE CREATININE CLEARANCE IN PREDICTING GLOMERULAR FILTRATION RATE . ESTIMATED GFR I S NOT APPLICABLE FOR DIALYSIS PATIEN TS. Skilled Trades Teacher ID - [id number] ID - mztp16Eeojsdao ID - flwu41Gkdrkjfi ID - wlir97Kcxzassz ID - lzqx20Rdvzxmop ID - cwps15Mlbrafpl ID - jwfj61Omfiunom ID - vbja70Uvlgvauk ID - kquf77Miqfdrzr ID - ohlb57Embjsziy ID - tkvo33Vwbotmes ID - mhyy76Rkdapxwx ID - mxrt35NWOV-ZLLMOYD [id number] 12:43:00 Test Item Value Reference Range Interpretation Comments POC-GLUCOSE METER 164 mg/dL 70-110 H : TESTED A T [address] [address] (BEAKER) (test code [address], = 1538) [place] [id number]: Skilled Trades Teacher/Techni arlene ID = [id number] for Rahul h, Khushi POCT-GLUCOSE [id number] 09:12:00 Test Item Value Reference Range Interpretation Comments POC-GLUCOSE METER 65 mg/dL 70-110 L : TESTED A T [facility] [address] (BEAKER) (test code = [address], 1538) [place] [id number]: Skilled Trades Teacher/Techni arlene ID = [id number] for Rahul h, Khushi POCT-GLUCOSE [id number] 21:46:00 Test Item Value Reference Range Interpretation Comments POC-GLUCOSE METER 107 mg/dL 70-110 : TESTED A T [facility] [address] (BEAKER) (test code [address], = 1538) [place] [id number]: Skilled Trades Teacher/Techni arlene ID = [id number] for Anshul haroldo Lucia POCT-GLUCOSE [id number] 16:10:00 Test Item Value Reference Range Interpretation Comments POC-GLUCOSE METER 115 mg/dL 70-110 H : TESTED A T [facility] [address] (BEAKER) (test code [address], = 1538) [place] [id number]: Skilled Trades Teacher/Techni arlene ID = [id number] for Buff mary, [place] POCT-GLUCOSE [id number] 12:01:00 Test Item Value Reference Range Interpretation Comments POC-GLUCOSE METER 84 mg/dL 70-110 : TESTED A T [facility] [address] (BEAKER) (test code = [address], 1538) [place] [id number]: Skilled Trades Teacher/Techni arlene ID = [id number] for Jaqueline hernandez [place] POCT-GLUCOSE [id number] 08:19:00 Test Item Value Reference Range Interpretation Comments POC-GLUCOSE METER 101 mg/dL 70-110 : TESTED A T [facility] [address] (BEAKER) (test code [address], = 1538) [facility] [id number]: Skilled Trades Teacher/Techni arlene ID = [id number] for Buff mary, [place] POCT-GLUCOSE [id number] 21:45:00 Test Item Value Reference Range Interpretation Comments POC-GLUCOSE METER 87 mg/dL 70-110 : TESTED A T [facility] [address] (BEAKER) (test code = [address], 1538) [place] [id number]: Skilled Trades Teacher/Techni arlene ID = [id number] for Lucia Brannon Urinalysis Microscopic [id number] 18:01:00 Test Item Value Reference Range Interpretation Comments RBC, UA (test code = <5 See_Comment [Autom ated message] 799-7) The system [employer] generated this result transmitted ref erence range: /HPF. Th e reference range was not used to int erpret this result as normal/abnormal . WBC, UA (test code = 20-50 See_Comment [Autom ated message] 21353-6) The system Iqua generated this result transmitted ref erence range: /HPF. Th e reference range was not used to int erpret this result as normal/abnormal . Bacteria, UA (test Occasional code = 78526-5) SQUAMOUS EPITHELIAL <5 See_Comment [Automa vangie message] (test code = 96201-4) The sy stem which generated this result transmitted ref erence range: /HPF. Th e reference range was not used to int erpret this result as normal/abnormal . WBC CASTS (test code 0-5 See_Comment [Autom ated message] = 5820-6) The system Iqua generated this result transmitted ref erence range: /LPF. Th e reference range was not used to int erpret this result as normal/abnormal . [facility] [id number] 18:01:00 Test Item Value Reference Range Interpretation Comments RBC UA-MANUAL (BEAKER) (test code <5 /HPF = 1659) WBC UA-MANUAL (BEAKER) (test code 20-50 /HPF = 1661) BACTERIA (BEAKER) (test code = Occasional 517) SQUAMOUS EPITHELIAL MANUAL <5 /HPF (BEAKER) (test code = 1663) WBC CASTS MANUAL (BEAKER) (test 0-5 /LPF code = 1668) Urinalysis with Microscopic If [id number] 17:56:00 Test Item Value Reference Range Interpretation Comments Color, UA (test code = 5778-6) Yellow Clarity, UA (test code = 5767-9) Clear Specific Hopkins, UA (test code = 1.015 1.001-1.035 5811-5) pH, UA (test code = 5803-2) 7.5 5.0-8.0 Protein, UA (test code = 82667-4) Negative Negative Glucose, UA (test code = 365) Negative Negative Ketones, UA (test code = 2514-8) Negative Negative Bilirubin, UA (test code = 87619-1) Negative Negative Blood, UA (test code = 12820-9) Trace Negative A Nitrite, UA (test code = 5802-4) Positive Negative A Leukocytes, UA (test code = 5799-2) Large Negative A Urobilinogen, UA (test code = 0.2 mg/dL 0.2-1 31983-4) Specimen Source (test code = 2795) Lab Interpretation (test code = Abnormal 01066-1) [facility] IF [id number] 17:56:00 Test Item Value Reference Range Interpretation Comments COLOR (BEAKER) (test code = 470) Yellow CLARITY (BEAKER) (test code = 469) Clear SPECIFIC GRAVITY UA (BEAKER) (test 1.015 1.001-1.035 code = 468) PH UA (BEAKER) (test code = 467) 7.5 5.0-8.0 PROTEIN UA (BEAKER) (test code = Negative Negative 464) GLUCOSE UA (BEAKER) (test code = Negative Negative 365) KETONES UA (BEAKER) (test code = Negative Negative 371) BILIRUBIN UA (BEAKER) (test code = Negative Negative 462) BLOOD UA (BEAKER) (test code = 461) Trace Negative A NITRITE UA (BEAKER) (test code = Positive Negative A 465) LEUKOCYTE ESTERASE UA (BEAKER) Large Negative A (test code = 466) UROBILINOGEN UA (BEAKER) (test code 0.2 mg/dL 0.2-1.0 = 463) SOURCE(BEAKER) (test code = 2795) POCT-GLUCOSE [id number] 16:42:00 Test Item Value Reference Range Interpretation Comments POC-GLUCOSE METER 145 mg/dL 70-110 H : TESTED A T [facility] 1317 (BEAKER) (test code [address], = 1538) [facility] 77 [address]: 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 Axialimages were reconstructed using a bone algorithm. DOSE REDUCTION: Dose modulation, iterative reconstruction, and/or weight-based adjustment of the mA/kV was utilized to reduce the radiation dose to as low as reasonably achievable. COMPARISON: None. FINDINGS: Intracranial: Bilateral frontal approach DBS leads are present and terminate in the region of the subthalamic nuclei. No intracranial hemorrhageor abnormal extra-axial collection. No evidence of acute territorial infarct. No mass effect. No hydr ocephalus. Osseous structures: No fracture. No suspicious lesion. Paranasal sinuses and mastoid air cells: No evidence of sinusitis. Mastoids are clear. Orbital contents: Globes are intact. IMPRESSION:1.Bilateral DBS leads are in place.2.No acute intracranial hemorrhage, mass effect, or CT evidence of territorial infarct. If there is persistent clinical concern for intracranial pathology, MR examination is recommended for further characterization. Signed: Lucia Guillory Verified Date/Time: 10/29/2020 15:20:32 CT brain without IV [id number] 15:20:00Interface, External Ris In - 10/29/2020 3:[address], BRAIN, WITHOUT CONTRAST INDICATION: Seizure, abnormal neuro exam TECHNIQUE: Noncontrast axial imaging was obtained from the vertex to the skull base. Axial images were reconstructed using a bone algorithm. DOSEREDUCTION: Dose modulation, iterative reconstruction, and/or weight-based adjustment of the mA/kV was utilized to reduce the radiation dose to as low as reasonably achievable. COMPARISON: None. FINDINGS: Intracranial: Bilateral frontal approach DBS leads are present and terminate in the region of the subthalamic nuclei. No intracranial hemorrhage or abnormal extra-axial collection. No evidence of acute territorial infarct. No mass effect. No hydrocephalus. Osseous structures: No fracture. No suspicious lesion. Paranasal sinuses and mastoid air cells: No evidence of sinusitis. Mastoids are clear. Orb ital contents: Globes are intact. IMPRESSION: 1.Bilateral DBS leads are in place.2.No acute intracranial hemorrhage, mass effect, or CT evidence of territorial infarct. If there is persistent clinical concern for intracranial pathology, MR examination is recommended for further characterization. Signed: Lucia Guillory Verified Date/Time: 10/29/2020 15:20:32 [facility] [id number] 12:52:00 Test Item Value Reference Range Interpretation Comments POC-GLUCOSE METER 132 mg/dL 70-110 H : TESTED A T [facility] 1317 (BEAKER) (test code [address], = 1538) [facility] 77 478: Skilled Trades Teacher/Techni arlene ID = [id number] for Anisa Oglesby BASIC METABOLIC [id number] 06:18:00 Test Item Value Reference Range Interpretation Comments SODIUM (BEAKER) 141 meq/L 135-148 (test code = 381) POTASSIUM (BEAKER) 4.3 meq/L 3.6-5.5 (test code = 379) CHLORIDE (BEAKER) 112 meq/L 98-106 H (test code = 382) CO2 (BEAKER) (test 21 meq/L 20-29 code = 355) BLOOD UREA NITROGEN 17 mg/dL 10-26 (BEAKER) (test code = 354) CREATININE (BEAKER) 1.32 mg/dL 0.50-1.20 H (test code = 358) GLUCOSE RANDOM 104 mg/dL 70-110 (BEAKER) (test code = 652) CALCIUM (BEAKER) 7.6 mg/dL 8.5-10.5 L (test code = 697) EGFR (BEAKER) (test 40 mL/min/1.73 ESTIMA VANGIE GFR IS code = 1092) sq m NOT ACCURATE CREATININE CLEARANCE IN PREDICTING GLOMERULAR FILTRATION RATE . ESTIMATED GFR I S NOT APPLICABLE FOR DIALYSIS PATIEN TS. Skilled Trades Teacher ID - [id number] ID - [id number] ID - [id number] ID - [id number] ID - [id number] ID - [id number] ID - [id number] ID - [id number] ID - [id number] ID - [id number] ID - [id number] ID - [id number] ID - [id number] W/PLT COUNT & AUTO [id number] 05:44:00 Test Item Value Reference Range Interpretation Comments WHITE BLOOD CELL COUNT (BEAKER) 6.5 K/ L 4.0-10.0 (test code = 775) RED BLOOD CELL COUNT (BEAKER) 4.16 M/ L 4.00-5.00 (test code = 761) HEMOGLOBIN (BEAKER) (test code = 11.4 GM/DL 12.0-15.5 L 410) HEMATOCRIT (BEAKER) (test code = 36.4 % 36.0-46.0 411) MEAN CORPUSCULAR VOLUME (BEAKER) 87.5 fL 82.0-99.0 (test code = 753) MEAN CORPUSCULAR HEMOGLOBIN 27.4 pg 27.0-33.0 (BEAKER) (test code = 751) MEAN CORPUSCULAR HEMOGLOBIN CONC 31.3 GM/DL 32.0-36.0 L (BEAKER) (test code = 752) RED CELL DISTRIBUTION WIDTH 14.2 % 12.0-15.0 (BEAKER) (test code = 412) PLATELET COUNT (BEAKER) (test 157 K/CU MM 150-430 code = 756) MEAN PLATELET VOLUME (BEAKER) 10.7 fL 6.0-11.5 (test code = 754) NUCLEATED RED BLOOD CELLS 0 /100 WBC 0-0 (BEAKER) (test code = 413) NEUTROPHILS RELATIVE PERCENT 65 % (BEAKER) (test code = 429) LYMPHOCYTES RELATIVE PERCENT 18 % (BEAKER) (test code = 430) MONOCYTES RELATIVE PERCENT 9 % (BEAKER) (test code = 431) EOSINOPHILS RELATIVE PERCENT 7 % (BEAKER) (test code = 432) BASOPHILS RELATIVE PERCENT 1 % (BEAKER) (test code = 437) NEUTROPHILS ABSOLUTE COUNT 4.16 K/ L 1.80-8.00 (BEAKER) (test code = 670) LYMPHOCYTES ABSOLUTE COUNT 1.15 K/ L 1.48-4.50 L (BEAKER) (test code = 414) MONOCYTES ABSOLUTE COUNT (BEAKER) 0.59 K/ L 0.00-1.30 (test code = 415) EOSINOPHILS ABSOLUTE COUNT 0.46 K/ L 0.00-0.50 (BEAKER) (test code = 416) BASOPHILS ABSOLUTE COUNT (BEAKER) 0.08 K/ L 0.00-0.20 (test code = 417) IMMATURE GRANULOCYTES-RELATIVE 0 % 0-0 PERCENT (BEAKER) (test code = 2801) POCT-GLUCOSE [id number] 21:55:00 Test Item Value Reference Range Interpretation Comments POC-GLUCOSE METER 109 mg/dL 70-110 : TESTED A T [facility] [address]17 (BEAKER) (test code [address], = 1538) [facility] 77 478: Skilled Trades Teacher/Techni arlene ID = [id number] for Vianey Bo POCT-GLUCOSE [id number] 16:49:00 Test Item Value Reference Range Interpretation Comments POC-GLUCOSE METER 149 mg/dL 70-110 H : Notified RN/MD: TESTED (BEAKER) (test code AT [facility] [address] = 1538) [place] [address]: Skilled Trades Teacher/Techni arlene ID = [id number] for Lydia Graham Lipid [id number] 13:06:00 Test Item Value Reference Range Interpretation Comments Triglycerides (test 223 mg/dL Specimen code = 2571-8) slightly hemolyzed Cholesterol (test 182 mg/dL Specimen code = 2093-3) slightly hemolyzed HDL (test code = 26 mg/dL 5-9) LDL Calculated (test 111 mg/dL code = 68706-8) HUMAIRA (test code = Triglyceride HUMAIRA) Reference Range: Low Risk <150 Borderline 150-199 High Risk 200-499 Very High Risk >=500 Cholesterol Reference Range: Low Risk <200 Borderline 200-239 High Risk >240 HDL Cholesterol Reference Range: Low Risk >=60 High Risk <40 LDL Cholesterol Reference Range: Optimal <100 Near Optimal 100-129 Borderline 130-159 High 160-189 Very High >=190 Skilled Trades Teacher ID - [id number] ID - [id number] ID - [id number] [facility] Center[facility]IPID [id number] 13:06:00 Test Item Value Reference Range Interpretation Comments TRIGLYCERIDES (BEAKER) 223 mg/dL Speci men slightly (test code = 540) hemolyzed CHOLESTEROL (BEAKER) 182 mg/dL Specime n slightly (test code = 631) hemolyzed HDL CHOLESTEROL (BEAKER) 26 mg/dL (test code = 976) LDL CHOLESTEROL 111 mg/dL CALCULATED (BEAKER) (test code = 633) Triglyceride Reference Range: Low Risk <150 Borderline 150-199 High Risk 200-499 Very High Risk >=500Cholesterol Reference Range: Low Risk <200 Borderline 200-239 High Risk >240HDL Cholesterol Reference Range: Low Risk >=60 High Risk <40LDL Cholesterol Reference Range: Optimal <100 Near Optimal 100-129 Borderline 130-159 High 160-189 Very High >=190 Skilled Trades Teacher ID - [id number] ID - [id number] ID - [id number] 2020-10-28 13:04:00 Test Item Value Reference Range Interpretation Comments Magnesium (test code = 1.5 mg/dL 1.5-3 Speci men 09553-4) slightly hemolyzed HUMAIRA (test code = HUMAIRA) Skilled Trades Teacher ID - [id number] ID - [id number] ID - [id number] ID - [id number] Lab Interpretation Normal (test code = 96238-9) [facility]PRE[facility] METABOLIC [id number] 13:04:00 Test Item Value Reference Range Interpretation Comments TOTAL PROTEIN 6.1 gm/dL 6.0-8.5 Specimen sligh tly (BEAKER) (test code = hemoly zed 770) ALBUMIN (BEAKER) 3.4 g/dL 3.5-5.0 L Specimen sl ightly (test code = 1145) hemolyzed ALKALINE PHOSPHATASE 90 U/L 30-115 (BEAKER) (test code = 346) BILIRUBIN TOTAL 0.4 mg/dL 0.1-1.2 Specimen sli ghtly (BEAKER) (test code = hemoly zed 377) SODIUM (BEAKER) (test 139 meq/L 135-148 code = 381) POTASSIUM (BEAKER) 3.9 meq/L 3.6-5.5 Specimen slightly (test code = 379) hemolyzed CHLORIDE (BEAKER) 107 meq/L 98-106 H (test code = 382) CO2 (BEAKER) (test 21 meq/L 20-29 code = 355) BLOOD UREA NITROGEN 19 mg/dL 10-26 (BEAKER) (test code = 354) CREATININE (BEAKER) 1.41 mg/dL 0.50-1.20 H Specimen slightly (test code = 358) hemolyzed GLUCOSE RANDOM 123 mg/dL 70-110 H (BEAKER) (test code = 652) CALCIUM (BEAKER) 8.1 mg/dL 8.5-10.5 L (test code = 697) AST (SGOT) (BEAKER) 16 U/L 5-40 Specimen slightly (test code = 353) hemolyzed ALT (SGPT) (BEAKER) 8 U/L 5-50 Specimen slightly (test code = 347) hemolyzed EGFR (BEAKER) (test 37 mL/min/1.73 ESTIMA VANGIE GFR IS code = 1092) sq m NOT ACCURATE CREATININE CLEARANCE IN PREDICTING GLOMERULAR FILTRATION RATE . ESTIMATED GFR I S NOT APPLICABLE FOR DIALYSIS PATIEN TS. Skilled Trades Teacher ID - [id number] ID - [id number] ID - [id number] ID - [id number] ID - [id number] ID - [id number] ID - HKRX52Rtttlaup ID - [id number] ID - VWZW01Jybohphg ID - VMLS87Hwwxifco ID - VGQK60Emwprzpc ID - SRHV71Qgqtxiox ID - [id number] ID - [id number] ID - ZGED30Tbfmkndv ID - [id number] 13:04:00 Test Item Value Reference Range Interpretation Comments MAGNESIUM (BEAKER) 1.5 mg/dL 1.5-3.0 Specimen slightly (test code = 627) hemolyzed Skilled Trades Teacher ID - [id number] ID - [id number] ID - [id number] ID - [id number] POCT-GLUCOSE [id number] 12:12:00 Test Item Value Reference Range Interpretation Comments POC-GLUCOSE METER 99 mg/dL 70-110 : Notified RN/MD: TESTED (BEAKER) (test code = AT SLS L [address] [facility] 1538) [facility] [address]: Skilled Trades Teacher/Techni arlene ID = [id number] for Yasmeen Grahamjimi CBC W/PLT COUNT & AUTO [id number] 11:52:00 Test Item Value Reference Range Interpretation Comments WHITE BLOOD CELL COUNT (BEAKER) 7.1 K/ L 4.0-10.0 (test code = 775) RED BLOOD CELL COUNT (BEAKER) 4.41 M/ L 4.00-5.00 (test code = 761) HEMOGLOBIN (BEAKER) (test code = 12.3 GM/DL 12.0-15.5 410) HEMATOCRIT (BEAKER) (test code = 38.3 % 36.0-46.0 411) MEAN CORPUSCULAR VOLUME (BEAKER) 86.8 fL 82.0-99.0 (test code = 753) MEAN CORPUSCULAR HEMOGLOBIN 27.9 pg 27.0-33.0 (BEAKER) (test code = 751) MEAN CORPUSCULAR HEMOGLOBIN CONC 32.1 GM/DL 32.0-36.0 (BEAKER) (test code = 752) RED CELL DISTRIBUTION WIDTH 14.1 % 12.0-15.0 (BEAKER) (test code = 412) PLATELET COUNT (BEAKER) (test 190 K/CU MM 150-430 code = 756) MEAN PLATELET VOLUME (BEAKER) 11.5 fL 6.0-11.5 (test code = 754) NUCLEATED RED BLOOD CELLS 0 /100 WBC 0-0 (BEAKER) (test code = 413) NEUTROPHILS RELATIVE PERCENT 75 % (BEAKER) (test code = 429) LYMPHOCYTES RELATIVE PERCENT 14 % (BEAKER) (test code = 430) MONOCYTES RELATIVE PERCENT 7 % (BEAKER) (test code = 431) EOSINOPHILS RELATIVE PERCENT 4 % (BEAKER) (test code = 432) BASOPHILS RELATIVE PERCENT 1 % (BEAKER) (test code = 437) NEUTROPHILS ABSOLUTE COUNT 5.36 K/ L 1.80-8.00 (BEAKER) (test code = 670) LYMPHOCYTES ABSOLUTE COUNT 0.97 K/ L 1.48-4.50 L (BEAKER) (test code = 414) MONOCYTES ABSOLUTE COUNT (BEAKER) 0.48 K/ L 0.00-1.30 (test code = 415) EOSINOPHILS ABSOLUTE COUNT 0.26 K/ L 0.00-0.50 (BEAKER) (test code = 416) BASOPHILS ABSOLUTE COUNT (BEAKER) 0.05 K/ L 0.00-0.20 (test code = 417) IMMATURE GRANULOCYTES-RELATIVE 0 % 0-0 PERCENT (BEAKER) (test code = 2801) TROPONIN [id number] 07:53:00 Test Item Value Reference Range Interpretation Comments TROPONIN I (BEAKER) (test code = 397) < ng/mL 0.00-0.15 Troponin I (TnI) levels must be interpreted in the context of the presenting symptoms and the clinical findings. Elevated TnI levels indicate myocardial damage, but are not specific for ischemic heart disease. Elevated TnI levels are seen in patients with other cardiac conditions (including myocarditis and congestive heart failure), and slight TnI elevations occur in patients with other conditions, including sepsis, renal failure, acidosis, acute neurological disease, and persistent tachyarrhythmia.Skilled Trades Teacher ID - [id number], CHEST, 1 VIEW, NON [id number] 07:31:00Reason for exam:->pneumoniaShould this be performed at the bedside?->Yes [facility] 1950 Sex: FFINAL REPORT RAD, CHEST, 1 VIEW, NON DEPT INDICATION: pneumonia COMPARISON: None FINDINGS: Portable frontal view of the chest. IMPRESSION: Support Lines: Generator overlies the left thorax.. Lungs and pleura: Left retrocardiac airspace disease (with focal pneumonia in this area not excluded) although this may represent retrocardiac atelectasis Heart and mediastinum: Nor mal contours.Additional findings: None. Signed: Sangeeta Kelsey Verified Date/Time: 10/28/2020 07:31:30 Reading Location: [facility] Radiology Reading Room Hemoglobin [id number] 07:30:00 Test Item Value Reference Range Interpretation Comments Hemoglobin A1C (test code 13.4 % 4.3-6.1 H = 4548-4) HUMAIRA (test code = HUMAIRA) Skilled Trades Teacher ID - [id number] Lab Interpretation (test Abnormal code = 03961-9) [facility]HEMO[facility] [id number] 07:30:00 Test Item Value Reference Range Interpretation Comments HEMOGLOBIN A1C (BEAKER) (test code = 13.4 % 4.3-6.1 H 368) Skilled Trades Teacher ID - [id number] METABOLIC [id number] 09:59:00 Test Item Value Reference Range Interpretation Comments [...] H BLOOD UREA NITROGEN (test code = 24 MG/DL 7-18 H BUN) GLOMERULAR FILTRATION RATE (test 40 estGFR >60 L code = GFR) CREATININE (test code = CREAT) 1.4 MG/DL 0.6-1.0 H TOTAL PROTEIN (test code = PROT) 6.2 G/DL 6.4-8.2 L ALBUMIN (test code = ALB) 2.5 G/DL 3.4-5.0 L GLOBULIN (test code = GLOB) 3.7 GM/dL ALBUMIN/GLOBULIN RATIO (test 0.7 RATIO 1.2-2.2 L code = A/G) CALCIUM (test code = CA) 8.2 MG/DL 8.5-10.1 L BILIRUBIN TOTAL (test code = 0.20 MG/DL 0.2-1.2 N BILT) SGOT/AST (test code = AST) 15 Unit/L 15-37 N SGPT/ALT (test code = ALT) 13 Unit/L 12-78 N ALKALINE PHOSPHATASE TOTAL (test 92 Unit/L 45-117 N code = ALKP) CBC W/AUTO [id number] 09:46:00 Test Item Value Reference Range Interpretation [...] NO DIFF/SCN CRITERIA = MDIFF) GLUCOSE BEDSIDE [id number] 20:26:00 Test Item Value Reference Range Interpretation Comments GLUCOSE BEDSIDE TESTING (test code = 75 mg/dL 70-110 N GLUBED) GLUCOSE BEDSIDE [id number] 17:40:00 Test Item Value Reference Range Interpretation Comments GLUCOSE BEDSIDE TESTING (test code = 93 mg/dL 70-110 N GLUBED) BASIC METABOLIC [id number] 06:12:00 Test Item Value Reference Range Interpretation [...] CA) 8.7 MG/DL 8.5-10.1 N CBC W/AUTO [id number] 06:03:00 Test Item Value Reference Range Interpretation [...] code NO DIFF/SCN CRITERIA = MDIFF) Coronavirus 2018 nCoV [id number] 00:39:00 Test Item Value Reference Range Interpretation [...] tent with COVID-19. - XR CHEST 2 [id number] 18:58:00 Name: CARMEN BARNETT [facility] : 1950 Age/S: 70 / F [address] Unit #: [id number] Loc: [place] [address] Phys: Candi Burris MD Acct: [id number] Dis Date: 20200512 Status: DIS IN PHONE #: [phone] Exam Date: 05/10/2020 184 FAX #: Reason: syncope EXAMS: CPT: [id number] XR CHEST 2 V 62426 Fluoro Time: DAP (Gy m2): Air Kerma [...] Burris MD PAGE 1 Signed Report Name: ERICKACARMEN [place] : 1950 Age/S: 70 / F [address] [address] Unit #: [id number] Loc: [place] [address] Phys: Candi Burris MD Acct: [id number] Dis Date: 20200512 Status: DIS IN PHONE #: [phone] Exam Date: 05/10/2020 1840 FAX #: Reason: syncope EXAMS: CPT: [id number] XR CHEST 2 V 10851 Fluoro Time: DAP (Gy m2): Air Kerma (mGy): <Continued> Technologist: Justino Borjas, RT(R)(CT); ... Trnscb Date/Time: 05/10/2020 (1857) t.KITTYR.DRB1 Orig Print D/T: S: 05/10/2020 (1901) PAGE 2 Signed Report- XR CHEST 2 [id number] 18:58:00 Name: BARNETTCARMEN [facility] : 1950 Age/S: 70 / F [address] [address] Unit #: [id number] Loc: [place] [address] Phys: Candi Burris MD Acct: [id number] Dis Date: Status: REG ER PHONE #: [phone] Exam Date: 05/10/20201839 FAX #: Reason: syncope EXAMS: CPT: [id number] XR CHEST 2 V 80305 Fluoro Time: DAP (Gy m2): Air Kerma [...] Burris MD PAGE 1 Signed Report Name: BARNETTLizet SALVADOR [facility] : 1950 Age/S: 70 / F [address] [address] Unit #: [id number] Loc: [place] [address] Phys: Candi Burris MD Acct: [id number] Dis Date: Status: REG ER PHONE #: [phone] Exam Date: 05/10/20201839 FAX #: Reason: syncope EXAMS: CPT: [id number] XR CHEST 2 V 80243 Fluoro Time: DAP (Gy m2): Air Kerma (mGy): <Continued> Technologist: Justino Borjas, RT(R)(CT); ... Trnscb Date/Time: 05/10/2020 (1857) t.KITTYR.DRB1 Orig Print D/T: S: 05/10/2020 (190) PAGE 2 Signed [id number] 18:25:00 Test Item Value Reference Range Interpretation [...] by Nursing: DANO RFLX MICR CULT IF [id number] 18:04:00 Test Item Value Reference Range Interpretation [...] URINE: MIDSTREAMIndication for culture: Suprapubic PainBASIC METABOLIC [id number] 17:05:00 Test Item Value Reference Range Interpretation [...] CA) 8.8 MG/DL 8.5-10.1 N CBC W/AUTO [id number] 16:54:00 Test Item Value Reference Range Interpretation [...] NO DIFF/SCN CRITERIA = MDIFF) - XR [id number] 16:35:00 Name: CARMEN BARNETT [facility] : 1950 Age/S: 70 / F [address] [address] Unit #: [id number] Loc: [place] [address] Phys: Candi Burris MD Acct: [id number] Dis Date: 20200512 Status: DIS IN PHONE #: [phone] Exam Date: 05/10/2020 1620 FAX #: Reason: pelvic pain EXAMS: CPT: [id number] XR PELVIS 65199 Fluoro Time: DAP (Gy m2): Air Kerma [...] and signed by: Jose Corona M.D. CC: Canid Burris MD PAGE 1 Signed Report Name: CARMEN NARAYANAN [facility] : 1950 Age/S: 70 / F [address] [address] Unit #: [id number] Loc: [place] [address] Phys: Candi Burris MD Acct: [id number] Dis Date: 20200512 Status: DIS IN PHONE #: [phone] Exam Date: 05/10/2020 162 FAX #: Reason: pelvic pain EXAMS: CPT: [id number] XR PELVIS 93821 Fluoro Time: DAP (Gy m2): Air Kerma (mGy): <Continued> Technologist: Dean Cruz RT(R)(CT) Trnscb Date/Time: 05/10/2020 (1634) [id number] Orig Print D/T: S: 05/10/2020 (1638) PAGE 2 Signed Report- XR [id number] 16:35:00 Name: CARMEN BARNETT [facility] : 1950 Age/S: 70 / F [address] [facility] Unit #: [id number] Loc: [place] [address] Phys: Candi Burris MD Acct: [id number] Dis Date: Status: PRE ER PHONE #: [phone] Exam Date: 05/10/2020 1620 FAX #: Reason: pelvic pain EXAMS: CPT: [id number] XR PELVIS 30718 Fluoro Time: DAP (Gy m2): Air Kerma [...] PAGE 1 Signed Report Name: CARMEN NARAYANAN [facility] : 1950 Age/S: 70 / F [address] [address] Unit #: [id number] Loc: [place] [address] Phys: Candi Burris MD Acct: [id number] Dis Date: Status: PRE ER PHONE #: [phone] Exam Date: 05/10/2020 1627 FAX #: Reason: pelvic pain EXAMS: CPT: [id number] XR PELVIS 33230 Fluoro Time: DAP (Gy m2): Air Kerma (mGy): <Continued> Technologist: Dean Cruz RT(R)(CT) Trnscb Date/Time: 05/10/2020 (1634) [email or web address] Orig Print D/T: S: 05/10/2020 (1638) PAGE 2 Signed Report- XR FEMUR MIN 2 VWS [id number] 16:31:00 Name: CARMEN BARNETT [facility] : 1950 Age/S: 70 / F [address] [address] Unit #: [id number] Loc: [place] [address] Phys: Candi Burris MD Acct: [id number] Dis Date: 20200512 Status: DIS IN PHONE #: [phone] Exam Date: 05/10/2020 1627 FAX #: Reason: fall ? syncopal episode EXAMS: CPT: [id number] XR FEMUR MIN [address] [place] [address] Fluoro Time: DAP (Gy m2): Air Kerma [...] PAGE 1 Signed Report Name: CARMEN BARNETT [place] : 0 1950 Age/S: 70 / F [address] [address] Unit #: [id number] Loc: [place] [address] Phys: Candi Burris MD Acct: [id number] Dis Date: 20200512 Status: DIS IN PHONE #: [phone] Exam Date: 05/10/2020 1629 FAX #: Reason: fall ? syncopal episode EXAMS: CPT: [id number] XR FEMUR MIN [address] [place] [address] Fluoro Time: DAP (Gy m2): Air Kerma (mGy): <Continued> Technologist: Dean Cruz RT(R)(CT) Trnscb Date/Time: 05/10/2020 (1630) [email or web address] Orig Print D/T: S: 05/10/2020 (1633) PAGE 2 Signed Report- XR FEMUR MIN 2 VWS [id number] 16:31:00 Name: CARMEN BARNETT [place] : 1950 Age/S: 70 / F [address] [address] Unit #: [id number] Loc: [place] [address] Phys: Candi Burris MD Acct: [id number] Dis Date: Status: PRE ER PHONE #: [phone] Exam Date: 05/10/2020 162 FAX #: Reason: fall ? syncopal episode EXAMS: CPT: [id number] XR FEMUR MIN [address] [place] [address] Fluoro Time: DAP (Gy m2): Air Kerma [...] PAGE 1 Signed Report Name: CARMEN BARNETT [place] : 1950 Age/S: 70 / F [address] [address] Unit #: [id number] Loc: [place] [address] Phys: Candi Burris MD Acct: [id number] Dis Date: Status: PRE ER PHONE #: [phone] Exam Date: 05/10/2020 1624 FAX #: Reason: fall ? syncopal episode EXAMS: CPT: [id number] XR FEMUR MIN [address] [place] [address] Fluoro Time: DAP (Gy m2): Air Kerma (mGy): <Continued> Technologist: Dean Cruz RT(R)(CT) Trnscb Date/Time: 05/10/2020 (163) [email or web address] Orig Print D/T: S: 05/10/2020 (1634) PAGE 2 Signed Report- XR CHEST 1 [id number] 16:30:00 Name: CARMEN BARNETT [place] : 1950 Age/S: 70 / F [address] [address] Unit #: [id number] Loc: [place] [address] Phys: Candi Burris MD Acct: [id number] Dis Date: 20200512 Status: DIS IN PHONE #: [phone] Exam Date: 05/10/2020 1615 FAX #: Reason: chest pain EXAMS: CPT: [id number] XR CHEST 1 V 39635 Fluoro Time: DAP (Gy m2): Air Kerma [...] PAGE 1 Signed Report Name: CARMEN BARNETT [facility] : 1950ge/S: 70 / [address] Unit #: [id number] Loc: [place] [address] Phys: Candi Burris MD Acct: [id number] Dis Date: 20200512 Status: DIS IN PHONE#: [phone] Exam Date: 05/10/2020 1615 FAX #: Reason: chest pain EXAMS: CPT: [id number] XR CHEST 1 V 06062 Fluoro Time: DAP (Gy m2): Air Kerma (mGy): <Continued> Technologist: Dean Cruz RT(R)(CT) Trnscb Date/Time: 05/10/2020 (1629) [email or web address] Orig Print D/T: S: 05/10/2020 (163) PAGE 2 Signed Report- XR CHEST 1 [id number] 16:30:00 Name: CARMEN BARNETT [facility] : 1950 Age/S: 70 / F [address] [address] Unit #: [id number] Loc: [place] [address] Phys: Candi Burris MD Acct: [id number] Dis Date: Status: PRE ER PHONE #: [phone] Exam Date: 05/10/2020 1615 FAX #: Reason: chest pain EXAMS: CPT: [id number] XR CHEST 1 V 43442 Fluoro Time: DAP (Gy m2): Air Kerma [...] PAGE 1 Signed Report Name: CARMEN BARNETT [place] : 1950ge/S: 70 / F [address] [address] Unit #: [id number] Loc: [place] [address] Phys: Candi Burris MD Acct: [id number] Dis Date: Status: PRE ER PHONE#: [phone] Exam Date: 05/10/2020 1615 FAX #: Reason: chest pain EXAMS: CPT: [id number] XR CHEST 1 V 89313 Fluoro Time: DAP (Gy m2): Air Kerma (mGy): <Continued> Technologist: Dean Cruz RT(R)(CT) Trnscb Date/Time: 05/10/2020 (163) [email or web address] Orig Print D/T: S: 05/10/2020 (1633) PAGE 2 Signed Report- CT HEAD/BRAIN W/O [id number] 16:14:00 Name: CARMEN BARNETT [facility] : 1950 Age/S: 70 / F [address] [address] Unit #: [id number] Loc: [place] [address] Phys: Candi Burris MD Acct: [id number] Dis Date: 05/12/2020 Status: DIS IN PHONE #: [phone] Exam Date: 05/10/2020 1605 FAX #: Reason: headache EXAMS: CPT: [id number] CT HEAD/BRAIN W/O CONT 37861 EXAM: - CTHEAD/BRAIN W/O CONT Location code:C3 [...] 1 Signed Report (CONTINUED) Name: CARMEN BARNETT [place] : 1950 Age/S: 70 / F [address] [facility] Unit #: [id number] Loc: [place] [address] Phys: Candi Burris MD Acct: [id number] Dis Date: 05/12/2020 Status: DIS IN PHONE #: [phone] Exam Date: 05/10/2020 1605 FAX #: Reason: headache EXAMS: CPT: [id number] CT HEAD/BRAIN W/O CONT 60716 <Continued> at 1614 Reported and signed by: Johana Hernandez M.D. CC: Candi Burris MD Technologist:Dean Cruz, RT(R)(CT); ... CTDI: DLP: Trnscb Date/Time: 05/10/2020 (1614) [email or web address] Orig Print D/T: S: 05/10/2020 (3867) PAGE2 Signed Report- CT HEAD/BRAIN W/O [id number] 16:14:00 Name: CARMEN BARNETT [place] : 1950 Age/S: 70 / F [address] [address] Unit #: [id number] Loc: [place] [address] Phys: Candi Burris MD Acct: [id number] Dis Date: Status: PRE ER PHONE #: [phone] Exam Date: 05/10/2020 1605 FAX #: Reason: headache EXAMS: CPT: [id number] CT HEAD/BRAIN W/O CONT 63790 EXAM: - CTHEAD/BRAIN W/O CONT Location code:C3 [...] 1 Signed Report (CONTINUED) Name: CARMEN BARNETT [facility] : 1950 Age/S: 70 / F [address] [address] Unit #: [id number] Loc: [place] [address] Phys: Candi Burris MD Acct: [id number] Dis Date: Status: PRE ER PHONE #: [phone] Exam Date: 05/10/2020 1608 FAX #: Reason: headache EXAMS: CPT: [id number] CT HEAD/BRAIN W/O CONT 27994 <Continued> at 1614 Reported and signed by: Johana Hernandez M.D. CC: Candi Burris MD Technologist:Dean Cruz, RT(R)(CT); ... CTDI: DLP: Trnscb Date/Time: 05/10/2020 (1613) [email or web address] Orig Print D/T: S: 05/10/2020 (6574) PAGE2 Signed ReportBASIC METABOLIC [id number] 13:48:00 Test Item Value Reference Range Interpretation [...] code = CA) 8.8 MG/DL 8.5-10.1 N [id number] 13:48:00 Test Item Value Reference Range Interpretation Comments MAGNESIUM (test code = MAG) 1.8 MG/DL 1.8-2.4 N CBC W/AUTO [id number] 13:33:00 Test Item Value Reference Range Interpretation [...] = TT4) 7.3 ug/dL 4.6-12.0 N Lipid [id number] 23:34:00 Test Item Value Reference Range Interpretation Comments Cholesterol (test 172 mg/dL 0-200 N code = CHOL) Triglycerides (test 129 mg/dL 9-200 N code = TRIG) HDL (test code = 39 mg/dL 50-60 L HDL) Chol/HDL (test code 4.4 Ratio 0.0-4.4 N = CHOLPHDL) LDL, Calculated 107 0-130 N (NOTE)RISK O F HEART (test code = LDLC) DISEASEPu blished by French Heart AssociationAnal yte Optim al Boderline Increased RiskC HOL <200 200-239 >240TRI G <150 150-199 >200HDL Male: >60 <40HDL Female: >60 <50 LDL < 100 130-15 9 >160 LDL NEAR OPTIMAL IS 100- 129 VLDL (test code = 26 mg/dL 5-40 N VLDL) LDL/HDL (test code = 3 LDLPHDL) Comprehensive Metabolic [id number] 23:34:00 Test Item Value Reference Range Interpretation [...] validated by th e MDRD study and shoul d be interpretedwith caution.eGFR Re sult Interpretation: eGFR > or = 60 is in t he Normal RangeeGF R < 60 may mean kidney diseaseeGFR < 1 5 may mean kidney failureRange s recommended by the National Kidney Foundation,http ://nkd ep.nih.gov T3 [id number] 23:06:00 Test Item Value Reference Range Interpretation Comments T3, Uptake (test code = T3U) 34 % 28-41 N CBC with [id number] 22:32:00 Test Item Value Reference Range Interpretation [...] code = ALYMPH) 1.4 K/cumm 0.5-4.6 N Imperial Abs (test code = AMONO) 0.5 K/cumm 0.0-1.2 N Eos Abs (test code = AEOS) 0.27 K/cumm 0.00-0.74 N Baso Abs (test code = ABASO) 0.1 K/cumm 0.00-0.21 N - CT HEAD/BRAIN W/O [id number] 10:07:00 FAX: Agusto Hurst MD [place]: [address]: JORGE Name: CARMEN BARNETT [facility] : 1950 Age/S: 62/F [address] Unit: [id number] Loc: [place], [place]: [place] [address] Acct: [id number] Dis Date: Status: UNK PHONE #: [phone] Exam Date: 10/08/20121958 FAX #: [phone] Reason: seizure EXAMS: CPT CODE: [id number] CT HEAD/BRAIN W/O CONT 06831 CT HEAD WITHOUT CONTRAST. HISTORY: seizure COMPARISON: [...] Technologist: DAO GALINDO Trnscrd Dt/Tm: 10/09/2012 (1007) [email or web address] Orig Print D/T: S: 10/09/2012 (1010 PAGE 1 Signed Report
--- NOTE | 2021-04-03 16:25 | RAD REPORT ---
EXAM DESCRIPTION: CT - Ct Stroke Brain Wo Cont - 04/03/2021 4:13 pm CLINICAL HISTORY: WEAKNESSright hemiplegia COMPARISON: Head Brain Wo Cont dated 07/07/2020 TECHNIQUE: Axial 5 millimeter thick images of the head were obtained without IV contrast. All CT scans are performed using dose optimization technique as appropriate and may include automated exposure control or mA/KV adjustment according to patient size. FINDINGS: No intracranial hemorrhage, mass, or cerebral edema. No acute cortical based infarction id entified. There is no cortical edema or sulcal effacement. Artifact is created by the deep stimulator wires. Cerebral parenchyma not clearly different from the June 2020. No extra-axial fluid collecti ons. Mckee matter-white matter differentiation is preserved.Arterial tree calcifications are present. Visualized portions of the mastoid air cells, paranasal sinuses, and orbits are unremarkable. Findings telephoned to Dr. Yap 4:21 p.m. IMPRESSION: No CT evidence of acute intracranial process. The above detailed findings are not significantly different from June 2020.
[2021-04-03 16:46] LABS: Absolute Lymphocytes (CBC) 1.3 K/uL (0.7-4.9); Basophils % 0.8 % (0-1.3); Hematocrit 41.9 % (36.0-45.0); Lymphocytes % 9.2 % (15.3-44.8); MPV 9.7 fL (7.6-11.3); RBC Red Blood Cell Count 4.92 M/uL (3.86-4.86)
[2021-04-03] MEDS ORDERED: ASPIRIN 81 MG CHEWABLE TABLET ONE (16:52)
--- NOTE | 2021-04-03 16:52 | RAD REPORT ---
EXAM DESCRIPTION: RAD - Chest Single View - 04/03/2021 4:27 pm CLINICAL HISTORY: weakness, Stroke protocol chest film COMPARISON: April 2018 TECHNIQUE: AP portable chest image was obtained 04/03/2021 4:27 pm . FINDINGS: Lung volumes are low. No acute lung parenchymal process seen. Deep neurostimulator battery pack partially obscures the left chest. Heart and vasculature are normal. No measurable pleural effu phylicia and no pneumothorax. No acute bony abnormality seen. No acute aortic findings suspected. IMPRESSION: No acute cardiopulmonary process. No significant change from comparison study.
[2021-04-03] MEDS ORDERED: FOLIC ACID 5 MG/ML VIAL ONE (16:57)
[2021-04-03] MEDS ORDERED: NA CHLORIDE 0.9% 1,000 ML ONE ×2 (16:57→21:31)
[2021-04-03 17:02] LABS: BUN Blood Urea Nitrogen 32 mg/dL (7-18); Bicarbonate 21 mmol/L (21-32); Glucose Level 119 mg/dL (74-106); Potassium 3.7 mmol/L (3.5-5.1); Sodium Level 140 mmol/L (136-145); Troponin (Emerg Dept Use Only) < 0.02 ng/mL (0.0-0.045)
[2021-04-03] MEDS ORDERED: METOCLOPRAMIDE 10 MG/2mL INJ ONE (17:07)
[2021-04-03] MEDS ORDERED: dexAMETHasone 10 MG/ML VIAL ONE (17:08)
[2021-04-03 17:18] LABS: Protime INR 1.07
[2021-04-03] MEDS ORDERED: MEPERIDINE HCL 25 MG/ML SYR ONE (18:15)
[2021-04-03] MEDS ORDERED: LEVETIRACETAM 500 MG/5 ML VIAL IV ONE (18:17)
[2021-04-03] MEDS ORDERED: NA CHLORIDE 0.9% 50 ML ONE (18:17)
--- NOTE | 2021-04-03 18:41 | ER ---
Nurse's Notes [facility] Name: Kailey Mcdermott Age: 70 yrs Sex: Female : 1950 Arrival Date: 04/03/2021 Time: 15:19 Bed 23 Private MD: Diagnosis: Migraine;Weakness;Paresthesia of skin Presentation: 04/03 15:33 Chief complaint: Patient states: Neck pain/stiffness for 2 days. Noticed R side feels ll1 numb, and gait is off balanced for 2 days. Has had nausea and diarrhea for 1 week. No appetite, no fever. Coronavirus screen: Client denies travel out of the [place] in the last 14 days. At this time, the client does not indicate any symptoms associated with coronavirus-19. Ebola Screen: Patient denies travel to an Ebola-affected area in the 21 days before illness onset. Initial Sepsis Screen: Does the patient meet any 2 criteria? HR > 90 bpm. No. Patient's initial sepsis screen is negative. Does the patient have a suspected source of infection? No. Patient's initial sepsis screen is negative. Risk Assessment: Do you want to hurt yourself or someone else? Patient reports no desire to harm self or others. Onset of symptoms was April 02, 2021. 15:33 Method Of Arrival: Wheelchair ll1 15:33 Acuity: MERYL 2 ll1 Triage Assessment: 16:45 Headache History: The patient has had previous headaches and this one is similar to tr6 previous episodes. General: Appears. General: Appears unkempt, malnourished, Behavior is calm, cooperative, appropriate for age. Pain: Complains of pain in c/o headache Pain currently is 7 out of 10 on a pain scale. Pain began gradually, Also complains of no other associated symptoms. Neuro: Level of Consciousness is awake, alert, obeys commands, Oriented to person, place, time, situation, Executive Administrator are weak on right Moves all extremities. Gait is unsteady, baseline. Cardiovascular: No deficits noted. Respiratory: No deficits noted. GI: No deficits noted. : No deficits noted. Derm: Skin is thin, Skin is dry. 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 - Social history:: Smoking status: Patient denies any tobacco usage or history of. - Family history:: not pertinent. - Hospitalizations: : No recent hospitalization is reported. Screenin:44 Abuse screen: Denies threats or abuse. Denies injuries from another. Nutritional tr6 screening: No deficits noted. Tuberculosis screening: No symptoms or risk factors identified. Fall Risk None identified. Assessment: 16:09 General: pt in CT. tr6 18:06 Reassessment: pt transferred to CT. General: Appears uncomfortable, unkempt, Behavior tr6 is calm, cooperative, appropriate for age. Pain: Complains of pain in c/o headache and numbness and tingling on right side. Neuro: No deficits noted. Cardiovascular: No deficits noted. Respiratory: No deficits noted. GI: No deficits noted. : No deficits noted. EENT: Poor dentition noted. Derm: No deficits noted. 18:18 Reassessment: pt returned from CT. tr6 19:32 Reassessment: Patient and/or family updated on plan of care and expected duration. Pain ad5 level reassessed. Patient is alert, oriented x 3, equal unlabored respirations, skin warm/dry/pink. Received care of pt at this time. Pt resting comfortably in stretcher, resp even/unlabored. Bed low and locked, bedrails x 2, call light within reach. NAD noted, will continue to monitor. Vital Signs: 15:33 BP 135 / 52; Pulse 100; Resp 18; Temp 97.7; Pulse Ox 100% ; Weight 58.97 kg; Height 5 ll1 ft. 8 in. (172.72 cm); Pain 10/10; 16:54 BP 145 / 98; Pulse 85; Resp 18; Pulse Ox 87% on R/A; tr6 19:41 BP 125 / 84; Pulse 70; Resp 16 S; Pulse Ox 95% on R/A; Pain 0/10; ad5 15:33 Body Mass Index 19.77 (58.97 kg, 172.72 cm) ll1 ED Course: 15:19 Patient arrived in ED. as 15:35 Triage completed. ll1 15:38 Arm band placed on. ll1 15:39 Patient placed in an exam room, on a stretcher. ll1 15:40 Kate Lott, NEGRITA is Primary Nurse. tr6 15:40 Ted Yap MD is Attending Physician. rn 16:13 CT Stroke Brain w/o Contrast In Process Unspecified. EDMS 16:26 Stroke CXR 1 View In Process Unspecified. EDMS 16:54 No provider procedures requiring assistance completed. Inserted saline lock: 20 gauge tr6 in left wrist, using aseptic technique. 16:55 Patient has correct armband on for positive identification. Bed in low position. Call tr6 light in reach. Side rails up X 1. 18:14 CT Head Angio In Process Unspecified. EDMS 18:15 CT Neck Angio In Process Unspecified. EDMS 18:40 Agustin Lira MD is Hospitalizing Provider. rn 22:38 Patient admitted, IV remains in place. ad5 Administered Medications: 16:43 Drug: Aspirin Chewable Tablet 324 mg Route: PO; tr6 19:25 Follow up: Response: No adverse reaction ad5 16:43 Drug: foLIC Acid 1 mg Route: IVPB; Site: left wrist; tr6 19:25 Follow up: IV Status: Completed infusion ad5 16:56 Drug: Decadron - Dexamethasone 10 mg Route: IVP; Site: left wrist; tr6 19:25 Follow up: Response: No adverse reaction ad5 16:56 Drug: Reglan (metoCLOPramide) 10 mg Route: IVP; Site: left wrist; tr6 19:25 Follow up: Response: No adverse reaction ad5 17:43 Drug: NS 0.9% 500 ml Route: IV; Rate: bolus; Site: left wrist; tr6 19:25 Follow up: IV Status: Completed infusion; IV Intake: 500ml ad5 18:06 Drug: Demerol (meperidine) 12.5 mg Route: IVP; Site: left wrist; tr6 18:06 Drug: Keppra (levETIRAcetam) 500 mg Route: IV; Rate: calculated rate; Site: left wrist; tr6 Intake: 19:25 IV: 500ml; Total: 500ml. ad5 Outcome: 18:40 Decision to Hospitalize by Provider. rn 22:38 Admitted to Med/surg via stretcher. ad5 22:38 Condition: stable 22:38 Instructed on the need for admit, Demonstrated understanding of instructions. 22:55 Patient left the ED. iw Signatures: Dispatcher [employer] Mikaela Castillo Irene, RN RN iw Ted Yap MD MD rn Lewis, Lynsay, RN RN ll1 Kate Lott RN RN tr6 Donta Shin ad5
--- NOTE | 2021-04-03 18:41 | RAD REPORT ---
EXAM DESCRIPTION: CT - Head angio - 04/03/2021 6:14 pm CLINICAL HISTORY: headache, right sided hemiparesis TECHNIQUE: During dynamic enhancement using nonionic IV contrast, axial 1 millimeter thick images of the head were obtained. Sagittal and axial reconstruction images were generated using MIP technique and reviewed. All CT scans are performed using dose optimization technique as appropriate and may include automated exposure control or mA/KV adjustment according to patient size. COMPARISON: CT head same date FINDINGS: No aneurysm or vascular malformation identified. Major venous sinuses are patent. No named branch occlusion or vasculitis findings. The anterior, middle and posterior cerebral artery distribution show no significant degrees of atherosclerotic change. Dense ring-like calcifications in volve each distal vertebral artery causing 50% right-side and 40% left-side stenosis. Cavernous and s upraclinoid internal carotid artery calcifications do not cause significant degrees of stenosis. IMPRESSION: Each distal vertebral artery shows dense band calcifications causing 50% right-side and 40% left-side short segment stenosis. Internal carotid artery calcifications are present without significant stenosis. Intracranial circulation shows no significant disease. No vessel occlusion that would explain the pat ient's symptom pattern.
--- NOTE | 2021-04-03 18:41 | EDPHYS ---
Physician Documentation [facility] Name: Kailey Mcdermott Age: 70 yrs Sex: Female : 1950 Arrival Date: 04/03/2021 Time: 15:19 Bed 23 Private MD: ED Physician Ted Yap HPI: 04/03 15:47 This 70 yrs old Female presents to ER via Wheelchair with complaints of rn Numbness - r side, Headache, Stiff Neck. 15:47 This 70 yrs old Female presents to ER via Wheelchair with complaints of rn Numbness - r side, Headache, Stiff Neck. 15:47 The patient's problem is reported as paresthesias, in right upper extremity, in right rn lower extremity, weakness, in the right upper extremity, in the right lower extremity. Onset: The symptoms/episode began/occurred 3 day(s) ago. Duration: The episode is continuous. The symptoms are alleviated by nothing. The symptoms are aggravated by nothing. Severity of symptoms: At their worst the symptoms were moderate in the emergency department the symptoms are unchanged. The patient has not experienced similar symptoms in the past. Reports 3 days of right sided weakness and numbness, denies recent head injury or trauma, no fever, no chest pain. Reports noticed neck stiffness and headache when this began. No hx of CVA.. 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 - Social history:: Smoking status: Patient denies any tobacco usage or history of. - Family history:: not pertinent. - Hospitalizations: : No recent hospitalization is reported. ROS: 15:55 Constitutional: Negative for fever, chills, and weight loss, Eyes: Negative for injury, rn pain, redness, and discharge, Neck: + neck pain Cardiovascular: Negative for chest pain, palpitations, and edema, Respiratory: Negative for shortness of breath, cough, wheezing, and pleuritic chest pain, Abdomen/GI: Negative for abdominal pain, nausea, vomiting, diarrhea, and constipation, Back: Negative for injury and pain, : Negative for injury, bleeding, discharge, and swelling, MS/Extremity: Negative for injury and deformity, Skin: Negative for injury, rash, and discoloration, Neuro: Negative for seizure Exam: 15:55 Constitutional: This is a well developed, well nourished patient who is awake, alert, rn appears anxious Head/Face: Normocephalic, atraumatic. Eyes: Periorbital areas with no swelling, redness, or edema. Neck: NO bony tenderness, no swelling, no crepitus. Cardiovascular: Regular rate and rhythm. No pulse deficits. Respiratory: No increased work of breathing, no retractions or nasal flaring. Abdomen/GI: Soft, non-tender Skin: Warm, dry MS/ Extremity: Pulses equal, no cyanosis. Neuro: Awake and alert, GCS 15, oriented to person, place, time, and situation. Cranial nerves II-XII grossly intact. RUE and RLE no effort against gravity, falls immediately to bed. LUE/LLE 5/5 strength. No sensation to pinprick RUE/RLE. Vital Signs: 15:33 BP 135 / 52; Pulse 100; Resp 18; Temp 97.7; Pulse Ox 100% ; Weight 58.97 kg; Height 5 ll1 ft. 8 in. (172.72 cm); Pain 10/10; 16:54 BP 145 / 98; Pulse 85; Resp 18; Pulse Ox 87% on R/A; tr6 19:41 BP 125 / 84; Pulse 70; Resp 16 S; Pulse Ox 95% on R/A; Pain 0/10; ad5 15:33 Body Mass Index 19.77 (58.97 kg, 172.72 cm) ll1 MDM: 15:40 Patient medically screened. rn 16:20 ED course: No acute findings on CT head per Dr. Canela. . rn 16:48 ED course: Pt still complaining of headache and neck pain, ct without acute findings rn per Dr. Canela, upon reevaluation, has improved ROM RUE/RLE, but still weak and diminished sensation compared to left side. Reports migraines since brain stimulator in place. Given that symptoms present for 2-3 days, would expect more significant findings on CT head. Possible hemiplegic or complicated migraine. Will treat headache and see if symptoms continue to improve. . 17:33 ED course: Consulted with Dr. Pearson, states has had this complaint before, will be rn happy to consult on patient in hospital. Also requests ESR and states frequent UTIs.. 17:58 ED course: Pt states head still hurting, will get CTA head and neck, given nighttime rn dose of keppra, now moving right arm normally, reports tingling in right leg. . 18:39 Differential diagnosis: CVA, TIA, metabolic disorder. Data reviewed: vital signs, rn nurses notes, lab test result(s), EKG, radiologic studies, CT scan, and as a result, I will admit patient. Counseling: I had a detailed discussion with the patient and/or guardian regarding: the historical points, exam findings, and any diagnostic results supporting the discharge/admit diagnosis, lab results, radiology results, the need for further work-up and treatment in the hospital. Response to treatment: the patient's symptoms have mildly improved after treatment, and as a result, I will admit patient. Admission orders: after a detailed discussion of the patient's condition and case, the admit orders are written by me. 04/03 15:46 Order name: Troponin (emerg Dept Use Only); Complete Time: 17:22 04/03 15:46 Order name: Basic Metabolic Panel; Complete Time: 17:22 04/03 15:46 Order name: CBC with Diff rn 04/03 15:46 Order name: Protime (+inr); Complete Time: 18:20 04/03 15:46 Order name: Ptt, Activated; Complete Time: 18:20 04/03 17:12 Order name: Glucose, Ancillary Testing; Complete Time: 17:22 EDKS 04/03 17:33 Order name: Urine Microscopic Only 04/03 17:33 Order name: Urine Culture 04/03 17:33 Order name: Urine Microscopic Only EDKS 04/03 17:33 Order name: Urine Culture EDKS 04/03 17:33 Order name: Sed Rate 04/03 20:18 Order name: SARS-COV-2 RT PCR [facility] 04/03 20:49 Order name: CBC Smear Scan EDKS 04/03 15:46 Order name: CT Stroke Brain w/o Contrast; Complete Time: 16:34 04/03 15:46 Order name: Stroke CXR 1 View; Complete Time: 17:22 rn 04/03 15:46 Order name: EKG; Complete Time: 15:47 rn 04/03 15:46 Order name: Accucheck; Complete Time: 17:44 rn 04/03 15:46 Order name: Cardiac monitoring; Complete Time: 16:44 rn 04/03 15:47 Order name: CT Head Angio; Complete Time: 18:49 rn 04/03 15:47 Order name: CT Neck Angio; Complete Time: 18:49 rn 04/03 20:17 Order name: CONS Physician Consult EDKS 04/03 20:27 Order name: C Spine Ap/Lat EDMS 04/03 15:46 Order name: EKG - Nurse/Tech; Complete Time: 17:44 rn 04/03 15:46 Order name: IV Saline Lock; Complete Time: 16:44 rn 04/03 15:46 Order name: Labs collected and sent; Complete Time: 16:44 rn 04/03 15:46 Order name: NPO; Complete Time: 16:44 rn 04/03 15:46 Order name: O2 Per Protocol; Complete Time: 16:44 rn 04/03 15:46 Order name: O2 Sat Monitoring; Complete Time: 16:44 rn 04/03 15:46 Order name: Stroke Swallow Screen; Complete Time: 16:44 rn 04/03 17:33 Order name: Urine Dipstick-Ancillary (obtain specimen) rn Administered Medications: 16:43 Drug: Aspirin Chewable Tablet 324 mg Route: PO; tr6 19:25 Follow up: Response: No adverse reaction ad5 16:43 Drug: foLIC Acid 1 mg Route: IVPB; Site: left wrist; tr6 19:25 Follow up: IV Status: Completed infusion ad5 16:56 Drug: Decadron - Dexamethasone 10 mg Route: IVP; Site: left wrist; tr6 19:25 Follow up: Response: No adverse reaction ad5 16:56 Drug: Reglan (metoCLOPramide) 10 mg Route: IVP; Site: left wrist; tr6 19:25 Follow up: Response: No adverse reaction ad5 17:43 Drug: NS 0.9% 500 ml Route: IV; Rate: bolus; Site: left wrist; tr6 19:25 Follow up: IV Status: Completed infusion; IV Intake: 500ml ad5 18:06 Drug: Demerol (meperidine) 12.5 mg Route: IVP; Site: left wrist; tr6 18:06 Drug: Keppra (levETIRAcetam) 500 mg Route: IV; Rate: calculated rate; Site: left wrist; tr6 Disposition: 04/03/21 18:40 Hospitalization ordered by Agustin Lira for Observation. Preliminary diagnosis are Migraine, Weakness, Paresthesia of skin. - Bed requested for Telemetry/MedSurg (observation). - Status is Observation. iw - Condition is Stable. - Problem is new. - Symptoms have improved. Signatures: Dispatcher [employer] EDMS Allyn Youssef, NEGRITA RN iw Ted Yap MD MD rn Lasagna, Tonya, RN RN tl1 Cheyenne Calabrese RN RN ll1 Kate Lott RN RN tr6 Donta Shin ad5 Corrections: (The following items were deleted from the chart) 19:25 18:14 CORONAVIRUS+MR.LAB.BRZ ordered. EDKS EDMS 21:42 18:40 Hospitalization Ordered by Agustin Lira MD for Observation. Preliminary tl1 diagnosis is Migraine; Weakness; Paresthesia of skin. Bed requested for Telemetry/MedSurg (observation). Status is Observation. Condition is Stable. Problem is new. Symptoms have improved. rn 22:55 21:42 04/03/2021 18:40 Hospitalization Ordered by Agustin Lira MD for Observation. iw Preliminary diagnosis is Migraine; Weakness; Paresthesia of skin. Bed requested for Telemetry/MedSurg (observation). Status is Observation. Condition is Stable. Problem is new. Symptoms have improved. tl1
--- NOTE | 2021-04-03 18:47 | RAD REPORT ---
EXAM DESCRIPTION: CT - Neck Angio - 04/03/2021 6:14 pm CLINICAL HISTORY: neck pain, right sided hemiparesis TECHNIQUE: During dynamic enhancement using nonionic IV contrast, axial 2 mm thick images of the nec k were obtained. Sagittal and axial reconstruction images were generated using MIP technique and revi ewed. All CT scans are performed using dose optimization technique as appropriate and may include automated exposure control or mA/KV adjustment according to patient size. COMPARISON: CT head same date FINDINGS: No aneurysm or vascular malformation identified. No carotid or vertebral dissection. No aortic arch or great vessel origin abnormality seen. Vertebral artery origins unremarkable as well . No stenosis, vasculitis or other significant carotid artery finding. There is normal developmental variant of the right vertebral artery. Right vertebral artery remains outside of the usual pathway wi thin the transverse foramina until reaching the C4-5 level. This is not of clinical significance. The distal aspect of each vertebral artery shows a short length bandlike dense calcification causing 40- 50% stenosis. The patient has bilateral carotid bulb calcifications not causing any measurable lumina l narrowing. Prominent cervical spine degenerative change present C4-C6. IMPRESSION: Each distal vertebral artery shows a band dense calcification resulting in 40-50% steno sis. No significant carotid atherosclerotic change.
[2021-04-03 20:48] LABS: Blood Morphology Comment NOT SEEN (NOT SEEN); Platelet Estimate ADEQ; White Blood Cell Scan OK (OK)
[2021-04-03] MEDS ORDERED: ACETAMINOPHEN 500 MG TAB PO PRN (20:56)
[2021-04-03] MEDS ORDERED: MORPHINE 2 MG/ML SYR IV PRN (20:56)
[2021-04-03] MEDS ORDERED: ONDANSETRON 4 MG/2 ML VIAL IV PRN (20:56)
--- NOTE | 2021-04-03 20:59 | RAD REPORT ---
EXAM DESCRIPTION: RAD - C Spine Ap/Lat - 04/03/2021 8:53 pm CLINICAL HISTORY: neck pain COMPARISON: No comparisons FINDINGS: Cervical bodies are normal in height. There is straightening of the usual cervical lordosi s. There is slight retrolisthesis of C4 on C5 and C5 on C6. Advanced C5-6 disc space narrowing and en dplate spurring changes are present. Moderate severity disc space narrowing at C4-5 and C5-6. No frac ture or acute bony process seen. Facet joint degenerative changes mild. There is no prevertebral soft tissue thickening or other suspicious soft tissue finding. IMPRESSION: Advanced cervical spine degenerative change most notable at C5-6. No acute findings seen.
[2021-04-03 21:00] VITALS: BMI 19.8
[2021-04-03] MEDS ORDERED: ATORVASTATIN 40 MG TAB PO SCH (21:00)
[2021-04-03] MEDS: PRIMIDONE 50 MG TAB PO SCH (21:00)
[2021-04-03] MEDS ORDERED: NA CHLORIDE 0.9% 1,000 ML IV SCH (21:00)
[2021-04-03] MEDS ORDERED: ATORVASTATIN 20 MG TAB ONE (21:31)
[2021-04-04] MEDS: TOPIRAMATE 100 MG TAB PO SCH ×2 (00:07→09:53)
[2021-04-04] MEDS: NA CHLORIDE 0.9% 1,000 ML IV SCH ×3 (00:25→10:25)
--- NOTE | 2021-04-04 00:42 | P.HP ---
Certification for Inpatient Patient admitted to: Observation With expected LOS: <2 Midnights Patient will require the following post-hospital care: None Practitioner: I am a practitioner with admitting privileges, knowledge of patient current condition, hospital course, and medical plan of care. Services: Services provided to patient in accordance with Admission requirements found in Title 42 Section 412.3 of the Code of Federal Regulations <Lex Angelo Lizet - Last Filed: 04/04/21 00:34> Patient History Date of Service: 04/04/21 Reason for admission: R sided weakness History of Present Illness: Ms. Mcdermott is a 70 yo F with Parkinson's, essential tremor, hypothyroidism, HLD, seizures and anxiety here today for R sided weakness that began the night before last. She says she felt numbness in the R side of her body and she couldn't move her head to either side. She thought she was having a stroke. She reports headache, dizziness, blurry vision, and nausea. Now she says symptoms have resolved but she can't move her head. WBC 14.4. BUN 32, Cr 1.52, GFR 34. - Past Medical/Surgical History Diabetic: No -: UTI -: SEIZURES -: HTN -: PARKINSON'S status post deep brain stimulation mostly resolved -: HAND TREMORS -: ANXIETY -: RLS -: ABD PAIN -: CKD stage 3 -: hypothyroidism -: HYSTERECOMY -: CARPAL TUNNEL -: R femur SX Psychosocial/ Personal History: Patient currently lives at home with her family - Family History Father -: Heart disease, Diabetes, Kidney disease Mother -: Heart disease, Diabetes Notes: pacemaker Sister -: Diabetes - Social History Smoking Status: Never smoker Alcohol use: No CD- Drugs: No Caffeine use: No Place of Residence: Home <Lex Angelo - Last Filed: 04/04/21 00:34> Date of Service: 04/04/21 <Agustin Lira - Last Filed: 04/21/21 03:16> Allergies ciprofloxacin [From Cipro] Allergy (Verified 04/04/21 02:59) Itching/Hives/Rash sulfamethoxazole [From Bactrim] Allergy (Verified 04/04/21 02:59) Itching/Hives/Rash trimethoprim [From Bactrim] Allergy (Verified 04/04/21 02:59) Itching/Hives/Rash Home Medications: Aspirin [Aspirin EC 81 MG] 81 mg PO DAILY #30 tablet. 08/04/16 levETIRAcetam [Keppra*] 750 mg PO BID #60 tab 03/17/17 Levothyroxine Sodium 50 mcg PO DAILY 04/02/17 Alendronate [Fosamax*] 70 mg PO EVERY 7TH DAY 07/08/20 Esomeprazole Magnesium 40 mg PO DAILY 07/08/20 Gabapentin 200 mg PO BEDTIME 07/08/20 Hydrocodone Bit/Acetaminophen [Hydrocodon-Acetaminophn 10-325] 1 each PO Q6HP PRN 07/08/20 Ondansetron HCl [Zofran] 4 mg PO Q8HP PRN 07/08/20 Sertraline [Zoloft*] 100 mg PO DAILY #30 tab 07/09/20 Simvastatin 40 mg PO DAILY #30 tablet 04/04/21 Topiramate [Topamax*] 100 mg PO BID #60 tab 04/04/21 predniSONE [Deltasone] 20 mg PO BID #11 tab 04/04/21 Review of Systems General: Weakness, As per HPI Eyes: Vision Change, As per HPI ENT: Unremarkable Respiratory: Unremarkable Cardiovascular: Unremarkable Gastrointestinal: Nausea, As per HPI Genitourinary: Unremarkable Musculoskeletal: Unremarkable Integumentary: Unremarkable Neurological: Weakness, Numbness, As per HPI Lymphatics: Unremarkable <Lex Angelo - Last Filed: 04/04/21 00:34> Physical Examination - Vital Signs Temperature: 97.7 F Blood Pressure: 125/84 Pulse: 70 Respirations: 16 - Physical Exam General: Alert, In no apparent distress, Oriented x3, Cooperative, Cachectic HEENT: Atraumatic, Normocephalic, PERRLA, Mucous membr. moist/pink, EOMI, Sclerae nonicteric Neck: Supple, 2+ carotid pulse no bruit, JVD not distended, No Thyromegaly, No LAD Respiratory: Clear to auscultation bilaterally, Normal air movement Cardiovascular: No edema, Normal pulses, Regular rate/rhythm, Normal S1 S2, No gallops, No rubs, No murmurs Capillary refill: <2 Seconds Gastrointestinal: Normal bowel sounds, Soft and benign, Non-distended, No ascites, No tenderness, No masses, No rebound, No guarding Musculoskeletal: No clubbing, No swelling, No contractures, No erythema, No tenderness, No warmth Integumentary: No rashes, No breakdown, No significant lesion, No tenderness/swelling, No erythema, No warmth, No cyanosis Neurological: Normal speech, Normal strength at 5/5 x4 extr, Normal tone, Cranial nerves 3-12 intact, Abnormal sensation, Abnormal affect Lymphatics: No axilla or inguinal lymphadenopathy - Studies Laboratory Data (last 24 hrs) 04/03/21 16:34: PT 12.3, INR 1.07, APTT 18.9 L 04/03/21 16:34: WBC 14.40 H, Hgb 13.9, Hct 41.9, Plt Count 183 04/03/21 16:34: Sodium 140, Potassium 3.7, BUN 32 H, Creatinine 1.52 H, Glucose 119 H <Lex Angelo - Last Filed: 04/04/21 00:34> Assessment and Plan - Problems (Diagnosis) (1) Parkinson disease Status: Chronic (2) Tremor Status: Chronic (3) Hypothyroidism Status: Chronic Qualifiers: Hypothyroidism type: unspecified Qualified Code(s): E03.9 - Hypothyroidism, unspecified (4) HLD (hyperlipidemia) Status: Chronic Qualifiers: Hyperlipidemia type: unspecified Qualified Code(s): E78.5 - Hyperlipidemia, unspecified (5) VASILIY (acute kidney injury) Status: Acute (6) Seizure Status: Chronic (7) Weakness Onset Date: 04/02/17 Status: Acute (8) Anxiety Status: Chronic - Plan Dr. Pearson consulted continue with ASA, plavix, atorvastatin, and folic acid continue with IVF ECHO in the AM, lipid panel pending reconcile and continue home medications PT consult and speech consult in the AM urinalysis pending pain management as needed Discharge Plan: Home Plan to discharge in: 24 Hours - Advance Directives Does patient have a Living Will: Yes Does patient have a Durable POA for Healthcare: Yes - Code Status/Comfort Care Code Status Assessed: Yes (full code) Critical Care: No Time Spent Managing Pts Care (In Minutes): 70 <Lex Angelo - Last Filed: 04/04/21 00:34> Date of Service: 04/04/21 Patient is clinically doing well. Agree with plan of care as mentioned above. Anticipate discharge as long as patient's workup is unremarkable. <Agustin Lira - Last Filed: 04/21/21 03:16>
--- NOTE | 2021-04-04 00:46 | CON ---
Reason: Right-sided weakness. History: A 70-year-old lady with case of essential tremor severe, history of complex partial seizure s. Also history of nonepileptic seizures and anxiety. She has been having headaches for the last mo nth or 2. We had done a phone followup this year. We recommended increasing the topiramate and gett ing a CT, and she increased the topiramate and the headaches got a little bit better and so she did h ave the CT scan, but then about 2 days ago, she has developed some intermittent right-sided weakness with associated dysarthria that became very prominent today, and she could not talk, and she could no t use the right upper extremity, but she could walk as she walked into her daughter's room, and then was at least able to express to the daughter that she needed to be taken to the emergency department, so they came to the emergency department where CT scan of the brain demonstrated no evidence of cere bral hemorrhage. She had apparently fairly significant right-sided weakness on initial presentation, but it has nearly completely resolved. At this juncture, does complain of headache and neck pain wi th decreased lateral range of motion in the cervical spine. The patient has a deep brain stimulator for essential tremor and therefore cannot have a brain MRI. Consultation was requested. Past Medical History: As alluded to. Allergies: CIPRO AND BACTRIM. Medications: The patient is on Keppra 500 b.i.d., Topamax 50/100, simvastatin, Zoloft, primidone, le vothyroxine, gabapentin and aspirin. Social History: Lives with her daughter and is independent with basic activities of daily living. Family History: Noncontributory. Review of Systems: General: Chronically ill. Eyes: No vision loss. Ears, Nose, Throat: Speaking normally now. Cardiovascular: Patient has atherosclerosis. Pulmonary: Negative. GI: Negative. : Recurrent urine infections and renal insufficiency. Neurologic: As noted. Psychiatric: Anxiety/depression and history of conversion reactions. Musculoskeletal: Neck pain, back pain, knee pain. Endocrine: Hypothyroidism. Physical Examination: Vital Signs: On exam, she is afebrile. Vitals are stable. General: She is awake, alert, oriented, conversant. Pupils are reactive. Ocular motion full withou t nystagmus. Visual aguilar full to confrontation bilaterally. Facial strength and sensation are nor mal. Tongue protrudes evenly. Soft palate elevates symmetrically bilaterally. Neurologic: Extremi ty strength is full. She has very coarse kinetic and postural tremor that is much worse on the left without significant cogwheeling or bradykinesia. She does have slight drift to the right upper and l ower extremity. Sensation is intact. Reflexes are 2/4. Toes are downgoing. Cerebellar exam demons trates no ataxia given degree of tremor. Pertinent Laboratory Data: White count 14, hemoglobin 13.9, platelets 183. Sedimentation rate is pe nding. Creatinine 1.5. SARS negative. CT scan of the brain, no hemorrhage. DBS stimulator is in p lace. CTA head and neck, 40 to 50% vertebral stenosis. No carotid stenosis. Chest x-ray clear. Impression: Transient ischemic attack. Plan: Add Plavix, make intensive statin therapy. Check lipids. The patient cannot have an MRI. Thank you for the consult. We will continue to follow. DARIAN/LAURA Voice ID: [id number] Report ID: [id number]
[2021-04-04] MEDS: HEPARIN 5000 UNIT/ML 1 ML VIAL SQ SCH ×2 (03:32→09:55)
[2021-04-04 06:53] LABS: Absolute Lymphocytes (CBC) 1.2 K/uL (0.7-4.9); Basophils % 0.8 % (0-1.3); Hematocrit 36.4 % (36.0-45.0); Lymphocytes % 13.5 % (15.3-44.8); MPV 10.6 fL (7.6-11.3); RBC Red Blood Cell Count 4.27 M/uL (3.86-4.86)
[2021-04-04 06:54] LABS: Albumin 2.6 g/dL (3.4-5.0); Bilirubin Total 0.3 mg/dL (0.2-1.0); Magnesium 1.8 mg/dL (1.8-2.4); Phosphorus 3.2 mg/dL (2.5-4.9); Protein, Total 6.4 g/dL (6.4-8.2)
[2021-04-04] MEDS ORDERED: LEVOTHYROXINE SOD 0.025 MG TAB PO SCH (07:30)
[2021-04-04 07:32] LABS: Thyroid Stimulating Hormone 3.9 uIU/mL (0.360-3.740)
[2021-04-04] MEDS ORDERED: dexAMETHasone 4 MG/ML VIAL IV ONE (07:53)
[2021-04-04] MEDS ORDERED: HOME MED 1 EA UNK (Ondansetron Hcl [Zofran] 4 MG Tablet) PO PRN (07:53)
[2021-04-04] MEDS ORDERED: FOLIC ACID 1 MG TABLET PO SCH (09:00)
[2021-04-04] MEDS ORDERED: TOPIRAMATE 25 MG TAB PO SCH (09:00)
[2021-04-04] MEDS ORDERED: MAGNESIUM SULFATE 1 gm IVPB 1 GM/100 ML BAG IV ONE (09:00)
[2021-04-04] MEDS ORDERED: SERTRALINE HCL 100 MG TAB PO SCH (09:00)
[2021-04-04] MEDS ORDERED: ASPIRIN EC 81 MG TAB PO SCH (09:00)
[2021-04-04] MEDS: PRIMIDONE 50 MG TAB PO SCH ×2 (09:00→09:54)
[2021-04-04] MEDS ORDERED: levETIRAcetam 500 MG TAB PO SCH ×2 (09:00)
[2021-04-04] MEDS ORDERED: CLOPIDOGREL 75 MG TABLET PO SCH (09:00)
[2021-04-04 10:48] VITALS: BP 115/57; TEMP 98
[2021-04-04 11:05] VITALS: O2SAT 99
--- NOTE | 2021-04-04 11:19 | ECHO ---
HEIGHT: 5 ft 8 in WEIGHT: 130 lb 0.106 oz DATE OF STUDY: 04/04/[address]: Lex Angelo 2-DIMENSIONAL: YES M.MODE: YES DOPPLER: YES COLOR FLOW: YES TDS: NO PORTABLE: NO DEFINITY: NO BUBBLE STUDY: NO DIAGNOSIS: CHEST PAIN CARDIAC HISTORY: CATHERIZATION: NO SURGERY: NO PROSTHETIC VALVE: NO PACEMAKER: NO MEASUREMENTS (cm) DIASTOLIC (NORMALS) SYSTOLIC (NORMALS) IVSd 0.9 (0.6-1.2) LA Diam 2.5 (1.9-4.0) LVEF 55-60% LVIDd 4.6 (3.5-5.7) LVIDs 2.5 (2.0-3.5) %FS 47% LVPWd 1.0 (0.6-1.2) Ao Diam 2.5 (2.0-3.7) 2 DIMENSIONAL ASSESSMENT: RIGHT ATRIUM: NORMAL LEFT ATRIUM: NORMAL RIGHT VENTRICLE: NORMAL LEFT VENTRICLE: NORMAL TRICUSPID VALVE: NORMAL MITRAL VALVE: PULMONIC VALVE: AORTIC VALVE: NORMAL PERICARDIAL EFFUSION: SMALL AORTIC ROOT: NORMAL LEFT VENTRICULAR WALL MOTION: NORMAL DOPPLER/COLOR FLOW: SEE BELOW. COMMENTS: NORMAL LEFT VENTRICULAR EJECTION FRACTION 55-60% WITH NORMAL WALL MOTION. MILD MITRAL AND PULMONARY REGURGITATION. SMALL PERICARDIAL EFFUSION. TECHNOLOGIST: Eulogio NEWSOME
[2021-04-04 12:08] LABS: Urine Appearance CLOUDY (Clear); Urine Bilirubin NEGATIVE (Negataive); Urine Blood NEGATIVE (Negative); Urine Color YELLOW (Yellow); Urine Glucose NEGATIVE (Negative); Urine Protein NEGATIVE (Negative); Urine Specific Gravity >=1.030 (1.005-1.030); Urine Urobilinogen 0.2 mg/dL (0.2-1.0); Urine pH 5.5 (5.0-7.0)
[2021-04-04 12:12] LABS: Urine Microscopic Reflex ORDER UMIC
[2021-04-04 12:47] LABS: Urine Bacteria LOADED /HPF (<20); Urine RBC NONE SEEN /HPF (NONE SEEN)
--- NOTE | 2021-04-21 03:19 | P.DS ---
Discharge Date: 04/04/21 Disposition: ROUTINE DISCHARGE Discharge Condition: GOOD Reason for Admission: R sided weakness Brief History of Present Illness: Ms. Mcdermott is a 70 yo F with Parkinson's, essential tremor, hypothyroidism, HLD, seizures and anxiety here today for R sided weakness that began the night before last. She says she felt numbness in the R side of her body and she couldn't move her head to either side. She thought she was having a stroke. She reports headache, dizziness, blurry vision, and nausea. Now she says symptoms have resolved but she can't move her head. WBC 14.4. BUN 32, Cr 1.52, GFR 34. Hospital Course: Patient's workup is been unremarkable. Patient's clinical symptoms have improved. It appears patient may have had a TIA. This may been related to migraine with weakness as well periods at this time, patient is stable for discharge home with outpatient follow-up. Vital Signs/Physical Exam: Temp Pulse Resp BP Pulse Ox 98 F 69 17 115/57 L 95 04/04/21 08:00 04/04/21 08:00 04/04/21 08:00 04/04/21 08:00 04/04/21 08:00 General: Alert, In no apparent distress, Oriented x3 Laboratory Data at Discharge: WBC 8.70 K/uL (4.3-10.9) D 04/04/21 05:15 Hgb 11.8 g/dL (12.0-15.0) L 04/04/21 05:15 Hct 36.4 % (36.0-45.0) 04/04/21 05:15 Plt Count 194 K/uL (152-406) 04/04/21 05:15 PT 12.3 SECONDS (9.5-12.5) 04/03/21 16:34 INR 1.07 04/03/21 16:34 APTT 18.9 SECONDS (24.3-36.9) L 04/03/21 16:34 Sodium 142 mmol/L (136-145) 04/04/21 05:15 Potassium 4.0 mmol/L (3.5-5.1) 04/04/21 05:15 BUN 29 mg/dL (7-18) H 04/04/21 05:15 Creatinine 1.48 mg/dL (0.55-1.3) H 04/04/21 05:15 Glucose 172 mg/dL (74-106) H 04/04/21 05:15 Phosphorus 3.2 mg/dL (2.5-4.9) 04/04/21 05:15 Magnesium 1.8 mg/dL (1.8-2.4) 04/04/21 05:15 Total Bilirubin 0.3 mg/dL (0.2-1.0) 04/04/21 05:15 AST 12 U/L (15-37) L 04/04/21 05:15 ALT 13 U/L (12-78) 04/04/21 05:15 Alkaline Phosphatase 88 U/L (45-117) 04/04/21 05:15 Triglycerides 141 mg/dL (<150) 04/04/21 05:15 Cholesterol 168 mg/dL (<200) 04/04/21 05:15 HDL Cholesterol 36 mg/dL (40-60) L 04/04/21 05:15 Cholesterol/HDL Ratio 4.67 04/04/21 05:15 Home Medications: Aspirin [Aspirin EC 81 MG] 81 mg PO DAILY #30 tablet. 08/04/16 levETIRAcetam [Keppra*] 750 mg PO BID #60 tab 03/17/17 Levothyroxine Sodium 50 mcg PO DAILY 04/02/17 Alendronate [Fosamax*] 70 mg PO EVERY 7TH DAY 07/08/20 Esomeprazole Magnesium 40 mg PO DAILY 07/08/20 Gabapentin 200 mg PO BEDTIME 07/08/20 Hydrocodone Bit/Acetaminophen [Hydrocodon-Acetaminophn 10-325] 1 each PO Q6HP PRN 07/08/20 Ondansetron HCl [Zofran] 4 mg PO Q8HP PRN 07/08/20 Sertraline [Zoloft*] 100 mg PO DAILY #30 tab 07/09/20 Simvastatin 40 mg PO DAILY #30 tablet 04/04/21 Topiramate [Topamax*] 100 mg PO BID #60 tab 04/04/21 predniSONE [Deltasone] 20 mg PO BID #11 tab 04/04/21 New Medications: predniSONE [Deltasone] 20 mg PO BID #11 tab Simvastatin 40 mg PO DAILY #30 tablet Topiramate [Topamax*] 100 mg PO BID #60 tab Physician Discharge Instructions: PROBLEM: Right sided weakness GOAL: Clear understanding of disease process INSTRUCTIONS: Diet: heart healthy Activity: Fall precautions OK TO DC IV AND DC HOME FOLLOW-UP WITH PRIMARY CARE PROVIDER IN 1-2 WEEKS FOLLOW-UP WITH neurologist IN 1-2 WEEKS RETURN TO THE ER IF symptoms worsen CALL or TEXT DR. BOLTON AT [phone] IF ANY QUESTIONS REGARDING HOSPITAL STAY. PLEASE CALL THE FLOOR AT [phone] IF ANY MEDICATION OR NURSING QUESTIONS. Diet: AHA Activity: Fall precautions Followup: Emre Pearson MD [ACTIVE - CAN ADMIT] - Rg Valdes MD [Primary Care Provider] - Time spent managing pt's care (in minutes): 35
== END 2021-04-04 14:53 | disposition home or self-care (01) ==
LOC: ER 15:17 → ERHOLD 20:36 → 2ND 22:27
PROVIDERS: ADMIT Hospitalist; ATTEND Hospitalist
DX: G45.9 Transient cerebral ischemic attack, unspecified (principal); G20 Parkinson's disease; R56.9 Unspecified convulsions; R47.1 Dysarthria and anarthria; G43.909 Migraine, unspecified, not intractable, without status migrainosus; I12.9 Hypertensive chronic kidney disease with stage 1 through stage 4 chronic kidney disease, or unspecified chronic kidney disease; N18.30 Chronic kidney disease, stage 3 unspecified; N17.9 Acute kidney failure, unspecified; G25.0 Essential tremor; E03.9 Hypothyroidism, unspecified; E78.5 Hyperlipidemia, unspecified; K21.9 Gastro-esophageal reflux disease without esophagitis; E78.00 Pure hypercholesterolemia, unspecified; G25.81 Restless legs syndrome; F41.9 Anxiety disorder, unspecified; F32.9 Major depressive disorder, single episode, unspecified; Z20.822 Contact with and (suspected) exposure to COVID-19; Z96.82 Presence of neurostimulator; Z79.82 Long term (current) use of aspirin; Z79.899 Other long term (current) drug therapy; Z88.2 Allergy status to sulfonamides; Z88.3 Allergy status to other anti-infective agents; Z90.710 Acquired absence of both cervix and uterus; Z87.440 Personal history of urinary (tract) infections; Z82.49 Family history of ischemic heart disease and other diseases of the circulatory system; Z83.3 Family history of diabetes mellitus
CPT/HCPCS: 96365; 93005; 93306; 87088; 85025 ×2; 87086; 80048; 36415; 83735; 84100; 85610; 80061; 82947; 85730; 85652; 84443; 87077; 87186; 84484; 84439; 80053; 70496; 70498; 70450; 71045; 72040; 97116; 97161; 94760 ×2; 96375; 99285; 96366; U0003; Q9967; J1100 ×2; J2765; J1644 ×2; J3475; J2175; J1953; J7030 ×2; G0378 ×3; 81003; 81015